=== PATIENT | male | born 1955 | race Caucasian/White ===

== ENCOUNTER 2017-07-31 10:56 | Inpatient (IN) | payer MEDICAID, OTHER ==
[2017-07-31 11:38] LABS: Amphetamine Screen,Urine Not Detected (NotDetected); Barbiturate Screen,Urine Not Detected (NotDetected); Benzodiazepines Screen,Urine Not Detected (NotDetected); Cocaine Screen,Urine Not Detected (NotDetected); Methadone Screen, Urine Not Detected (NotDetected); Opiate Screen,Urine Not Detected (NotDetected); Oxycodone Screen, Urine Not Detected (NotDetected); Phencyclidine Screen,Urine Not Detected (NotDetected); Tricyclic Antidepressant,Urine Not Detected (NotDetected); Urn Cannabinoid Scrn Not Detected (NotDetected)
--- NOTE | 2017-07-31 12:41 | ED ---
Psych HPI - General Chief Complaint: Psychiatric Symptoms Stated Complaint: Petitioned Time Seen by Provider: 07/31/17 11:07 Source: patient, police, RN notes reviewed Mode of arrival: ambulatory Limitations: no limitations - History of Present Illness Initial Comments: This a 62-year-old male presents emergency Department chief complaint of depression, suicidal ideation. Patient is brought to emergency by police and petition. Patient sent a text to his daughter stating that the next time they see him They will find him he will be with his brains blown out. Patient states that he is lonely because his in October any states that his daughters will not talk to home. Patient was found [place] with shotgun in vehicle. Patient has been drinking alcohol today states that he normally drinks after work states it is actually scheduled to go to work later today. Patient denies any physical complaints. - Related Data Home Medications Medication Instructions Recorded Confirmed Cholecalciferol [Vitamin D3] 1,000 unit PO DAILY 07/31/17 07/31/17 Multivitamins, Thera [Multivitamin 1 tab PO DAILY 07/31/17 07/31/17 (formulary)] [place]-3 Fatty Acids/Fish Oil [Fish 1 cap PO DAILY 07/31/17 07/31/17 Oil 1,000 mg Softgel] Tadalafil [Cialis] 20 mg PO DAILY PRN 07/31/17 07/31/17 Turmeric Root Extract [Turmeric] 500 mg PO DAILY 07/31/17 07/31/17 Allergies Allergy/AdvReac Type Severity Reaction Status Date / Time No Known Allergies Allergy Verified 07/31/17 11:53 Review of Systems ROS Statement: Those systems with pertinent positive or pertinent negative responses have been documented in the HPI. ROS Other: All systems not noted in ROS Statement are negative. Past Medical History Past Medical History: No Reported History History of Any Multi-Drug Resistant Organisms: None Reported Additional Past Surgical History / Comment(s): retina surgery Past Psychological History: Anxiety Smoking Status: Current every day smoker Past Alcohol Use History: Daily Past Drug Use History: Marijuana General Exam Limitations: no limitations General appearance: alert, in no apparent distress Head exam: Present: atraumatic, normocephalic, normal inspection Eye exam: Present: normal appearance, PERRL, EOMI. Absent: scleral icterus, conjunctival injection, periorbital swelling ENT exam: Present: normal exam, mucous membranes moist Neck exam: Present: normal inspection. Absent: tenderness, meningismus, lymphadenopathy Respiratory exam: Present: normal lung sounds bilaterally. Absent: respiratory distress, wheezes, rales, rhonchi, stridor Cardiovascular Exam: Present: regular rate, normal rhythm, normal heart sounds. Absent: systolic murmur, diastolic murmur, rubs, gallop, clicks GI/Abdominal exam: Present: soft, normal bowel sounds. Absent: distended, tenderness, guarding, rebound, rigid Neurological exam: Present: alert, oriented X3, CN II-XII intact Skin exam: Present: warm, dry, intact, normal color. Absent: rash Course Vital Signs 07/31/17 11:02 Temperature 98.5 F Pulse Rate 79 Respiratory 18 Rate Blood Pressure 156/96 O2 Sat by Pulse 97 Oximetry Medical Decision Making - Lab Data Lab Results 07/31/17 Range/Units 11:20 Urine Opiates Screen Not Detected (NotDetected) Ur Oxycodone Screen Not Detected (NotDetected) Urine Methadone Screen Not Detected (NotDetected) Ur Propoxyphene Screen Not Detected (NotDetected) Ur Barbiturates Screen Not Detected (NotDetected) U Tricyclic Antidepress Not Detected (NotDetected) Ur Phencyclidine Scrn Not Detected (NotDetected) Ur Amphetamines Screen Not Detected (NotDetected) U Methamphetamines Scrn Not Detected (NotDetected) U Benzodiazepines Scrn Not Detected (NotDetected) Urine Cocaine Screen Not Detected (NotDetected) U Marijuana (THC) Screen Not Detected (NotDetected) Disposition Clinical Impression: Depression, Suicidal ideation, Alcohol intoxication Disposition: ADMITTED IP TO THIS [facility] Condition: Stable Referrals: Moiz Goldstein MD [Primary Care Provider] - 1-2 days
[2017-07-31] MEDS ORDERED: ACETAMINOPHEN TAB 325 MG TAB PO PRN (18:49)
[2017-07-31] MEDS ORDERED: MAGNESIUM HYDROXIDE 2,400 MG/10 ML CUP PO PRN (18:49)
[2017-07-31] MEDS ORDERED: MAG HYDROX/AL HYDROX/SIMETH 30 ML CUP PO PRN (18:49)
[2017-07-31] MEDS ORDERED: LORazepam 1 MG TAB PO PRN (18:49)
[2017-07-31 21:18] VITALS: BMI 21.4
[2017-08-01] MEDS: NICOTINE 21MG/24HR PATCH TRANSDERM SCH (08:06)
[2017-08-01 09:00] LABS: Basophils % (A) 1 %; Eosinophils # (A) 0.1 k/uL (0-0.7); Eosinophils % (A) 1 %; HCT 49.8 % (39.0-53.0); HGB 16.7 gm/dL (13.0-17.5); Lymphocytes # (A) 1.1 k/uL (1.0-4.8); Lymphocytes % (A) 16 %; MCH 33.5 pg (25.0-35.0); MCHC 33.5 g/dL (31.0-37.0); MCV 99.9 fL (80.0-100.0); Mean Platelet Volume 7.5; Monocytes # (A) 0.6 k/uL (0-1.0); Monocytes % (A) 9 %; Neutrophils # (A) 4.9 k/uL (1.3-7.7); Neutrophils % (A) 72 %; Platelet Count 289 k/uL (150-450); RBC 4.99 m/uL (4.30-5.90); RDW 12.5 % (11.5-15.5); WBC 6.8 k/uL (3.8-10.6)
[2017-08-01 09:19] LABS: ALT 34 U/L (21-72); AST 42 U/L (17-59); Albumin 4.4 g/dL (3.5-5.0); Alkaline Phosphatase 75 U/L (38-126); Anion Gap 12 mmol/L; Blood Urea Nitrogen 8 mg/dL (9-20); Calcium 9.8 mg/dL (8.4-10.2); Carbon Dioxide 29 mmol/L (22-30); Chloride 99 mmol/L (98-107); Glucose 123 mg/dL (74-99); Potassium 4.6 mmol/L (3.5-5.1); Sodium 140 mmol/L (137-145); Total Bilirubin 1.3 mg/dL (0.2-1.3); Total Protein 7.3 g/dL (6.3-8.2)
[2017-08-01] MEDS: LORazepam 1 MG TAB PO SCH ×2 (10:09→20:06)
[2017-08-01] MEDS: ESCITALOPRAM 10 MG TAB PO SCH (10:09)
--- NOTE | 2017-08-01 10:13 | P.HP ---
Psychiatric H&P - . History & Physical: Allergies Allergy/AdvReac Type Severity Reaction Status Date / Time No Known Allergies Allergy Verified 07/31/17 20:51 Vital Signs Temp 97.5 F L 08/01/17 06:32 Pulse 59 L 08/01/17 06:32 Resp 16 08/01/17 06:32 BP 130/88 08/01/17 06:32 Pulse Ox 94 L 07/31/17 19:22 Intake & Output 07/31/17 08/01/17 08/01/17 18:59 06:59 18:59 Weight 76.204 kg 71.7 kg Laboratory Last Values WBC 6.8 k/uL (3.8-10.6) 08/01/17 08:26 RBC 4.99 m/uL (4.30-5.90) 08/01/17 08:26 Hgb 16.7 gm/dL (13.0-17.5) 08/01/17 08:26 Hct 49.8 % (39.0-53.0) 08/01/17 08:26 MCV 99.9 fL (80.0-100.0) 08/01/17 08:26 MCH 33.5 pg (25.0-35.0) 08/01/17 08:26 MCHC 33.5 g/dL (31.0-37.0) 08/01/17 08:26 RDW 12.5 % (11.5-15.5) 08/01/17 08:26 Plt Count 289 k/uL (150-450) 08/01/17 08:26 Neutrophils % 72 % 08/01/17 08:26 Lymphocytes % 16 % 08/01/17 08:26 Monocytes % 9 % 08/01/17 08:26 Eosinophils % 1 % 08/01/17 08:26 Basophils % 1 % 08/01/17 08:26 Neutrophils # 4.9 k/uL (1.3-7.7) 08/01/17 08:26 Lymphocytes # 1.1 k/uL (1.0-4.8) 08/01/17 08:26 Monocytes # 0.6 k/uL (0-1.0) 08/01/17 08:26 Eosinophils # 0.1 k/uL (0-0.7) 08/01/17 08:26 Basophils # 0.0 k/uL (0-0.2) 08/01/17 08:26 Sodium 140 mmol/L (137-145) 08/01/17 08:26 Potassium 4.6 mmol/L (3.5-5.1) 08/01/17 08:26 Chloride 99 mmol/L (98-107) 08/01/17 08:26 Carbon Dioxide 29 mmol/L (22-30) 08/01/17 08:26 Anion Gap 12 mmol/L 08/01/17 08:26 BUN 8 mg/dL (9-20) L 08/01/17 08:26 Creatinine 0.64 mg/dL (0.66-1.25) L 08/01/17 08:26 Est GFR (CKD-EPI)AfAm >90 (>60 ml/min/1.73 sqM) 08/01/17 08:26 Est GFR (CKD-EPI)NonAf >90 (>60 ml/min/1.73 sqM) 08/01/17 08:26 Glucose 123 mg/dL (74-99) H 08/01/17 08:26 Calcium 9.8 mg/dL (8.4-10.2) 08/01/17 08:26 Total Bilirubin 1.3 mg/dL (0.2-1.3) 08/01/17 08:26 AST 42 U/L (17-59) 08/01/17 08:26 ALT 34 U/L (21-72) 08/01/17 08:26 Alkaline Phosphatase 75 U/L (38-126) 08/01/17 08:26 Total Protein 7.3 g/dL (6.3-8.2) 08/01/17 08:26 Albumin 4.4 g/dL (3.5-5.0) 08/01/17 08:26 TSH 1.290 mIU/L (0.465-4.680) 08/01/17 08:26 Urine Opiates Screen Not Detected (NotDetected) 07/31/17 11:20 Ur Oxycodone Screen Not Detected (NotDetected) 07/31/17 11:20 Urine Methadone Screen Not Detected (NotDetected) 07/31/17 11:20 Ur Propoxyphene Screen Not Detected (NotDetected) 07/31/17 11:20 Ur Barbiturates Screen Not Detected (NotDetected) 07/31/17 11:20 U Tricyclic Antidepress Not Detected (NotDetected) 07/31/17 11:20 Ur Phencyclidine Scrn Not Detected (NotDetected) 07/31/17 11:20 Ur Amphetamines Screen Not Detected (NotDetected) 07/31/17 11:20 U Methamphetamines Scrn Not Detected (NotDetected) 07/31/17 11:20 U Benzodiazepines Scrn Not Detected (NotDetected) 07/31/17 11:20 Urine Cocaine Screen Not Detected (NotDetected) 07/31/17 11:20 U Marijuana (THC) Screen Not Detected (NotDetected) 07/31/17 11:20 08/01/17 10:03 IDENTIFYING DATA: This patient is a 62-year-old who was admitted to the mental health unit through the emergency room for acute suicidal ideation. HPI: The patient was found [place] the [place] at his 's grave consuming alcohol and he had a firearm in his vehicle. He admits that he sent a text message to family members stating he was going to "blow my head off". The patient states he has been depressed ever since the sudden of his at the end of September last year. After 36 years of marriage she suddenly of a myocardial infarction. He reports feeling depressed he has been more tearful over the last 6-8 months. Appetite is been poor he has lost weight. Energy level is poor sleep is poor. He endorses feeling hopeless area he states he feels extremely lonely. He states he has gotten to this point as he has no family that visits him. He admits his alcohol use probably has driven away some family members. He has been drinking on a daily basis and states alcohol has always been part of his life. There are times when he more excessively drinks. He is reporting no homicidal ideation he is endorsing no auditory or visual hallucinations. He states he believes his 's ghost is in the house as he will hear different noises. He endorses no paranoid or persecutory thoughts. He endorses no history of hypomanic or manic episodes. He believes that the sustainable development policy analyst has taken his firearms from his home. PAST PSYCHIATRIC HISTORY: This is the patient's first inpatient psychiatric admission, no history of suicide attempts prior to this, he states he's never been prescribed psychotropic medication. PMH: He reports after his 's he had a retinal tear of his left eye and a cataract of his right eye. ALLERGIES: NO KNOWN DRUG ALLERGIES MEDICATIONS: None CHEMICAL DEPENDENCY HISTORY: The patient uses alcohol on a daily basis consuming 4-6 beers at least and this can go as high as 8-10 beers. He states in the recent past he was overusing vodka. He reports that he grabbed a fifth of liquor and was consuming that last night before going to the cemetery. He has never been placed in residential treatment for chemical dependency reasons. He reports using marijuana once a month. He endorses no other use of illicit drugs. FAMILY PSYCHIATRIC HISTORY: He states that his father paternal grandmother and paternal aunts were all known to have signs of dementia after the age of 75, no suicides in the family FAMILY CHEMICAL DEPENDENCY HISTORY: Reports a nephew was arrested for substance use SOCIAL HISTORY: The patient is 62 years old he is a as of last September. He was for 36 years and states the marriage was good. He has 2 daughters that both reside approximate 20 minutes from his home. He has 2 sisters both younger than him. He had been off of work after the of his and his eye injury and recently returned to work 2 weeks ago. 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 He has a high school education no history of service. He is originally from [facility] [place] [facility]. Legal history includes an arrest for driving under the influence 1.5 years ago, no history of abuse. MENTAL STATUS EXAM: The patient is a male appearing his stated age, he has a disheveled appearance he is dressed in his own clothing. He is balding and wears a mustache. Eye contact is intermittent. He endorses a depressed and hopeless mood. He reports no thoughts of harming anyone else. He endorses no active auditory or visual hallucinations he endorses no specific delusions. There is no observed evidence of psychosis. Speech is fluent spontaneous nonpressured. He can be mildly circumstantial at times. He demonstrates no tangential thinking loose associations or flight of ideas. He does not appear hypomanic or manic. He demonstrates no abnormal involuntary movements, he demonstrates no verbal or physical aggressiveness. He maintains a constricted affect. He is oriented to person place and date. He is unable to spell world backwards but he is able to name the days of the week backwards. STRENGTHS/WEAKNESSES: Strengths: Housing, recent employment weaknesses: Alcohol use, isolation from family INTELLECTUAL FUNCTIONING: Average IMPRESSIONS: [] 1. 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 Ongoing grief related to loss of and disconnect from family members PLAN: The patient has been admitted to the mental health unit he has signed in voluntarily. We reviewed his presenting symptoms and treatment options. We decided to initiate Lexapro 10 mg daily for depressive and anxiety symptoms. We discussed potential benefits and side effects of Lexapro and his questions were answered. We will continue to use Ativan to prevent alcohol withdrawal. Vital signs are being monitored regularly. He will be seen by internal medicine for routine history and physical exam. Social work has met with the patient to complete a psychosocial assessment. We will monitor him for safety and encourage his full participation in the milieu. We will facilitate a support meeting involving friends and/or family as the patient will allow. We will verify his removal weapons from his home. We discussed the option of him attending inpatient chemical dependency treatment.
[2017-08-01] MEDS: FOLIC ACID 1 MG TAB PO SCH (11:09)
[2017-08-01] MEDS: MULTIVITAMINS, THERA 1 EACH TAB PO SCH (11:09)
[2017-08-01] MEDS: CHOLECALCIFEROL 1,000 UNIT TAB PO SCH (11:09)
[2017-08-01] MEDS: THIAMINE 100 MG TAB PO SCH (11:09)
[2017-08-01] MEDS: traZODone HCL 50 MG TAB PO SCH (20:06)
--- NOTE | 2017-08-01 23:11 | CONS ---
CONSULTATION DATE OF SERVICE: 08/01/2017. REASON FOR CONSULTATION: Advice regarding anxiety and other multiple medical issues, requested by Dr. Hill. HISTORY OF PRESENT ILLNESS: This is a 62-year-old gentleman with a past medical history of anxiety, history of nicotine dependence, history of marijuana, being followed by Dr. Goldstein in the outpatient setting, is admitted for psychiatric evaluation. There is no history of any fevers or rigors. No history of headache, loss of consciousness or seizures. The patient apparently takes up to 4 beers. The patient is slightly anxious and jittery at this time. The patient also has a significant history of smoking also. PAST MEDICAL HISTORY: History of possible alcohol, history of restlessness and anxiety. HOME MEDICATIONS: 1. Turmeric extract 500 mg p.o. daily. 2. Cialis 20 mg daily p.r.n. 3. [place]-3 fatty acid daily. 4. Multivitamin D 3000 daily. ALLERGIES: None. FAMILY HISTORY: No history of heart disease or strokes in the family. SOCIAL HISTORY: History of marijuana, history of smoking, history of alcohol. REVIEW OF SYSTEMS: ENT: No diminished vision. CARDIOVASCULAR: No angina. RESPIRATORY: No cough. GI: No nausea. : No dysuria. NERVOUS SYSTEM: No numbness or weakness. ALLERGY: No asthma or hayfever. MUSCULOSKELETAL: As mentioned. HEMATOLOGY: Negative. ENDOCRINE: No history of diabetes or hypothyroidism. CONSTITUTIONAL: As mentioned. PSYCHIATRY: As mentioned. PHYSICAL EXAMINATION: Alert oriented x3. Pulse is 71, blood pressure 141/82, respiration 18, temperature 97.4, pulse ox 94% room air. HEENT: Conjunctivae normal. NECK: No JVD. CARDIOVASCULAR: S1 and S2 muffled. LUNGS: Breath sounds diminished at the bases. Few rhonchi. No crackles. ABDOMEN: Soft, nontender. No mass palpable. LEGS: No edema, no swelling. NERVOUS SYSTEM: Higher functions as mentioned earlier. Moves all 4 limbs. No focal deficits. Power and sensation grossly intact. No facial deviation. No signs of cerebellar dysfunction. Gait is normal. No sensory abnormalities. SKIN: No ulcer, rash or bleeding. LYMPHATICS: None. JOINTS: No deformity or arthropathy. LABS: CBC within normal limits. Sodium 140, potassium 4.6. ASSESSMENT: 1. Depression. 2. History of EtOH. 3. History of nicotine dependence. 4. History of THC. 5. History of retina surgery. 6. History of anxiety. RECOMMENDATIONS: This 62-year-old gentleman presented for psychiatric evaluation with multiple medical issues as mentioned earlier. I would recommend Habitrol patch, CIWA protocol, p.r.n. Ativan, supplement vitamins. We will follow the patient closely. The patient will be asked to follow up with primary physician closely. Thank you, Dr. Boyer, for letting us participate in this patient's care. CHARLENE / JONAHN: [id number] / MARIO
[2017-08-02] MEDS: NICOTINE 21MG/24HR PATCH TRANSDERM SCH (08:47)
[2017-08-02] MEDS: ESCITALOPRAM 10 MG TAB PO SCH (08:47)
[2017-08-02] MEDS: FOLIC ACID 1 MG TAB PO SCH (08:47)
[2017-08-02] MEDS: MULTIVITAMINS, THERA 1 EACH TAB PO SCH (08:48)
[2017-08-02] MEDS: CHOLECALCIFEROL 1,000 UNIT TAB PO SCH (08:48)
[2017-08-02] MEDS: THIAMINE 100 MG TAB PO SCH (08:48)
[2017-08-02] MEDS: LORazepam 1 MG TAB PO SCH ×2 (08:48→20:08)
--- NOTE | 2017-08-02 09:17 | P.PN ---
Progress Note - Text Interval history: The patient is found in group he follows me to an interview room. He reports his mood is improved. He states he was able to sleep last night with use of trazodone. Appetite stable. He was able to speak to his daughter via phone and he believes they are both going to visit this evening. He is looking forward to the opportunity to tell them how lonely he is been and he misses their company. He acknowledges that they are likely going to want him to stop drinking alcohol. We discussed treatment for his alcohol use disorder and he still does not wish to attend inpatient chemical dependency treatment. He states his plan is to attend AA after discharge. He has no questions regarding Lexapro. Mental status exam: The patient is alert he is a disheveled appearance he hasn' t shaved. Eye contact is appropriate speech is fluent spontaneous nonpressured. He reports feeling lonely but he feels safe here in the hospital. He is reporting no homicidal ideation intent or plan. He will be more hopeful if the meeting with his daughters goes well tonight. He is endorsing no auditory or visual hallucinations or any specific delusions. There is no observed evidence of psychosis. Thought process is mildly circumstantial he demonstrates no tangential thinking loose associations or flight of ideas. He does not appear hypomanic or manic. Insight and judgment improving. He remains oriented to person place and date. He demonstrates no verbal or physical aggressiveness. Plan: The patient will continue on the medication as prescribed. His vital signs are stable there is no observed evidence of alcohol withdrawal. We will start to taper off of the Ativan tomorrow. We will monitor him for safety and encourage his participation in the milieu. We will await the outcome of the visit with his daughters. If he demonstrates sufficient improvement he may be appropriate for discharge by end of the week.
[2017-08-02] MEDS: traZODone HCL 50 MG TAB PO SCH (20:08)
[2017-08-03] MEDS: ESCITALOPRAM 10 MG TAB PO SCH (09:33)
[2017-08-03] MEDS: NICOTINE 21MG/24HR PATCH TRANSDERM SCH (09:33)
[2017-08-03] MEDS: LORazepam 1 MG TAB PO SCH (09:35)
[2017-08-03] MEDS: MULTIVITAMINS, THERA 1 EACH TAB PO SCH (12:34)
[2017-08-03] MEDS: THIAMINE 100 MG TAB PO SCH (12:34)
[2017-08-03] MEDS: CHOLECALCIFEROL 1,000 UNIT TAB PO SCH (12:34)
[2017-08-03] MEDS: FOLIC ACID 1 MG TAB PO SCH (12:34)
--- NOTE | 2017-08-03 12:39 | P.PN ---
Progress Note - Text Progress Note Date: 08/03/17 Interval History: Patient is a 62-year-old male is being seen in coverage for Dr. Hill. Patient states that both of his daughters visited last night and that it went quite well. He states that his daughter who is getting this weekend in [place] has invited him to the wedding. Patient states that the woman that was living in his house will be moving out. He states that he is hopeful that the relationship with his daughters will continue to improve and go back to the way that it was in the past. Patient states that he is no longer having any suicidal thoughts and reported no signs of withdrawal stating that he is eating well. He states that he slept better last night than he has for quite some time. He states that he is continuing to grieve the loss of his 10 months ago but states that he is coping with this better. He states that he began a new job 2 weeks ago and will return to this job once he is discharged. Patient had no complaints of side effects from the medication. Mental Status: Appearance/Attitude: Patient is casually dressed, makes good eye contact and is cooperative. Behavior: Patient does not exhibit any psychomotor agitation or retardation and there is no tremulousness noted on exam. Speech/Language: Patient's speech is spontaneous of normal volume and rhythm and he is coherent. Thought Process: Patient is goal-directed there is no evidence of loose association or flight of ideas. Thought Content: Patient denies any auditory or visual hallucinations and no delusions or paranoid ideation is elicited. Patient states that he and his daughters visited last night and the visit went well. Patient states that he continues to grieve the loss of his . Patient is hopeful to be discharged so that he can attend his daughter's wedding on the weekend in [place]. Patient states that he slept well and is eating well. He reports no complaints of withdrawal. Suicidal/Homicidal Ideation: Patient denies any current suicidal or homicidal ideation. Sensorium/Cognition: Patient is alert and oriented to person, place, and time and his recent and remote memory are grossly intact. Mood/Affect: Patient's mood is pleasant and his affect is appropriate Insight/Judgment: Patient's insight and judgment are intact Assessment: Patient states that the visit with his daughters went well and that they have ironed out the difficulties amongst themselves. He states that he is here to be discharged so that he can attend his daughter's wedding in [place] this weekend. Patient states that he is not feeling tremulous and he is able to eat well. He reports that he is sleeping better than he has for some period of time. Patient reports no side effects from the medication. Patient has been attending groups and activities. Plan: Patient will continue on Lexapro 10 mg and trazodone 50 mg, will discontinue patient's scheduled Ativan and continue the Ativan as needed. Patient's vital signs are stable. Patient continues to require hospitalization to further stabilize his mood, anticipate discharge within the next day or 2.
[2017-08-03] MEDS: traZODone HCL 50 MG TAB PO SCH (21:47)
[2017-08-04 06:45] VITALS: BP 156/88; PULSE 60; RESP 18; TEMP 97.4
[2017-08-04] MEDS: THIAMINE 100 MG TAB PO SCH (08:48)
[2017-08-04] MEDS: MULTIVITAMINS, THERA 1 EACH TAB PO SCH (08:48)
[2017-08-04] MEDS: FOLIC ACID 1 MG TAB PO SCH (08:48)
[2017-08-04] MEDS: ESCITALOPRAM 10 MG TAB PO SCH (08:48)
[2017-08-04] MEDS: CHOLECALCIFEROL 1,000 UNIT TAB PO SCH (08:48)
[2017-08-04] MEDS: NICOTINE 21MG/24HR PATCH TRANSDERM SCH (08:48)
--- NOTE | 2017-08-04 09:07 | P.DS ---
Providers Date of admission: 07/31/17 18:39 Expected date of discharge: 08/04/17 Attending physician: [place] Consults: 08/01/17 12:50 Consult Physician Routine Consulting Provider: Donna Albarado Consult Reason/Comments: H & P & medical management Do you want consulting provider notified?: Already Contacted Primary care physician: Moiz Goldstein - Discharge Diagnosis(es) (1) Major depressive disorder, single episode, severe w psychotic behavior Current Visit: Yes Status: Acute Priority: High (2) Alcohol use disorder Current Visit: Yes Status: Acute Priority: High Hospital Course: Brief summary of admission note: This patient is a 62-year-old who was admitted to the mental health unit through the emergency room for acute suicidal ideation. [place] and he had a firearm in his vehicle. He was at his 's grave and had sent text messages to family stating he was going to shoot himself. His at the end of September last year after 36 years of marriage. He reported feeling depressed tearful and it had been getting worse. Sleep had been poor appetite decreased and he felt hopeless. He felt overwhelmed as well by his daughter's having little contact with him. For full details please refer to my psychiatric evaluation dictated 08/01/2017. Summary of hospital course: The patient was admitted to the mental health unit voluntarily. We reviewed his presenting symptoms and medication options. We decided to treat his symptoms of depression with Lexapro 10 mg daily. We initiated trazodone 50 mg at bedtime for sleep which she found effective. He reported no side effects from either medication. He was seen by internal medicine for routine history and physical exam. We did schedule him Ativan twice daily for several days and this was discontinued. He demonstrated no overt evidence of alcohol withdrawal. We discussed his excessive use of alcohol and recommended that he attend inpatient chemical dependency treatment but he declined that option. He states he will attend AA. He demonstrated no agitated behavior. He reports that a visit including his 2 daughters went quite well and he is much more hopeful that they will reconnect. Mental status exam: The patient is a male appearing his stated age. Eye contact is appropriate speech is fluent spontaneous nonpressured. He reports his mood is much better. He denies having any hopelessness thinking or any suicidal or homicidal ideation intent or plan. He states "I have too many goals". He is reporting no auditory or visual hallucinations or any specific delusions. There is no observed evidence of psychosis. Thought process is linear he demonstrates no tangential thinking loose associations or flight of ideas. He does not appear hypomanic or manic. He is oriented to person place and date. Affect is appropriately expressive. He demonstrates future oriented thinking. Impressions: 1. 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 Ongoing grief, strained relationship with daughters Plan: The patient is being discharged mental health unit today. He will continue on Lexapro 10 mg daily and trazodone 50 mg at bedtime. He will return to his own home. We believe he has no firearms at his home or in his vehicle. He does not wish to participate in inpatient chemical dependency treatment. He does not wish to have a medication prescribed for alcohol use disorder specifically. He plans on attending AA as an outpatient. He is agreeable to attend his outpatient mental health appointment which social work will arrange. We discussed that his safety risk is elevated with continued alcohol use. At this time there is no imminent safety risk he is appropriate for discharge to outpatient care. He is instructed to return to the hospital with any acute safety concerns. Patient Condition at Discharge: Stable Plan - Discharge Summary Discharge Rx Participant: Yes New Discharge Prescriptions: New Escitalopram [Lexapro] 10 mg PO DAILY #30 tab Nicotine 21Mg/24Hr Patch [Habitrol] 1 patch TRANSDERM DAILY #12 patch traZODone HCL [Desyrel] 50 mg PO HS #30 tab Continue Cholecalciferol [Vitamin D3] 1,000 unit PO DAILY Tadalafil [Cialis] 20 mg PO DAILY PRN PRN Reason: E.D. [place]-3 Fatty Acids/Fish Oil [Fish Oil 1,000 mg Softgel] 1 cap PO DAILY Multivitamins, Thera [Multivitamin (formulary)] 1 tab PO DAILY Discontinued Turmeric Root Extract [Turmeric] 500 mg PO DAILY Discharge Medication List Cholecalciferol [Vitamin D3] 1,000 unit PO DAILY 07/31/17 [History] Multivitamins, Thera [Multivitamin (formulary)] 1 tab PO DAILY 07/31/17 [History ] [place]-3 Fatty Acids/Fish Oil [Fish Oil 1,000 mg Softgel] 1 cap PO DAILY [History] Tadalafil [Cialis] 20 mg PO DAILY PRN 07/31/17 [History] Escitalopram [Lexapro] 10 mg PO DAILY #30 tab 08/04/17 [Rx] Nicotine 21Mg/24Hr Patch [Habitrol] 1 patch TRANSDERM DAILY #12 patch 08/04/17 [ Rx] traZODone HCL [Desyrel] 50 mg PO HS #30 tab 08/04/17 [Rx] Follow up Appointment(s)/Referral(s): Moiz Goldstein MD [Primary Care Provider] - 1-2 days
== END 2017-08-04 13:21 | disposition home or self-care (01) | DRG 885 ==
LOC: EC 10:56 → 3MHU 18:39
PROVIDERS: ADMIT Psychiatry & Neurology Psychiatry; ATTEND Psychiatry & Neurology Psychiatry
DX: F32.3 Major depressive disorder, single episode, severe with psychotic features (principal); R45.851 Suicidal ideations; F12.90 Cannabis use, unspecified, uncomplicated; F10.129 Alcohol abuse with intoxication, unspecified; F17.210 Nicotine dependence, cigarettes, uncomplicated; F41.9 Anxiety disorder, unspecified; H26.9 Unspecified cataract; F43.21 Adjustment disorder with depressed mood
CPT/HCPCS: 80053; 80306; 82075; 84443; 85025; 99285

== ENCOUNTER 2021-08-24 03:06 | Inpatient (IN) | payer MEDICARE ==
[2021-08-24] MEDS ORDERED: SODIUM CHLORIDE 0.9% 1,000 ML IV STA (03:09)
--- NOTE | 2021-08-24 03:10 | ED ---
Alcohol HPI - General Stated Complaint: ETOH Time Seen by Provider: 08/24/21 03:09 Source: RN notes reviewed, old records reviewed Mode of arrival: EMS Limitations: altered mental status - History of Present Illness Initial Comments: There is a 66 show male was a very poor historian secondary to alcohol intoxication apparently presented today for evaluation regarding multiple falls. Patient poor story history obtained by EMS and patient's prior charting. 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 ROS Other: All systems not noted in ROS Statement are negative. Past Medical History Past Medical History: No Reported History History of Any Multi-Drug Resistant Organisms: None Reported Additional Past Surgical History / Comment(s): retina surgery Past Psychological History: Anxiety Past Alcohol Use History: Daily Past Drug Use History: Marijuana - Past Family History Father Additional Family Medical History / Comment(s): alzheimers General Exam General appearance: alert, in no apparent distress Head exam: Present: atraumatic, normocephalic, normal inspection Eye exam: Present: normal appearance, PERRL, EOMI. Absent: scleral icterus, co njunctival injection, periorbital swelling ENT exam: Present: normal exam, mucous membranes moist Neck exam: Present: normal inspection. Absent: tenderness, meningismus, lymphadenopathy Respiratory exam: Present: normal lung sounds bilaterally. Absent: respiratory distress, wheezes, rales, rhonchi, stridor Cardiovascular Exam: Present: regular rate, normal rhythm, normal heart sounds. Absent: systolic murmur, diastolic murmur, rubs, gallop, clicks GI/Abdominal exam: Present: soft, normal bowel sounds. Absent: distended, tenderness, guarding, rebound, rigid Extremities exam: Present: normal inspection, full ROM, normal capillary refill. Absent: tenderness, pedal edema, joint swelling, calf tenderness Back exam: Present: normal inspection Neurological exam: Present: alert, oriented X3, CN II-XII intact Psychiatric exam: Present: normal affect, normal mood Skin exam: Present: warm, dry, intact, normal color. Absent: rash Course Vital Signs 08/24/21 08/24/21 03:07 05:44 Temperature 98.9 F 98.9 F Pulse Rate 77 78 Respiratory 18 18 Rate Blood Pressure 128/82 112/71 O2 Sat by Pulse 95 95 Oximetry - Reevaluation(s) Reevaluation #1: 08/24/21 Medical record is reviewed Reevaluation #2: 08/24/21 Patient informed of results and questions answered Reevaluation #3: 08/24/21 remained severely intoxicated here in the ER, no clinical improvement will be admitted for alcohol poisoning - Consultations Consultation #1: Spoke with admitting physicians who agree to admit this patient Medical Decision Making - Medical Decision Making 66 male significantly alcohol intoxicated. Patient be admitted for alcohol intoxication, patient also has suspected multiple electrolyte derangements - Lab Data Result diagrams: 08/25/21 06:33 08/25/21 06:33 Lab Results 08/24/21 08/24/21 08/24/21 Range/Units 03:20 03:49 03:49 WBC 4.6 (3.8-10.6) k/uL RBC 4.08 L (4.30-5.90) m/uL Hgb 13.9 (13.0-17.5) gm/dL Hct 41.3 (39.0-53.0) % MCV 101.1 H (80.0-100.0) fL MCH 34.1 (25.0-35.0) pg MCHC 33.8 (31.0-37.0) g/dL RDW 15.4 (11.5-15.5) % Plt Count 73 L (150-450) k/uL MPV 9.2 Neutrophils % 69 % Lymphocytes % 22 % Monocytes % 7 % Eosinophils % 0 % Basophils % 1 % Neutrophils # 3.1 (1.3-7.7) k/uL Lymphocytes # 1.0 (1.0-4.8) k/uL Monocytes # 0.3 (0-1.0) k/uL Eosinophils # 0.0 (0-0.7) k/uL Basophils # 0.0 (0-0.2) k/uL Manual Slide Review Performed Macrocytosis Slight Target Cells Present PT 10.2 (9.0-12.0) sec INR 0.9 (<1.2) Sodium 139 (137-145) mmol/L Potassium 5.6 H (3.5-5.1) mmol/L Chloride 104 (98-107) mmol/L Carbon Dioxide 24 (22-30) mmol/L Anion Gap 11 mmol/L BUN 9 (9-20) mg/dL Creatinine 0.57 L (0.66-1.25) mg/dL Est GFR (CKD-EPI)AfAm >90 (>60 ml/min/1.73 sqM) Est GFR (CKD-EPI)NonAf >90 (>60 ml/min/1.73 sqM) Glucose 85 (74-99) mg/dL Calcium 7.9 L (8.4-10.2) mg/dL Phosphorus 3.7 (2.5-4.5) mg/dL Magnesium 1.5 L (1.6-2.3) mg/dL Total Bilirubin 1.5 H (0.2-1.3) mg/dL AST 258 H (17-59) U/L ALT 80 H (4-49) U/L Alkaline Phosphatase 169 H (38-126) U/L Total Protein 7.7 (6.3-8.2) g/dL Albumin 4.2 (3.5-5.0) g/dL Lipase 114 (23-300) U/L Serum Alcohol 410 H* mg/dL Disposition Clinical Impression: Alcohol intoxication, Alcohol use disorder, Alcohol poisoning, Alcohol abuse, Alcohol withdrawal syndrome Disposition: ADMITTED IP TO THIS HOSP Condition: Fair Is patient prescribed a controlled substance at d/c from ED?: No Time of Disposition: 05:00
--- NOTE | 2021-08-24 03:41 | CT ---
EXAMINATION TYPE: CT brain patsyine wo con DATE OF EXAM: 08/24/2021 COMPARISON: None HISTORY: ETOH, with fall, no prior CT DLP: 1449.8 mGycm Automated exposure control for dose reduction was used. Images of the brain and cervical spine obtained with no contrast. There is cerebral cortical atrophy. There is no mass effect or midline shift. There is no sign of int racranial hemorrhage. The calvarium is intact. There is normal aeration of the mastoid sinuses. Skull base is intact. There is normal alignment of the cervical vertebra. There is degenerative disc space narrowing at C5- 6. Posterior elements are intact. No compression fracture. Facet joints are intact. IMPRESSION: Spondylotic changes at C5-6. Mild degenerative disc change also at C3-4. No fracture. Cerebral atrophy. No acute intracranial abnormality.
[2021-08-24 03:46] LABS: ALT 80 U/L (4-49); AST 258 U/L (17-59); African American GFR (CKD) >90 (>60 ml/min/1.73 sqM); Albumin 4.2 g/dL (3.5-5.0); Alkaline Phosphatase 169 U/L (38-126); Anion Gap 11 mmol/L; Blood Urea Nitrogen 9 mg/dL (9-20); Calcium 7.9 mg/dL (8.4-10.2); Carbon Dioxide 24 mmol/L (22-30); Chloride 104 mmol/L (98-107); Glucose 85 mg/dL (74-99); Lipase 114 U/L (23-300); Magnesium 1.5 mg/dL (1.6-2.3); Non-African American GFR(CKD) >90 (>60 ml/min/1.73 sqM); Phosphorus 3.7 mg/dL (2.5-4.5); Sodium 139 mmol/L (137-145); Total Bilirubin 1.5 mg/dL (0.2-1.3); Total Protein 7.7 g/dL (6.3-8.2)
[2021-08-24 03:59] LABS: Alcohol 410 mg/dL; Potassium 5.6 mmol/L (3.5-5.1)
[2021-08-24 04:11] LABS: INR 0.9 (<1.2); Prothrombin Time 10.2 sec (9.0-12.0)
[2021-08-24 04:20] LABS: Basophils % (A) 1 %; Eosinophils % (A) 0 %; HCT 41.3 % (39.0-53.0); HGB 13.9 gm/dL (13.0-17.5); Lymphocytes % (A) 22 %; MCH 34.1 pg (25.0-35.0); MCHC 33.8 g/dL (31.0-37.0); MCV 101.1 fL (80.0-100.0); Macrocytosis Slight; Mean Platelet Volume 9.2; Monocytes # (A) 0.3 k/uL (0-1.0); Monocytes % (A) 7 %; Neutrophils # (A) 3.1 k/uL (1.3-7.7); Neutrophils % (A) 69 %; RBC 4.08 m/uL (4.30-5.90); RDW 15.4 % (11.5-15.5); WBC 4.6 k/uL (3.8-10.6)
[2021-08-24 04:30] LABS: Platelet Count 73 k/uL (150-450); Target Cells Present
[2021-08-24] MEDS ORDERED: THIAMINE 100 MG/ML 2 ML VIAL IM STA (05:03)
[2021-08-24] MEDS ORDERED: MORPHINE SULFATE 4 MG/ML SYRINGE IV PRN (05:03)
[2021-08-24] MEDS ORDERED: LORazepam 2 MG/ML INJ IV PRN ×3 (05:03)
[2021-08-24] MEDS ORDERED: ONDANSETRON 4 MG/2 ML VIAL IVP PRN (05:03)
[2021-08-24] MEDS ORDERED: NALOXONE 0.4 MG/ML 1 ML VIAL IV PRN (05:03)
[2021-08-24] MEDS: DEXTROSE 5%-0.45% NACL 1,000 ML IV SCH ×3 (05:45→22:01)
[2021-08-24] MEDS: MAGNESIUM OXIDE 400 MG TAB PO SCH ×4 (10:32→22:00)
[2021-08-24] MEDS: diazePAM 5 MG TAB PO SCH ×3 (10:33→22:00)
[2021-08-24] MEDS: NICOTINE 21MG/24HR PATCH TRANSDERM SCH (10:33)
[2021-08-24] MEDS: METOPROLOL TARTRATE 12.5 MG TAB PO SCH ×2 (10:35→21:38)
[2021-08-24] MEDS: IPRATROPIUM-ALBUTEROL 3 ML NEB INHALATION SCH ×2 (12:20→19:26)
[2021-08-24] MEDS: LORazepam 2 MG/ML INJ IV PRN ×2 (15:46→18:10)
[2021-08-24] MEDS: THIAMINE 100 MG TAB PO SCH (16:44)
--- NOTE | 2021-08-24 18:25 | P.HPIM ---
History of Present Illness H&P Date: 08/24/21 Chief Complaint: Fall This is a pleasant 66-year-old patient who follows with Dr. Moiz Goldstein. Patient is been drinking alcohol for a very long time. What he described as nearly all his life. Currently drinking 1/5 of walk, daily. Patient had been cleared for urine half a started back again few months ago. Also been long- standing cigarette smoker. Patient is started to fall at home not getting weak in his arms and legs. Having tremors. Does not eat very well. Patient also has a condition where he keeps itching and scratching himself. Patient does want to stop. His last drink was yesterday. Finally decided to call EMS as he wanted to stop drinking. He is not hallucinating. He was started on CIWA scale. I did tolerate the some breakfast this morning. Review of systems: GEN.: Tired and weak decreased appetite EYES: None HEENT: None NECK: None RESPIRATORY: Some wheezing and cough CARDIOVASCULAR: None GASTROINTESTINAL: None GENITOURINARY: None MUSCULOSKELETAL: Muscle weakness LYMPHATICS: None HEMATOLOGICAL: None PSYCHIATRY: Anxious NEUROLOGICAL: Tremors Past medical history to include: Alcohol use disorder. Cigarette smoker Social history: Lives alone. 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 1/5 of vodka a day currently. Smokes 2 packs a day for close to 48 years Family history: Alzheimer's Physical examination: VITAL SIGNS: 98.2, 78, 18, 112/71, 95% room air, GENERAL: BMI 21.2, laying in bed, awake, tired appearing. EYES: Pupils equal. Conjunctiva normal. HEENT: External appearance of nose and ears normal, oral cavity grossly normal. Several areas of scratch angel with surrounding inflammation on the forehead NECK: JVD not raised; masses not palpable. HEART: First and second heart sounds are normal; no edema. LUNGS: Respiratory rate increased; diminished breath sounds. ABDOMEN: Soft, nontender, liver spleen not palpable, no masses palpable. PSYCH: Alert and oriented x3; mood and affect anxiousl. MUSCULOSKELETAL:No Clubbing/cyanosis;muscles-grossly intact. Loss of muscle mass. Loss of subcutaneous fat NEUROLOGICAL: Cranial nerves grossly intact; no facial asymmetry, power and sensation grossly intact. Tremors LYMPHATICS: No lymph nodes palpable in the axilla and neck INVESTIGATIONS, reviewed in the clinical context: White count 4.6 hemoglobin 13.9 platelets 73 sodium 139 potassium 5.6 creatinine 0.57 magnesium 1.5 AST 258 ALT 80 Serum alcohol 410 Chest x-ray film personally reviewed by me-some hyperinflation. Some chronic changes reported by radiologist. Assessment and plan: -Alcohol withdrawal syndrome Start Valium 5 mg every 8. Lopressor 12.5 mg twice a day to cut back and somebody drive. CIWA scale. -Alcohol use disorder Discussed with patient. Consult social service worker to help with placement to [place] -Hypomagnesemia from poor oral intake. 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 Fall precautions. Hydrate. -COPD in a current smoker DuoNeb -Chronic nicotine dependence, cigarette smoker Nicotine patch -Thrombocytopenia due to alcohol liver disease and alcoholism Follow DuoNeb. Valium. CIWA scale. Fall precautions. Lopressor. Given ultrasound. Repeat labs tomorrow. social work manager consult. Given the complexity and severity of patient's condition expect the patient to be in the hospital at least for 2 overnights Past Medical History Past Medical History: COPD History of Any Multi-Drug Resistant Organisms: None Reported Additional Past Surgical History / Comment(s): retina surgery Past Anesthesia/Blood Transfusion Reactions: No Reported Reaction Past Psychological History: Anxiety Smoking Status: Current every day smoker Past Alcohol Use History: Daily Additional Past Alcohol Use History / Comment(s): Fith of vodka a day. Past Drug Use History: Marijuana Additional Drug Use History / Comment(s): Occasional Mrijuanna use - Past Family History Father Additional Family Medical History / Comment(s): alzheimers Medications and Allergies Home Medications Medication Instructions Recorded Confirmed Type No Known Home Medications 08/24/21 08/24/21 History Allergies Allergy/AdvReac Type Severity Reaction Status Date / Time No Known Allergies Allergy Verified 08/24/21 03:13 Physical Exam Vitals: Vital Signs Temp Pulse Pulse Resp BP BP Pulse Ox 08/24/21 07:51 98.2 F 71 18 150/92 96 08/24/21 05:44 98.9 F 78 18 112/71 95 08/24/21 03:07 98.9 F 77 18 128/82 95 Intake and Output 08/23/21 08/24/21 08/24/21 22:59 06:59 14:59 Output Total 350 Balance -350 Output: Urine 350 Other: Weight 70.76 kg 70.76 kg Results CBC & Chem 7: 08/24/21 03:49 08/25/21 06:33 Labs: Abnormal Lab Results - Last 24 Hours (Table) 08/24/21 08/24/21 Range/Units 03:20 03:49 RBC 4.08 L (4.30-5.90) m/uL MCV 101.1 H (80.0-100.0) fL Plt Count 73 L (150-450) k/uL Potassium 5.6 H (3.5-5.1) mmol/L Creatinine 0.57 L (0.66-1.25) mg/dL Calcium 7.9 L (8.4-10.2) mg/dL Magnesium 1.5 L (1.6-2.3) mg/dL Total Bilirubin 1.5 H (0.2-1.3) mg/dL AST 258 H (17-59) U/L ALT 80 H (4-49) U/L Alkaline Phosphatase 169 H (38-126) U/L Serum Alcohol 410 H* mg/dL Thrombosis Risk Factor Assmnt - Choose All That Apply Any of the Below Risk Factors Present?: Yes Each Factor Represents 1 point: Abnormal pulmonary function (COPD) Other Risk Factors: Yes Each Risk Factor Represents 2 Points: Age 61-74 years Other congenital or acquired thrombophilia - If yes, enter type in comment: No Thrombosis Risk Factor Assessment Total Risk Factor Score: 3 Thrombosis Risk Factor Assessment Level: Moderate Risk
[2021-08-25] MEDS: DEXTROSE 5%-0.45% NACL 1,000 ML IV SCH ×3 (07:21→22:59)
[2021-08-25] MEDS: IPRATROPIUM-ALBUTEROL 3 ML NEB INHALATION SCH ×3 (08:19→22:08)
[2021-08-25] MEDS: THIAMINE 100 MG TAB PO SCH ×2 (08:33→16:53)
[2021-08-25] MEDS: diazePAM 5 MG TAB PO SCH ×3 (08:33→22:59)
[2021-08-25] MEDS: METOPROLOL TARTRATE 12.5 MG TAB PO SCH (08:33)
[2021-08-25] MEDS: NICOTINE 21MG/24HR PATCH TRANSDERM SCH (08:33)
[2021-08-25] MEDS: MAGNESIUM OXIDE 400 MG TAB PO SCH ×3 (08:33→22:59)
--- NOTE | 2021-08-25 08:38 | US ---
EXAMINATION TYPE: US abdomen limited DATE OF EXAM: 08/25/2021 COMPARISON: NONE CLINICAL HISTORY: Increased liver enzymes. Alcoholic. Increased liver enzymes. Alcoholic. EXAM MEASUREMENTS: Liver Length: 18.3 cm Gallbladder Wall: 0.21 cm CBD: 0.54 cm Right Kidney: 12.6 x 6.2 x 4.2 cm Exam is limited due to gas. Pancreas: Limited due to gas. Liver: Appears heterogeneous with increased echogenicity and attenuation. Measures enlarged. Gallbladder: Echogenic material is seen throughout. Appears distended measuring 10.7 cm in length. Evidence for sonographic Whatley's sign: No CBD: Portions seen appear wnl Right Kidney: No hydronephrosis or masses seen. Slightly enlarged versus upper limits. IMPRESSION: Correlate for possible hepatocellular disease, hepatic steatosis, suspect hepatomegaly. P ossible tumefactive sludge within the gallbladder. Limited exam.
[2021-08-25 09:16] LABS: African American GFR (CKD) 130.9 (60.0-200.0); Albumin 3.4 g/dL (3.8-4.9); Albumin/Globulin Ratio 1.26 (1.60-3.17); Anion Gap 10.7 mmol/L (10.00-18.00); BUN/Creat Ratio 9.4 Ratio (12.00-20.00); Blood Urea Nitrogen 4.7 mg/dL (9.0-27.0); Calcium 8.5 mg/dL (8.7-10.3); Carbon Dioxide 27.3 mmol/L (20.0-27.5); Globulin 2.7 g/dL (1.6-3.3); Magnesium 1.5 mg/dL (1.5-2.4); Non-African American GFR(CKD) 112.9 (60.0-200.0); Phosphorus 2.6 mg/dL (2.4-5.1); Potassium 3.7 mmol/L (3.5-5.5); Total Bilirubin 0.7 mg/dL (0.30-1.20); Total Protein 6.1 g/dL (6.2-8.2)
[2021-08-25 09:27] LABS: Hepatitis A Antibody IgM Nonreactive (Nonreactive); Hepatitis B Core IgM Nonreactive (Nonreactive); Hepatitis B Surface Antigen Nonreactive (Nonreactive); Hepatitis C IgG Antibody Nonreactive (Nonreactive)
--- NOTE | 2021-08-25 09:35 | XR ---
EXAMINATION TYPE: XR chest 2V DATE OF EXAM: 08/25/2021 COMPARISON: NONE HISTORY: History of smoking, elevated liver enzymes, alcoholism, trauma TECHNIQUE: Frontal and lateral views of the chest are obtained. FINDINGS: Abnormal increased attenuation is noted on the lateral exam at the inferior aspect of the chest posteriorly, possible pleural-based density. There is a distal right clavicle fracture with bay onet apposition which appears to be chronic, possibly fused. No evident pneumothorax or pleural effus ion. Cardiac mediastinal silhouette is within normal limits. Suspect old rib fractures of the posteri or right fifth, seventh and ninth ribs, probable healing changes IMPRESSION: Evidence of remote trauma suspected. Indeterminate density at the posterior right lung b ase, consider chest CT
[2021-08-25 10:18] LABS: Basophils # (A) 0.02 X 10*3/uL (0.00-0.10); Basophils % (A) 0.5 %; Eosinophils # (A) 0.02 X 10*3/uL (0.04-0.35); Eosinophils % (A) 0.5 %; HGB 12.1 g/dL (13.0-17.0); Immature Grans, Automated 0.7 %; Immature Platelet Fraction 10.9 % (1.1-6.1); Lymphocytes # (A) 0.92 X 10*3/uL (0.90-5.00); Lymphocytes % (A) 22.1 %; MCHC 33.6 g/dL (32.0-37.0); MCV 98.1 fL (80.0-97.0); Monocytes # (A) 0.45 X 10*3/uL (0.20-1.00); Monocytes % (A) 10.8 %; NRBC Per 100 WBC 0 /100 WBCS (0.0-0.0); Neutrophils # (A) 2.73 X 10*3/uL (1.80-7.70); Neutrophils % (A) 65.4 %; Platelet Count 65 X 10*3/uL (140-440); RBC 3.67 X 10*6/uL (4.40-5.60); RDW 15.3 % (11.5-14.5); WBC 4.17 X 10*3/uL (4.50-10.00)
[2021-08-25] MEDS ORDERED: METOPROLOL TARTRATE 12.5 MG TAB PO STA (10:57)
[2021-08-25 15:51] VITALS: BMI 21.1
[2021-08-25] MEDS: METOPROLOL TARTRATE 25 MG TAB PO SCH ×2 (16:53→23:00)
--- NOTE | 2021-08-25 19:10 | XR ---
EXAMINATION TYPE: XR shoulder complete RT DATE OF EXAM: 08/25/2021 5:34 PM INDICATION: Patient age:Male; 66 years old; Reason for study: Recent Fall; COMPARISON: None TECHNIQUE: The right shoulder was examined in AP, internally rotated and axillary projections. FINDINGS: Deformity of the right clavicle with some possible osseous bony remodeling. Additional deformities of the right ribs are also present. No evidence of acute fracture. Soft tissues are grossly unremarkabl e. IMPRESSION: 1. No evidence of acute fracture. 2. Removal appearing distal right clavicle fracture. 3. Remote rib fractures.
--- NOTE | 2021-08-25 23:14 | P.PN ---
Progress Note - Text Progress Note Date: 08/25/21 Chief Complaint: Fall This is a pleasant 66-year-old patient who follows with Dr. Moiz Goldstein. Patient is been drinking alcohol for a very long time. What he described as nearly all his life. Currently drinking 1/5 of walk, daily. Patient had been cleared for urine half a started back again few months ago. Also been long- standing cigarette smoker. Patient is started to fall at home not getting weak in his arms and legs. Having tremors. Does not eat very well. Patient also has a condition where he keeps itching and scratching himself. Patient does want to stop. His last drink was yesterday. Finally decided to call EMS as he wanted to stop drinking. He is not hallucinating. He was started on CIWA scale. I did tolerate the some breakfast this morning. Admitted with alcohol withdrawal syndrome, alcoholic hepatitis, alcoholic myopathy, electrolyte abnormalities. Started on Valium. Lopressor. Other lites being replaced. August 25: Having significantly increased tremors. Trouble walking to the bathroom. Oral intake good. No hallucinations. Lopressor being increased to 25 mg 3 times a day. Continue with current dose of Valium. Care was discussed with the patient. Past medical history to include: Alcohol use disorder. Cigarette smoker Social history: Lives alone. 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 1/5 of vodka a day currently. Smokes 2 packs a day for close to 48 years Family history: Alzheimer's Physical examination: VITAL SIGNS: 97, 65, 18, 181/89, 95% room air GENERAL: Sitting up in a recliner EYES: Pupils equal. Conjunctiva normal. HEENT: External appearance of nose and ears normal, oral cavity grossly normal. Several areas of scratch angel with surrounding inflammation on the forehead NECK: JVD not raised; masses not palpable. HEART: First and second heart sounds are normal; no edema. LUNGS: Respiratory rate increased; diminished breath sounds. ABDOMEN: Soft, nontender, liver spleen not palpable, no masses palpable. PSYCH: Alert and oriented x3; mood and affect anxiousl. MUSCULOSKELETAL:No Clubbing/cyanosis;muscles-grossly intact. Loss of muscle mass. Loss of subcutaneous fat NEUROLOGICAL: Cranial nerves grossly intact; no facial asymmetry, power and sensation grossly intact. Increased Tremors INVESTIGATIONS, reviewed in the clinical context: ABDOMEN: LIVER HETEROGENEOUS WITH INCREASED ECHOGENICITY AND CONTINUATION. ENLARGED. August 25: White count 15.6 hemoglobin 14.3 potassium 4.3 bicarb 21 creatinine 0.89 White count 4.6 hemoglobin 13.9 platelets 73 sodium 139 potassium 5.6 creatinine 0.57 magnesium 1.5 AST 258 ALT 80 Serum alcohol 410 Chest x-ray film personally reviewed by me-some hyperinflation. Some chronic changes reported by radiologist. Assessment and plan: -Alcohol withdrawal syndrome: unControlled Valium 5 mg every 8. Increase Lopressor 25 mg 3 times a day for sympathetic drive. CIWA scale. -Alcohol use disorder Discussed with patient. Consult social worker school to help with placement to [place] -Hypomagnesemia from poor oral intake. Supplement with magnesium -Alcoholic hepatitis, with hepatomegaly Follow-up in GI outpatient. 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 Fall precautions. Hydrate. 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 Dietitian Continue DuoNeb. Valium. CIWA scale. Fall precautions. Increase Lopressor to 25 mg 3 times a day. Repeat magnesia. PTOT. Patient not ready for discharge.
[2021-08-26] MEDS: IPRATROPIUM-ALBUTEROL 3 ML NEB INHALATION SCH ×2 (07:37→10:58)
[2021-08-26] MEDS: METOPROLOL TARTRATE 25 MG TAB PO SCH ×2 (09:00→15:12)
[2021-08-26] MEDS: MAGNESIUM OXIDE 400 MG TAB PO SCH ×2 (09:01→15:12)
[2021-08-26] MEDS: diazePAM 5 MG TAB PO SCH (09:01)
[2021-08-26] MEDS: NICOTINE 21MG/24HR PATCH TRANSDERM SCH (09:01)
[2021-08-26] MEDS: THIAMINE 100 MG TAB PO SCH ×2 (09:01→17:22)
[2021-08-26 12:10] VITALS: BP 113/69; PULSE 74; RESP 16; TEMP 98.4
[2021-08-26] MEDS ORDERED: diazePAM 2 MG TAB PO SCH (16:00)
--- NOTE | 2021-08-26 19:00 | P.DS ---
Providers Date of admission: 08/24/21 05:03 Expected date of discharge: 08/26/21 Attending physician: Robbin Contreras Primary care physician: Moiz Goldstein [facility] Course: Chief Complaint: Fall This is a pleasant 66-year-old patient who follows with Dr. Moiz Goldstein. Patient is been drinking alcohol for a very long time. What he described as nearly all his life. Currently drinking 1/5 of walk, daily. Patient had been cleared for urine half a started back again few months ago. Also been long- standing cigarette smoker. Patient is started to fall at home not getting weak in his arms and legs. Having tremors. Does not eat very well. Patient also has a condition where he keeps itching and scratching himself. Patient does want to stop. His last drink was yesterday. Finally decided to call EMS as he wanted to stop drinking. He is not hallucinating. He was started on CIWA scale. I did tolerate the some breakfast this morning. Admitted with alcohol withdrawal syndrome, alcoholic hepatitis, alcoholic myopathy, electrolyte abnormalities. Started on Valium. Lopressor. Other lites being replaced. August 25: Having significantly increased tremors. Trouble walking to the bathroom. Oral intake good. No hallucinations. Lopressor being increased to 25 mg 3 times a day. Continue with current dose of Valium. Care was discussed with the patient. August 26: Patient was seen this morning.. Tremors are better. Valium cutback to 2 mg daily. Continue with Lopressor. Late in the evening nurse called me that patient left AMA. Past medical history to include: Alcohol use disorder. Cigarette smoker Social history: Lives alone. 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 1/5 of vodka a day currently. Smokes 2 packs a day for close to 48 years Family history: Alzheimer's Physical examination: VITAL SIGNS: 98.4, 74, 16, 11 3 x 69, 99% room air GENERAL: Sitting up in a recliner EYES: Pupils equal. Conjunctiva normal. HEENT: External appearance of nose and ears normal, oral cavity grossly normal. Several areas of scratch angel with surrounding inflammation on the forehead NECK: JVD not raised; masses not palpable. HEART: First and second heart sounds are normal; no edema. LUNGS: Respiratory rate increased; diminished breath sounds. ABDOMEN: Soft, nontender, liver spleen not palpable, no masses palpable. PSYCH: Alert and oriented x3; mood and affect anxiousl. MUSCULOSKELETAL:No Clubbing/cyanosis;muscles-grossly intact. Loss of muscle mass. Loss of subcutaneous fat NEUROLOGICAL: Cranial nerves grossly intact; no facial asymmetry, power and sensation grossly intact. Increased Tremors INVESTIGATIONS, reviewed in the clinical context: Hepatitis screen: Nonreactive ABDOMEN: LIVER HETEROGENEOUS WITH INCREASED ECHOGENICITY AND CONTINUATION. ENLARGED. August 25: White count 15.6 hemoglobin 14.3 potassium 4.3 bicarb 21 creatinine 0.89 White count 4.6 hemoglobin 13.9 platelets 73 sodium 139 potassium 5.6 creatinine 0.57 magnesium 1.5 AST 258 ALT 80 Serum alcohol 410 Chest x-ray film personally reviewed by me-some hyperinflation. Some chronic changes reported by radiologist. Assessment and plan: -Alcohol withdrawal syndrome: unControlled Valium 5 mg every 8. Increase Lopressor 25 mg 3 times a day for sympathetic drive. CIWA scale. -Alcohol use disorder Discussed with patient. Consult child protective services social worker to help with placement to [place] -Hypomagnesemia from poor oral intake. Supplement with magnesium -Alcoholic hepatitis, with hepatomegaly Follow-up in GI outpatient. 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 Fall precautions. Hydrate. 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 Dietitian Disposition: Patient left AMA Plan - Discharge Summary Discharge Rx Participant: Yes New Discharge Prescriptions: No Action No Known Home Medications Discharge Medication List No Known Home Medications 08/24/21 [History] Follow up Appointment(s)/Referral(s): [facility], [NON-STAFF] - As Needed (Dr. Goldstein stating patient needs follow up appointment after D/C prior to [facility] being able to accept patient. ) Viridiana Christie MD [STAFF PHYSICIAN] - 2 Weeks Moiz Goldstein MD [Primary Care Provider] - 1-2 days Discharge/Stand Alone Forms: AA Meetings [place], [facility], Outpatient Counseling Discharge Disposition: Left Against Medical Advice
== END 2021-08-26 18:50 | disposition left against medical advice (07) | DRG 894 ==
LOC: EC 03:06 → 5NMEDONC 05:03
PROVIDERS: ADMIT Hospitalist; ATTEND Hospitalist
PROC: HZ2ZZZZ Detoxification Services for Substance Abuse Treatment (ICD-10-PCS; principal; 2021-08-24)
DX: F10.229 Alcohol dependence with intoxication, unspecified (principal); G72.1 Alcoholic myopathy; E44.1 Mild protein-calorie malnutrition; F10.239 Alcohol dependence with withdrawal, unspecified; T51.0X1A Toxic effect of ethanol, accidental (unintentional), initial encounter; Z53.29 Procedure and treatment not carried out because of patient's decision for other reasons; E83.42 Hypomagnesemia; Z68.21 Body mass index [BMI] 21.0-21.9, adult; J44.9 Chronic obstructive pulmonary disease, unspecified; F17.210 Nicotine dependence, cigarettes, uncomplicated; D69.59 Other secondary thrombocytopenia; K70.10 Alcoholic hepatitis without ascites; F32.A Depression, unspecified; F41.9 Anxiety disorder, unspecified; W19.XXXA Unspecified fall, initial encounter; Y92.009 Unspecified place in unspecified non-institutional (private) residence as the place of occurrence of the external cause; Z82.0 Family history of epilepsy and other diseases of the nervous system; Y90.8 Blood alcohol level of 240 mg/100 ml or more
CPT/HCPCS: 36415; 70450; 71046; 72125; 76705; 80053; 80074; 80320; 83690; 83735; 84100; 85025; 85610; 93005; 94640; 96372; 99285

== ENCOUNTER 2021-08-27 06:36 | Emergency (ER) | payer MEDICARE ==
[2021-08-27 06:46] VITALS: TEMP 97.7
[2021-08-27] MEDS ORDERED: SODIUM CHLORIDE 0.9% 1,000 ML IV STA (07:04)
--- NOTE | 2021-08-27 07:23 | ED ---
Alcohol HPI - General Chief Complaint: Alcohol Stated Complaint: Alcohol withdrawal Time Seen by Provider: 08/27/21 07:00 Source: patient, RN notes reviewed Mode of arrival: ambulatory Limitations: no limitations - History of Present Illness Initial Comments: This a 66-year-old male presents emergency Department with chief complaint of alcohol issues. Patient was recently admitted patient states that he became angry at the staff from the way he is being treated he states that he left AGAINST MEDICAL ADVICE. Patient states he went home and his family was upset at him for leaving AGAINST MEDICAL ADVICE when he is receiving treatment for his alcohol issue. Patient states he did end up going and drinking a pint of vodka. Patient states he still feels like he is having withdrawal symptoms even no he was receiving treatment. Patient had issues with his platelets and magnesium is in the hospital. Patient denies any suicidal or homicidal denies any abdominal pain. - Related Data Previous Rx's Medication Instructions Recorded Metoprolol Tartrate [Lopressor] 25 mg PO BID #14 tablet 08/27/21 Allergies Allergy/AdvReac Type Severity Reaction Status Date / Time No Known Allergies Allergy Verified 08/27/21 06:46 Review of Systems ROS Statement: Those systems with pertinent positive or pertinent negative responses have been documented in the HPI. ROS Other: All systems not noted in ROS Statement are negative. Past Medical History Past Medical History: COPD History of Any Multi-Drug Resistant Organisms: None Reported Additional Past Surgical History / Comment(s): retina surgery Past Anesthesia/Blood Transfusion Reactions: No Reported Reaction Past Psychological History: Anxiety Smoking Status: Current every day smoker Past Alcohol Use History: Daily Past Drug Use History: Marijuana - Past Family History Father Additional Family Medical History / Comment(s): alzheimers General Exam Limitations: no limitations General appearance: alert, in no apparent distress Head exam: Present: atraumatic, normocephalic, normal inspection Eye exam: Present: normal appearance, PERRL, EOMI. Absent: scleral icterus, conjunctival injection, periorbital swelling ENT exam: Present: normal exam, normal oropharynx, mucous membranes moist Neck exam: Present: normal inspection, full ROM. Absent: tenderness, meningismus, lymphadenopathy Respiratory exam: Present: normal lung sounds bilaterally. Absent: respiratory distress, wheezes, rales, rhonchi, stridor Cardiovascular Exam: Present: regular rate, normal rhythm, normal heart sounds. Absent: systolic murmur, diastolic murmur, rubs, gallop, clicks GI/Abdominal exam: Present: soft, normal bowel sounds. Absent: distended, tende rness, guarding, rebound, rigid Course Vital Signs 08/27/21 06:41 Temperature 97.7 F Pulse Rate 97 Respiratory 20 Rate Blood Pressure 143/98 O2 Sat by Pulse 100 Oximetry Medical Decision Making - Medical Decision Making I did discuss case with Dr. Contreras. Patient was scheduled to be discharged today to [place]. Patient is advised to go to [facility] for alcohol rehab. Patient may be discharged with metoprolol 25 mg for his tremors. Patient was to be discontinued from his Valium. - Lab Data Result diagrams: 08/27/21 07:15 08/27/21 07:15 Lab Results 08/27/21 08/27/21 08/27/21 Range/Units 07:15 07:15 07:15 WBC 4.8 (3.8-10.6) k/uL RBC 4.17 L (4.30-5.90) m/uL Hgb 14.3 (13.0-17.5) gm/dL Hct 43.1 (39.0-53.0) % MCV 103.4 H (80.0-100.0) fL MCH 34.3 (25.0-35.0) pg MCHC 33.1 (31.0-37.0) g/dL RDW 15.4 (11.5-15.5) % Plt Count 113 L D (150-450) k/uL MPV 10.2 Neutrophils % 70 % Lymphocytes % 17 % Monocytes % 8 % Eosinophils % 2 % Basophils % 1 % Neutrophils # 3.3 (1.3-7.7) k/uL Lymphocytes # 0.8 L (1.0-4.8) k/uL Monocytes # 0.4 (0-1.0) k/uL Eosinophils # 0.1 (0-0.7) k/uL Basophils # 0.1 (0-0.2) k/uL Macrocytosis Slight Sodium 142 (137-145) mmol/L Potassium 3.7 (3.5-5.1) mmol/L Chloride 104 (98-107) mmol/L Carbon Dioxide 28 (22-30) mmol/L Anion Gap 10 mmol/L BUN 7 L (9-20) mg/dL Creatinine 0.62 L (0.66-1.25) mg/dL Est GFR (CKD-EPI)AfAm >90 (>60 ml/min/1.73 sqM) Est GFR (CKD-EPI)NonAf >90 (>60 ml/min/1.73 sqM) Glucose 78 (74-99) mg/dL Calcium 9.4 (8.4-10.2) mg/dL Magnesium 1.7 (1.6-2.3) mg/dL Total Bilirubin 0.6 (0.2-1.3) mg/dL AST 137 H (17-59) U/L ALT 68 H (4-49) U/L Alkaline Phosphatase 154 H (38-126) U/L Total Protein 7.9 (6.3-8.2) g/dL Albumin 4.3 (3.5-5.0) g/dL Amylase 76 (30-110) U/L Lipase 106 (23-300) U/L Urine Color Light Yellow Urine Appearance Clear (Clear) Urine pH 7.5 (5.0-8.0) Ur Specific [place] 1.003 (1.001-1.035) Urine Protein Negative (Negative) Urine Glucose (UA) Negative (Negative) Urine Ketones Negative (Negative) Urine Blood Negative (Negative) Urine Nitrite Negative (Negative) Urine Bilirubin Negative (Negative) Urine Urobilinogen <2.0 (<2.0) mg/dL Ur Leukocyte Esterase Negative (Negative) Serum Alcohol 101 mg/dL Disposition Clinical Impression: Alcohol abuse Disposition: HOME SELF-CARE Condition: Stable Instructions (If sedation given, give patient instructions): Abuse of Alcohol (ED) Additional Instructions: Please go to [facility] rehab facility.Please return to the Emergency Department if symptoms worsen or any other concerns. Prescriptions: Metoprolol Tartrate [Lopressor] 25 mg PO BID #14 tablet Is patient prescribed a controlled substance at d/c from ED?: No Referrals: Moiz Goldstein MD [Primary Care Provider] - 1-2 days Time of Disposition: 08:39
[2021-08-27 07:34] LABS: Basophils # (A) 0.1 k/uL (0-0.2); Basophils % (A) 1 %; Eosinophils # (A) 0.1 k/uL (0-0.7); Eosinophils % (A) 2 %; HCT 43.1 % (39.0-53.0); HGB 14.3 gm/dL (13.0-17.5); Lymphocytes # (A) 0.8 k/uL (1.0-4.8); Lymphocytes % (A) 17 %; MCH 34.3 pg (25.0-35.0); MCHC 33.1 g/dL (31.0-37.0); MCV 103.4 fL (80.0-100.0); Macrocytosis Slight; Mean Platelet Volume 10.2; Monocytes # (A) 0.4 k/uL (0-1.0); Monocytes % (A) 8 %; Neutrophils # (A) 3.3 k/uL (1.3-7.7); Neutrophils % (A) 70 %; Platelet Count 113 k/uL (150-450); RBC 4.17 m/uL (4.30-5.90); RDW 15.4 % (11.5-15.5); WBC 4.8 k/uL (3.8-10.6)
[2021-08-27 07:38] LABS: Appearance,Urine Clear (Clear); Bilirubin,Urine Negative (Negative); Blood,Urine Negative (Negative); Color,Urine Light Yellow; Glucose,Urine (UA) Negative (Negative); Ketones,Urine Negative (Negative); Leukocyte Esterase,Urine Negative (Negative); Nitrite,Urine Negative (Negative); PH, Urine 7.5 (5.0-8.0); Protein,Urine Negative (Negative); Specific Gravity,Urine 1.003 (1.001-1.035); Urobilinogen,Urine <2.0 mg/dL (<2.0)
[2021-08-27 07:43] LABS: ALT 68 U/L (4-49); AST 137 U/L (17-59); African American GFR (CKD) >90 (>60 ml/min/1.73 sqM); Albumin 4.3 g/dL (3.5-5.0); Alkaline Phosphatase 154 U/L (38-126); Amylase 76 U/L (30-110); Anion Gap 10 mmol/L; Blood Urea Nitrogen 7 mg/dL (9-20); Calcium 9.4 mg/dL (8.4-10.2); Carbon Dioxide 28 mmol/L (22-30); Chloride 104 mmol/L (98-107); Glucose 78 mg/dL (74-99); Lipase 106 U/L (23-300); Magnesium 1.7 mg/dL (1.6-2.3); Non-African American GFR(CKD) >90 (>60 ml/min/1.73 sqM); Potassium 3.7 mmol/L (3.5-5.1); Sodium 142 mmol/L (137-145); Total Bilirubin 0.6 mg/dL (0.2-1.3); Total Protein 7.9 g/dL (6.3-8.2)
[2021-08-27 07:47] LABS: Alcohol 101 mg/dL
[2021-08-27] MEDS ORDERED: diazePAM 5 MG TAB PO STA (08:24)
[2021-08-27] MEDS ORDERED: diazePAM 2 MG TAB PO STA (08:24)
[2021-08-27 09:25] VITALS: BP 138/82; PULSE 88; RESP 18
== END 2021-08-27 09:24 | disposition home or self-care (01) ==
LOC: EC 06:36
DX: F10.10 Alcohol abuse, uncomplicated (principal); J44.9 Chronic obstructive pulmonary disease, unspecified; F17.200 Nicotine dependence, unspecified, uncomplicated
CPT/HCPCS: 36415; 80053; 82150; 83690; 83735; 85025; 81003; 96360; 99284; G0480; 80320

== ENCOUNTER 2023-03-06 17:03 | Inpatient (IN) | payer MEDICARE ==
[2023-03-06] MEDS ORDERED: LORazepam 2 MG/ML INJ IV PRN ×2 (17:27)
[2023-03-06] MEDS ORDERED: SODIUM CHLORIDE 0.9% 500 ML 500 ML IV STA (17:27)
[2023-03-06] MEDS ORDERED: SODIUM CHLORIDE 0.9% 1,000 ML IV STA ×2 (17:27)
[2023-03-06] MEDS ORDERED: THIAMINE 100 MG/ML 2 ML VIAL IM STA (17:27)
--- NOTE | 2023-03-06 17:27 | ED ---
Alcohol HPI - General Chief Complaint: Recheck/Abnormal Lab/Rx Stated Complaint: Alcohol Time Seen by Provider: 03/06/23 17:09 Source: patient, EMS, RN notes reviewed, old records reviewed Mode of arrival: EMS Limitations: no limitations - History of Present Illness Initial Comments: This is a 67-year-old male to the ER today for evaluation of altered mental status Patient presents to the emergency department today for evaluation. Patient is alcoholic with last drink 3 days ago shaky, unwell and family states suicidal today. MD Complaint: alcohol intoxication, alcohol withdrawal, medical clearance for detox facility Last Drink: just DROP TESTER -: hour(s) Previous Visits for Alcohol Intoxication?: No Recent Trauma: No Associated Symptoms: denies other symptoms Treatments Prior to Arrival: none Chronic Alcohol Use: Yes - Related Data Home Medications Medication Instructions Recorded Confirmed EPINEPHrine [Primatene Mist] 1 puff INHALATION RT-QID PRN 03/06/23 03/09/23 Previous Rx's Medication Instructions Recorded Thiamine [Vitamin B-1] 100 mg PO DAILY tab 03/09/23 Acetaminophen Tab [Tylenol] 650 mg PO Q6HR PRN tab 03/15/23 Ibuprofen [Motrin] 600 mg PO BID PRN 30 Days #30 tab 03/15/23 Melatonin 5 mg PO HS 30 Days #30 tab 03/15/23 Naltrexone HCl [Revia] 50 mg PO DAILY 30 Days #30 tab 03/15/23 Nicotine 14Mg/24Hr Patch [Habitrol] 1 patch TRANSDERM DAILY 14 Days 03/15/23 #14 patch Nicotine Gum (Polacrilex) 2 mg BUCCAL Q2HR PRN pieceofgum 03/15/23 [Nicorette] Pregabalin [Lyrica] 50 mg PO BID 14 Days #28 cap 03/15/23 Sertraline [Zoloft] 100 mg PO HS 30 Days #30 tab 03/15/23 busPIRone HCl [Buspar] 10 mg PO TID 30 Days #90 tab 03/15/23 traZODone HCL [Desyrel] 25 mg PO HS PRN 30 Days #15 tab 03/15/23 Allergies Allergy/AdvReac Type Severity Reaction Status Date / Time No Known Allergies Allergy Verified 03/06/23 18:48 Review of Systems ROS Statement: Those systems with pertinent positive or pertinent negative responses have been documented in the HPI. ROS Other: All systems not noted in ROS Statement are negative. Past Medical History Past Medical History: COPD History of Any Multi-Drug Resistant Organisms: None Reported Additional Past Surgical History / Comment(s): retina surgery Past Anesthesia/Blood Transfusion Reactions: No Reported Reaction Past Psychological History: Anxiety Smoking Status: Current every day smoker Past Alcohol Use History: Daily Past Drug Use History: Marijuana - Past Family History Father Additional Family Medical History / Comment(s): alzheimers General Exam Limitations: altered mental status General appearance: alert, in no apparent distress, anxious, in distress Head exam: Present: atraumatic, normocephalic, normal inspection Eye exam: Present: normal appearance, PERRL, EOMI. Absent: scleral icterus, c onjunctival injection, periorbital swelling ENT exam: Present: normal exam, mucous membranes moist Neck exam: Present: normal inspection. Absent: tenderness, meningismus, lymphadenopathy Respiratory exam: Present: normal lung sounds bilaterally. Absent: respiratory distress, wheezes, rales, rhonchi, stridor Cardiovascular Exam: Present: regular rate, normal rhythm, normal heart sounds. Absent: systolic murmur, diastolic murmur, rubs, gallop, clicks GI/Abdominal exam: Present: soft, normal bowel sounds. Absent: distended, tenderness, guarding, rebound, rigid Extremities exam: Present: normal inspection, full ROM, normal capillary refill. Absent: tenderness, pedal edema, joint swelling, calf tenderness Back exam: Present: normal inspection Neurological exam: Present: alert, oriented X3, CN II-XII intact Psychiatric exam: Present: normal affect, normal mood Skin exam: Present: warm, dry, intact, normal color. Absent: rash Course Vital Signs 03/06/23 03/06/23 03/06/23 17:06 18:42 18:44 Temperature 97.7 F Pulse Rate 96 98 Respiratory 20 22 18 Rate Blood Pressure 169/88 146/85 O2 Sat by Pulse 98 97 Oximetry 03/06/23 03/06/23 03/06/23 19:00 20:00 21:00 Temperature Pulse Rate 98 86 79 Respiratory 19 23 22 Rate Blood Pressure 146/85 146/90 142/87 O2 Sat by Pulse 96 97 Oximetry 03/06/23 03/06/23 03/06/23 21:26 22:00 23:00 Temperature Pulse Rate 89 78 Respiratory 17 20 19 Rate Blood Pressure 147/83 147/83 133/84 O2 Sat by Pulse Oximetry 03/06/23 03/07/23 03/07/23 23:58 00:00 01:00 Temperature Pulse Rate 77 78 71 Respiratory 19 13 16 Rate Blood Pressure 153/93 153/93 154/84 O2 Sat by Pulse 98 98 Oximetry 03/07/23 03/07/23 03/07/23 01:06 02:00 02:36 Temperature Pulse Rate 71 79 68 Respiratory 17 18 18 Rate Blood Pressure 151/90 151/90 146/87 O2 Sat by Pulse Oximetry 03/07/23 03/07/23 03/07/23 03:00 04:00 04:54 Temperature Pulse Rate 65 86 68 Respiratory 17 22 17 Rate Blood Pressure 146/87 140/87 143/84 O2 Sat by Pulse Oximetry 03/07/23 03/07/23 03/07/23 05:00 06:00 06:17 Temperature 98.0 F Pulse Rate 68 64 65 Respiratory 16 12 17 Rate Blood Pressure 143/84 125/83 131/82 O2 Sat by Pulse 97 Oximetry 03/07/23 03/07/23 03/07/23 07:00 08:00 09:00 Temperature Pulse Rate 80 86 66 Respiratory 20 21 19 Rate Blood Pressure 131/82 137/78 110/73 O2 Sat by Pulse 93 L 96 Oximetry 03/07/23 03/07/23 03/07/23 10:00 11:00 12:00 Temperature Pulse Rate 62 81 58 L Respiratory 16 14 12 Rate Blood Pressure 121/83 121/83 122/61 O2 Sat by Pulse 96 Oximetry 03/07/23 03/07/23 03/07/23 13:00 14:00 15:00 Temperature Pulse Rate 62 56 L Respiratory 14 14 16 Rate Blood Pressure 120/64 116/63 O2 Sat by Pulse Oximetry 03/07/23 03/07/23 03/07/23 16:00 17:00 18:00 Temperature Pulse Rate 58 L Respiratory 15 11 L 15 Rate Blood Pressure 122/51 O2 Sat by Pulse Oximetry - Reevaluation(s) Reevaluation #1: 03/06/23 20:53 Medical record is reviewed Reevaluation #2: 03/06/23 20:54 Patient has no real improvement in symptoms here in the ER Reevaluation #3: 03/06/23 20:54 Patient informed results questions answered Reevaluation #4: 03/06/23 20:53 Was pt. sent in by a medical professional or institution (ARIANA Murcia, WEB PRESS OPERATOR ASSISTANT, urgent care, hospital, or penitentiary...) When possible be specific @ -no Did you speak to anyone other than the patient for history (EMS, parent, family, police, friend...)? What history was obtained from this source @ -no Did you review nursing and triage notes (agree or disagree)? Why? @ -agree Are old charts reviewed (outside hosp., previous admission, EMS record, old EKG, old radiological studies, urgent care reports/EKG's, penitentiary records)? Report findings @ -yes Differential Diagnosis (chest pain, altered mental status, abdominal pain women, abdominal pain men, vaginal bleeding, weakness, fever, dyspnea, syncope, headache, dizziness, GI bleed, back pain, seizure, CVA, palpatations, mental health, musculoskeletal)? @ -prior EKG interpreted by me (3pts min.). @ -yes X-rays interpreted by me (1pt min.). @ -no CT interpreted by me (1pt min.). @ -no U/S interpreted by me (1pt. min.). @ -no What testing was considered but not performed or refused? (CT, X-rays, U/S, labs )? Why? @ -none What meds were considered but not given or refused? Why? @ -none Did you discuss the management of the patient with other professionals (professionals i.e. ARIANA Murcia, WEB PRESS OPERATOR ASSISTANT, lab, RT, psych nurse, medical social consultant, cleaning custodian, teacher, vessel traffic officer, high risk case manager)? Give summary @ -no Was smoking cessation discussed for >3mins.? @ -no Was critical care preformed (if so, how long)? @ -yes31 Were there social determinants of health that impacted care today? How? (Homelessness, low income, unemployed, alcoholism, drug addiction, transportation, low edu. Level, literacy, decrease access to med. care, longterm, rehab)? @ -none Was there de-escalation of care discussed even if they declined (Discuss DNR or withdrawal of care, Hospice)? DNR status @ -no What co-morbidities impacted this encounter? (DM, HTN, Smoking, COPD, CAD, Cancer, CVA, ARF, Chemo, Hep., AIDS, mental health diagnosis, sleep apnea, morbid obesity)? @ -none Was patient admitted / discharged? Hospital course, mention meds given and route, prescriptions, significant lab abnormalities, going to OR and other pertinent info. @ - 67 male to the emergency department for evaluation today. To the emergency room today for evaluation of alcohol withdrawal, DTs, alcohol ketoacidosis and significant dehydration, patient is also suicidal and will admit for psychiatric evaluation Admitted Undiagnosed new problem with uncertain prognosis? @ -no Drug Therapy requiring intensive monitoring for toxicity (Heparin, Nitro, Ins ulin, Cardizem)? @ -no Were any procedures done? @ -no Diagnosis/symptom? @ -Alcohol ketoacidosis, alcohol intoxication dehydration Acute, or Chronic, or Acute on Chronic? @ -Acute Uncomplicated (without systemic symptoms) or Complicated (systemic symptoms)? @ -Complicated Side effects of treatment? @ -no Exacerbation, Progression, or Severe Exacerbation? @ -exacerbation Poses a threat to life or bodily function? How? (Chest pain, USA, SD, pneumonia, PE, COPD, DKA, ARF, appy, cholecystitis, CVA, Diverticulitis, Homicidal, Suicidal, threat to staff... and all critical care pts) @ -yes infection intoxication Reevaluation #5: 03/06/23 20:54 Differential Altered Mental Status: Hypoglycemia, DKA, hypercapnia, ETOH, overdose, CO poisoning, trauma, myxedema coma, HTN encephalopathy, infection, encephalitis, psychosis, intercranial hemorrhage, hepatic encephalopathy, meningitis, CVA, this is not meant to be an all-inclusive list - Consultations Consultation #1: Spoke with ESPERANZA gould to admit this patient Medical Decision Making - Medical Decision Making 67 male to the emergency department for evaluation today. To the emergency room today for evaluation of alcohol withdrawal, DTs, alcohol ketoacidosis and significant dehydration, patient is also suicidal and will admit for psychiatric evaluation - Lab Data Result diagrams: 03/08/23 06:23 03/08/23 06:23 Lab Results 03/06/23 03/06/23 03/06/23 Range/Units 17:39 17:39 17:39 WBC 10.3 (3.8-10.6) k/uL RBC 4.54 (4.30-5.90) m/uL Hgb 15.0 (13.0-17.5) gm/dL Hct 45.4 (39.0-53.0) % MCV 99.9 (80.0-100.0) fL MCH 33.0 (25.0-35.0) pg MCHC 33.0 (31.0-37.0) g/dL RDW 13.0 (11.5-15.5) % Plt Count 109 L (150-450) k/uL MPV 8.9 Neutrophils % 90 % Lymphocytes % 3 % Monocytes % 6 % Eosinophils % 0 % Basophils % 0 % Neutrophils # 9.4 H (1.3-7.7) k/uL Lymphocytes # 0.3 L (1.0-4.8) k/uL Monocytes # 0.6 (0-1.0) k/uL Eosinophils # 0.0 (0-0.7) k/uL Basophils # 0.0 (0-0.2) k/uL PT 10.6 (10.0-12.5) sec INR 1.0 (<1.2) APTT 22.0 (22.0-30.0) sec Sodium (137-145) mmol/L Potassium (3.5-5.1) mmol/L Chloride (98-107) mmol/L Carbon Dioxide (22-30) mmol/L Anion Gap mmol/L BUN (9-20) mg/dL Creatinine (0.66-1.25) mg/dL Est GFR (CKD-EPI)AfAm (>60 ml/min/1.73 sqM) Est GFR (CKD-EPI)NonAf (>60 ml/min/1.73 sqM) Glucose (74-99) mg/dL Lactic Ac Sepsis Rflx Plasma Lactic Acid Tee (0.7-2.0) mmol/L Calcium (8.4-10.2) mg/dL Phosphorus (2.5-4.5) mg/dL Magnesium (1.6-2.3) mg/dL Total Bilirubin (0.2-1.3) mg/dL AST (17-59) U/L ALT (4-49) U/L Alkaline Phosphatase (38-126) U/L Troponin I (0.000-0.034) ng/mL NT-Pro-B Natriuret Pep pg/mL Total Protein (6.3-8.2) g/dL Albumin (3.5-5.0) g/dL Lipase (23-300) U/L Urine Color Yellow Urine Appearance Clear (Clear) Urine pH 6.0 (5.0-8.0) Ur Specific [place] 1.030 (1.001-1.035) Urine Protein 2+ H (Negative) Urine Glucose (UA) Negative (Negative) Urine Ketones 2+ H (Negative) Urine Blood Moderate H (Negative) Urine Nitrite Negative (Negative) Urine Bilirubin Negative (Negative) Urine Urobilinogen 0.2 (<2.0) mg/dL Ur Leukocyte Esterase Negative (Negative) Urine RBC 1 (0-5) /hpf Urine WBC <1 (0-5) /hpf Hyaline Casts 12 H (0-2) /lpf Urine Mucus Occasional H (None) /hpf Serum Alcohol mg/dL 03/06/23 03/06/23 03/06/23 Range/Units 17:39 17:39 17:39 WBC (3.8-10.6) k/uL RBC (4.30-5.90) m/uL Hgb (13.0-17.5) gm/dL Hct (39.0-53.0) % MCV (80.0-100.0) fL MCH (25.0-35.0) pg MCHC (31.0-37.0) g/dL RDW (11.5-15.5) % Plt Count (150-450) k/uL MPV Neutrophils % % Lymphocytes % % Monocytes % % Eosinophils % % Basophils % % Neutrophils # (1.3-7.7) k/uL Lymphocytes # (1.0-4.8) k/uL Monocytes # (0-1.0) k/uL Eosinophils # (0-0.7) k/uL Basophils # (0-0.2) k/uL PT (10.0-12.5) sec INR (<1.2) APTT (22.0-30.0) sec Sodium 139 (137-145) mmol/L Potassium 4.2 (3.5-5.1) mmol/L Chloride 99 (98-107) mmol/L Carbon Dioxide 13 L (22-30) mmol/L Anion Gap 27 mmol/L BUN 17 (9-20) mg/dL Creatinine 0.67 (0.66-1.25) mg/dL Est GFR (CKD-EPI)AfAm >90 (>60 ml/min/1.73 sqM) Est GFR (CKD-EPI)NonAf >90 (>60 ml/min/1.73 sqM) Glucose 145 H (74-99) mg/dL Lactic Ac Sepsis Rflx Plasma Lactic Acid Tee 10.8 H* (0.7-2.0) mmol/L Calcium 9.0 (8.4-10.2) mg/dL Phosphorus 4.4 (2.5-4.5) mg/dL Magnesium 1.5 L (1.6-2.3) mg/dL Total Bilirubin 1.3 (0.2-1.3) mg/dL AST 105 H (17-59) U/L ALT 71 H (4-49) U/L Alkaline Phosphatase 80 (38-126) U/L Troponin I 0.012 (0.000-0.034) ng/mL NT-Pro-B Natriuret Pep 144 pg/mL Total Protein 7.6 (6.3-8.2) g/dL Albumin 4.8 (3.5-5.0) g/dL Lipase 50 (23-300) U/L Urine Color Urine Appearance (Clear) Urine pH (5.0-8.0) Ur Specific [place] (1.001-1.035) Urine Protein (Negative) Urine Glucose (UA) (Negative) Urine Ketones (Negative) Urine Blood (Negative) Urine Nitrite (Negative) Urine Bilirubin (Negative) Urine Urobilinogen (<2.0) mg/dL Ur Leukocyte Esterase (Negative) Urine RBC (0-5) /hpf Urine WBC (0-5) /hpf Hyaline Casts (0-2) /lpf Urine Mucus (None) /hpf Serum Alcohol <10 mg/dL 03/06/23 Range/Units 18:00 WBC (3.8-10.6) k/uL RBC (4.30-5.90) m/uL Hgb (13.0-17.5) gm/dL Hct (39.0-53.0) % MCV (80.0-100.0) fL MCH (25.0-35.0) pg MCHC (31.0-37.0) g/dL RDW (11.5-15.5) % Plt Count (150-450) k/uL MPV Neutrophils % % Lymphocytes % % Monocytes % % Eosinophils % % Basophils % % Neutrophils # (1.3-7.7) k/uL Lymphocytes # (1.0-4.8) k/uL Monocytes # (0-1.0) k/uL Eosinophils # (0-0.7) k/uL Basophils # (0-0.2) k/uL PT (10.0-12.5) sec INR (<1.2) APTT (22.0-30.0) sec Sodium (137-145) mmol/L Potassium (3.5-5.1) mmol/L Chloride (98-107) mmol/L Carbon Dioxide (22-30) mmol/L Anion Gap mmol/L BUN (9-20) mg/dL Creatinine (0.66-1.25) mg/dL Est GFR (CKD-EPI)AfAm (>60 ml/min/1.73 sqM) Est GFR (CKD-EPI)NonAf (>60 ml/min/1.73 sqM) Glucose (74-99) mg/dL Lactic Ac Sepsis Rflx Y Plasma Lactic Acid Tee (0.7-2.0) mmol/L Calcium (8.4-10.2) mg/dL Phosphorus (2.5-4.5) mg/dL Magnesium (1.6-2.3) mg/dL Total Bilirubin (0.2-1.3) mg/dL AST (17-59) U/L ALT (4-49) U/L Alkaline Phosphatase (38-126) U/L Troponin I (0.000-0.034) ng/mL NT-Pro-B Natriuret Pep pg/mL Total Protein (6.3-8.2) g/dL Albumin (3.5-5.0) g/dL Lipase (23-300) U/L Urine Color Urine Appearance (Clear) Urine pH (5.0-8.0) Ur Specific [place] (1.001-1.035) Urine Protein (Negative) Urine Glucose (UA) (Negative) Urine Ketones (Negative) Urine Blood (Negative) Urine Nitrite (Negative) Urine Bilirubin (Negative) Urine Urobilinogen (<2.0) mg/dL Ur Leukocyte Esterase (Negative) Urine RBC (0-5) /hpf Urine WBC (0-5) /hpf Hyaline Casts (0-2) /lpf Urine Mucus (None) /hpf Serum Alcohol mg/dL - EKG Data -: EKG Interpreted by Me (EKG is sinus 94 MO 130 QRS 102 QTC 409) Critical Care Time Critical Care Time: Yes Total Critical Care Time: 31 Disposition Clinical Impression: Depression, Suicidal ideation, Alcohol withdrawal syndrome, Alcoholic ketoacidosis, Lactic acidosis, Delirium tremens Disposition: ADMITTED IP TO THIS HOSP Condition: Fair Is patient prescribed a controlled substance at d/c from ED?: No Time of Disposition: 19:45
[2023-03-06 17:47] LABS: Basophils % (A) 0 %; Eosinophils % (A) 0 %; HCT 45.4 % (39.0-53.0); Lymphocytes # (A) 0.3 k/uL (1.0-4.8); Lymphocytes % (A) 3 %; MCV 99.9 fL (80.0-100.0); Mean Platelet Volume 8.9; Monocytes # (A) 0.6 k/uL (0-1.0); Monocytes % (A) 6 %; Neutrophils # (A) 9.4 k/uL (1.3-7.7); Neutrophils % (A) 90 %; Platelet Count 109 k/uL (150-450); RBC 4.54 m/uL (4.30-5.90); WBC 10.3 k/uL (3.8-10.6)
[2023-03-06] MEDS: LORazepam 2 MG/ML INJ IV PRN (17:57)
[2023-03-06 17:58] LABS: Prothrombin Time 10.6 sec (10.0-12.5)
[2023-03-06 17:59] LABS: ALT 71 U/L (4-49); AST 105 U/L (17-59); African American GFR (CKD) >90 (>60 ml/min/1.73 sqM); Albumin 4.8 g/dL (3.5-5.0); Alcohol <10 mg/dL; Alkaline Phosphatase 80 U/L (38-126); Anion Gap 27 mmol/L; Blood Urea Nitrogen 17 mg/dL (9-20); Carbon Dioxide 13 mmol/L (22-30); Chloride 99 mmol/L (98-107); Glucose 145 mg/dL (74-99); Lipase 50 U/L (23-300); Magnesium 1.5 mg/dL (1.6-2.3); Non-African American GFR(CKD) >90 (>60 ml/min/1.73 sqM); Phosphorus 4.4 mg/dL (2.5-4.5); Potassium 4.2 mmol/L (3.5-5.1); Sodium 139 mmol/L (137-145); Total Bilirubin 1.3 mg/dL (0.2-1.3); Total Protein 7.6 g/dL (6.3-8.2)
[2023-03-06 18:07] LABS: NT-Pro-B-Type Natriuretic Pept 144 pg/mL
[2023-03-06 18:56] LABS: Color,Urine Yellow; Hyaline Casts,Urine 12 /lpf (0-2); Mucus,Urine Occasional /hpf; RBC,Urine 1 /hpf (0-5); WBC,Urine <1 /hpf (0-5)
[2023-03-06 18:57] LABS: Appearance,Urine Clear (Clear); Bilirubin,Urine Negative (Negative); Blood,Urine Moderate (Negative); Glucose,Urine (UA) Negative (Negative); Ketones,Urine 2+ (Negative); Nitrite,Urine Negative (Negative); Protein,Urine 2+ (Negative); Urobilinogen,Urine 0.2 mg/dL (<2.0)
[2023-03-06 18:58] LABS: Leukocyte Esterase,Urine Negative (Negative)
[2023-03-06] MEDS ORDERED: ONDANSETRON 4 MG/2 ML VIAL IVP PRN (19:37)
[2023-03-06] MEDS ORDERED: NALOXONE 0.4 MG/ML 1 ML VIAL IV PRN (19:37)
[2023-03-06] MEDS: MORPHINE SULFATE 4 MG/ML SYRINGE IV PRN (23:59)
[2023-03-07 08:49] LABS: ALT 65 U/L (4-49); AST 122 U/L (17-59); African American GFR (CKD) >90 (>60 ml/min/1.73 sqM); Albumin 3.8 g/dL (3.5-5.0); Alkaline Phosphatase 66 U/L (38-126); Anion Gap 11 mmol/L; Blood Urea Nitrogen 13 mg/dL (9-20); Calcium 8.7 mg/dL (8.4-10.2); Carbon Dioxide 28 mmol/L (22-30); Chloride 99 mmol/L (98-107); Glucose 76 mg/dL (74-99); Magnesium 1.6 mg/dL (1.6-2.3); Non-African American GFR(CKD) >90 (>60 ml/min/1.73 sqM); Phosphorus 2.8 mg/dL (2.5-4.5); Potassium 4.3 mmol/L (3.5-5.1); Sodium 138 mmol/L (137-145); Total Bilirubin 1.5 mg/dL (0.2-1.3); Total Protein 6.4 g/dL (6.3-8.2)
[2023-03-07 08:55] LABS: HCT 39.7 % (39.0-53.0); HGB 13.2 gm/dL (13.0-17.5); MCH 33.6 pg (25.0-35.0); MCHC 33.4 g/dL (31.0-37.0); MCV 100.7 fL (80.0-100.0); Mean Platelet Volume 8.9; RBC 3.94 m/uL (4.30-5.90); RDW 12.9 % (11.5-15.5); WBC 7.3 k/uL (3.8-10.6)
[2023-03-07] MEDS ORDERED: THIAMINE 100 MG TAB PO SCH (09:00)
[2023-03-07] MEDS ORDERED: NALOXONE 0.4 MG/ML 1 ML VIAL IV PRN (09:44)
[2023-03-07] MEDS ORDERED: ACETAMINOPHEN TAB 325 MG TAB PO PRN (09:44)
[2023-03-07] MEDS ORDERED: MAG HYDROX/AL HYDROX/SIMETH 30 ML CUP PO PRN (09:44)
[2023-03-07] MEDS ORDERED: MELATONIN 3 MG TABLET PO PRN (09:44)
[2023-03-07] MEDS: FLUoxetine HCL 10 MG CAP PO SCH (10:21)
[2023-03-07] MEDS: busPIRone HCl 10 MG TAB PO SCH ×2 (10:21→21:55)
[2023-03-07 10:34] LABS: Platelet Count 98 k/uL (150-450)
[2023-03-07 10:42] LABS: Band Neutrophils % 1 %; Lymphocytes # (M) 0.95 k/uL (1.0-4.8); Monocytes # (M) 0.29 k/uL (0-1.0); Neutrophils % (M) 82 %; Nucleated Red Blood Cells 0 /100 WBC (0-0); Total Cells Counted 100
--- NOTE | 2023-03-07 11:58 | P.HPIM ---
History of Present Illness H&P Date: 03/07/23 History of present illness; patient is a 67-year-old gentleman with past medica l history significant for alcohol abuse, COPD, tobacco addiction presented to the hospital for alcohol detox. Patient has been admitted in the hospital in the past with similar presentation and has undergone alcohol detox. Patient states that ever since his he has been taking a lot. Patient admits to drinking one fifth a day. Patient lives alone. Patient had mentioned to his cousin that he is very lonely and he wants to end his life. patient is very shaky and irritable. Patient last drink was 5 days ago. Patient is very unsteady. Denies any homicidal thoughts. Denies any auditory or visual hallucinations. Because of the symptoms, patient was brought to the ER . Initial lab work done in the ER showed WBC 10.3, hemoglobin 15, platelet count 109, sodium 139, potassium 4.2, BUNs 70 noted in 0.67, lactate 10.8, AST 105, AST 71, EKG done in the ER showed normal sinus rhythm, no acute ST segment elevation or T-wave inversions patient admitted to medicine service REVIEW OF SYSTEMS: CONSTITUTIONAL: No fever, no malaise, no fatigue. HEENT: No recent visual problems or hearing problems. Denied any sore throat. CARDIOVASCULAR: No chest pain, orthopnea, PND, no palpitations, no syncope. PULMONARY: No shortness of breath, no cough, no hemoptysis. GASTROINTESTINAL: No diarrhea, no nausea, no vomiting, no abdominal pain. NEUROLOGICAL: No headaches, no weakness, no numbness. HEMATOLOGICAL: Denies any bleeding or petechiae. GENITOURINARY: Denies any burning micturition, frequency, or urgency. MUSCULOSKELETAL/RHEUMATOLOGICAL: Denies any joint pain, swelling, or any muscle pain. ENDOCRINE: Denies any polyuria or polydipsia. The rest of the 14-point review of systems is negative. PHYSICAL EXAMINATION: GENERAL: The patient is alert and oriented x3, not in any acute distress. Shaky HEENT: Pupils are round and equally reacting to light. EOMI. No scleral icterus. No conjunctival pallor. Normocephalic, atraumatic. No pharyngeal erythema. No thyromegaly. CARDIOVASCULAR: S1 and S2 present. No murmurs, rubs, or gallops. PULMONARY: Chest is clear to auscultation, no wheezing or crackles. ABDOMEN: Soft, nontender, nondistended, normoactive bowel sounds. No palpable organomegaly. MUSCULOSKELETAL: No joint swelling or deformity. EXTREMITIES: No cyanosis, clubbing, or pedal edema. NEUROLOGICAL: Gross neurological examination did not reveal any focal deficits. SKIN: No rashes. Assessment and plan Acute metabolic encephalopathy Alcohol abuse Alcohol detox Lactic acidosis Acute transaminitis Suicidal ideations COPD Chronic nicotine dependence, Thrombocytopenia Monitor vital signs Monitor CBC Monitor CMP Continue telemetry monitoring Continue CIWA protocol Continue high dose thiamine folic Continue IV fluids and given antiemetics Elopement precautions Suicide precautions Psychiatry consulted Labs and medication were reviewed.. Continue same treatment. Continue with symptomatic treatment. Resume home medication. Monitor labs and vitals. DVT and GI prophylaxis. Further recommendations as per clinical course of the patient Dictation was produced using [employer] dictation software. please excuse any grammatical, word or spelling errors. Past Medical History Past Medical History: COPD History of Any Multi-Drug Resistant Organisms: None Reported Additional Past Surgical History / Comment(s): retina surgery Past Anesthesia/Blood Transfusion Reactions: No Reported Reaction Past Psychological History: Anxiety Smoking Status: Current every day smoker Past Alcohol Use History: Daily Past Drug Use History: Marijuana - Past Family History Father Additional Family Medical History / Comment(s): alzheimers Medications and Allergies Home Medications Medication Instructions Recorded Confirmed Type EPINEPHrine [Primatene Mist] 1 puff INHALATION RT-QID PRN 03/06/23 03/06/23 History FLUoxetine HCL [PROzac] 10 mg PO DAILY 03/06/23 03/06/23 History Ibuprofen [Motrin] 600 mg PO DAILY 03/06/23 03/06/23 History busPIRone HCl [Buspar] 10 mg PO BID 03/06/23 03/06/23 History Allergies Allergy/AdvReac Type Severity Reaction Status Date / Time No Known Allergies Allergy Verified 03/06/23 18:48 Physical Exam Vitals: Vital Signs Temp Pulse Resp BP Pulse Ox 03/07/23 08:00 82 18 110/73 96 03/07/23 06:17 98.0 F 65 17 131/82 97 03/07/23 04:54 68 17 143/84 03/07/23 02:36 68 18 146/87 03/07/23 01:06 71 17 151/90 03/06/23 23:58 77 19 153/93 98 03/06/23 21:26 89 17 147/83 03/06/23 18:44 98 18 146/85 97 03/06/23 17:06 97.7 F 96 20 169/88 98 Intake and Output 03/06/23 03/07/23 03/07/23 22:59 06:59 14:59 Other: Weight 68.492 kg Results CBC & Chem 7: 03/07/23 08:00 03/07/23 08:00 Labs: Abnormal Lab Results - Last 24 Hours (Table) 03/06/23 03/06/23 03/06/23 Range/Units 17:39 17:39 17:39 RBC (4.30-5.90) m/uL MCV (80.0-100.0) fL Plt Count 109 L (150-450) k/uL Neutrophils # 9.4 H (1.3-7.7) k/uL Lymphocytes # 0.3 L (1.0-4.8) k/uL Carbon Dioxide 13 L (22-30) mmol/L Creatinine (0.66-1.25) mg/dL Glucose 145 H (74-99) mg/dL Plasma Lactic Acid Tee (0.7-2.0) mmol/L Magnesium 1.5 L (1.6-2.3) mg/dL Total Bilirubin (0.2-1.3) mg/dL AST 105 H (17-59) U/L ALT 71 H (4-49) U/L Urine Protein 2+ H (Negative) Urine Ketones 2+ H (Negative) Urine Blood Moderate H (Negative) Hyaline Casts 12 H (0-2) /lpf Urine Mucus Occasional H (None) /hpf 03/06/23 03/07/23 03/07/23 Range/Units 17:39 08:00 08:00 RBC 3.94 L (4.30-5.90) m/uL MCV 100.7 H (80.0-100.0) fL Plt Count 98 L (150-450) k/uL Neutrophils # (1.3-7.7) k/uL Lymphocytes # (1.0-4.8) k/uL Carbon Dioxide (22-30) mmol/L Creatinine 0.64 L (0.66-1.25) mg/dL Glucose (74-99) mg/dL Plasma Lactic Acid Tee 10.8 H* (0.7-2.0) mmol/L Magnesium (1.6-2.3) mg/dL Total Bilirubin 1.5 H (0.2-1.3) mg/dL AST 122 H (17-59) U/L ALT 65 H (4-49) U/L Urine Protein (Negative) Urine Ketones (Negative) Urine Blood (Negative) Hyaline Casts (0-2) /lpf Urine Mucus (None) /hpf
[2023-03-07] MEDS: MORPHINE SULFATE 4 MG/ML SYRINGE IV PRN (13:43)
[2023-03-07] MEDS: THIAMINE 100 MG TAB PO SCH ×2 (15:34→21:53)
[2023-03-08] MEDS: MORPHINE SULFATE 4 MG/ML SYRINGE IV PRN (05:59)
[2023-03-08] MEDS: ENOXAPARIN 40 MG/0.4 ML SYRINGE SQ SCH (08:29)
[2023-03-08] MEDS: THIAMINE 100 MG TAB PO SCH ×3 (08:29→20:48)
[2023-03-08] MEDS: busPIRone HCl 10 MG TAB PO SCH ×3 (08:29→20:48)
[2023-03-08] MEDS: FLUoxetine HCL 10 MG CAP PO SCH (08:30)
[2023-03-08 11:18] LABS: ALT 77 U/L (10-49); AST 139 U/L (14-35); Albumin 3.7 g/dL (3.8-4.9); Albumin/Globulin Ratio 1.76 Ratio (1.60-3.17); Alkaline Phosphatase 66 U/L (41-126); Blood Urea Nitrogen 8.3 mg/dL (9.0-27.0); Calcium 8.9 mg/dL (8.7-10.3); Carbon Dioxide 25.3 mmol/L (21.6-31.8); Chloride 96 mmol/L (96-109); Globulin 2.1 g/dL (1.6-3.3); Glucose 107 mg/dL (70-110); Potassium 3.6 mmol/L (3.5-5.5); Sodium 134 mmol/L (135-145); Total Bilirubin 0.7 mg/dL (0.3-1.2); Total Protein 5.8 g/dL (6.2-8.2)
[2023-03-08 12:10] LABS: Basophils # (A) 0.02 X 10*3/uL (0.00-0.10); Basophils % (A) 0.3 %; Eosinophils # (A) 0.03 X 10*3/uL (0.04-0.35); Eosinophils % (A) 0.5 %; HCT 37.6 % (39.6-50.0); Immature Platelet Fraction 12.2 % (1.1-6.1); Lymphocytes # (A) 0.94 X 10*3/uL (0.90-5.00); Lymphocytes % (A) 15.9 %; MCH 33.1 pg (27.0-32.0); MCHC 34.6 g/dL (32.0-37.0); MCV 95.7 FL (80.0-97.0); Mean Platelet Volume 11.4 FL (9.5-12.2); Monocytes # (A) 0.66 X 10*3/uL (0.20-1.00); Monocytes % (A) 11.2 %; NRBC Per 100 WBC 0 X 10*3/uL (0.00-0.01); Neutrophils # (A) 4.24 X 10*3/uL (1.80-7.70); Neutrophils % (A) 71.8 %; Platelet Count 79 X 10*3/uL (140-440); RBC 3.93 X 10*6/uL (4.40-5.60); RBC Morphology Normal (Normal); RDW 12.9 % (11.5-14.5); WBC 5.91 X 10*3/uL (4.50-10.00)
[2023-03-08 12:22] VITALS: BMI 19.1
--- NOTE | 2023-03-08 13:14 | P.PN ---
Subjective Progress Note Date: 03/08/23 patient is a 67-year-old gentleman with past medical history significant for alcohol abuse, COPD, tobacco addiction presented to the hospital for alcohol detox. Patient has been admitted in the hospital in the past with similar presentation and has undergone alcohol detox. Patient states that ever since his he has been taking a lot. Patient admits to drinking one fifth a day. Patient lives alone. Patient had mentioned to his cousin that he is very lonely and he wants to end his life. patient is very shaky and irritable. Patient last drink was 5 days ago. Patient is very unsteady. Denies any homicidal thoughts. Denies any auditory or visual hallucinations. Because of the symptoms, patient was brought to the ER . Initial lab work done in the ER showed WBC 10.3, hemoglobin 15, platelet count 109, sodium 139, potassium 4.2, BUNs 70 noted in 0.67, lactate 10.8, AST 105, AST 71, EKG done in the ER showed normal sinus rhythm, no acute ST segment elevation or T-wave inversions patient admitted to medicine service 02/26. Patient seen and examined. Complaining of left foot pain. Denies any numbness. Denies any slurred speech. Denies any homicidal or suicidal thoughts today. REVIEW OF SYSTEMS: CONSTITUTIONAL: No fever, no malaise,. CARDIOVASCULAR: No chest pain, no palpitations, no syncope. PULMONARY: No shortness of breath, no cough, GASTROINTESTINAL: No diarrhea, no nausea, no vomiting, no abdominal pain. NEUROLOGICAL: No headaches, no weakness, PHYSICAL EXAMINATION: GENERAL: The patient is alert and oriented x3, not in any acute distress. Chronically ill-looking. HEENT: Pupils are round and equally reacting to light. EOMI. No scleral icterus. No conjunctival pallor. Normocephalic, atraumatic. No pharyngeal erythema. No thyromegaly. CARDIOVASCULAR: S1 and S2 present. No murmurs, rubs, or gallops. PULMONARY: Chest is clear to auscultation, no wheezing or crackles. ABDOMEN: Soft, nontender, nondistended, normoactive bowel sounds. No palpable organomegaly. MUSCULOSKELETAL: No joint swelling or deformity. EXTREMITIES: No cyanosis, clubbing, or pedal edema. NEUROLOGICAL: Gross neurological examination did not reveal any focal deficits. SKIN: No rashes. Assessment and plan Acute metabolic encephalopathy Alcohol abuse Alcohol detox Lactic acidosis Acute transaminitis Suicidal ideations COPD Chronic nicotine dependence, Thrombocytopenia Monitor vital signs Monitor CBC Monitor CMP Continue telemetry monitoring Continue CIWA protocol Continue high dose thiamine folic DC fluids Elopement precautions Suicide precautions X-ray of left foot ordered Psych consulted Labs and medication were reviewed.. Continue same treatment. Continue with symptomatic treatment. Resume home medication. Monitor labs and vitals. DVT and GI prophylaxis. Further recommendations as per clinical course of the patient Dictation was produced using [employer] dictation software. please excuse any grammatical, word or spelling errors. Objective - Vital Signs Vital signs: Vital Signs Temp 98.0 F 03/08/23 07:26 Pulse 61 03/08/23 07:26 Resp 19 03/08/23 07:26 BP 159/88 03/08/23 07:26 Pulse Ox 95 03/08/23 07:26 FiO2 Intake & Output 03/07/23 03/08/23 03/08/23 18:59 06:59 18:59 Weight 64 kg 64 kg Other: # Voids 2 - Labs CBC & Chem 7: 03/08/23 06:23 03/08/23 06:23 Labs: Abnormal Lab Results - Last 24 Hours (Table) 03/08/23 03/08/23 Range/Units 06:23 06:23 RBC 3.93 L (4.40-5.60) X 10*6/uL Hct 37.6 L (39.6-50.0) % MCH 33.1 H (27.0-32.0) pg Plt Count 79 L (140-440) X 10*3/uL Eosinophils # 0.03 L (0.04-0.35) X 10*3/uL Immature Plt Fraction 12.2 H (1.1-6.1) % Sodium 134 L (135-145) mmol/L Anion Gap 12.70 H (4.00-12.00) mmol/L BUN 8.3 L (9.0-27.0) mg/dL Creatinine 0.5 L (0.6-1.5) mg/dL AST 139 H (14-35) U/L ALT 77 H (10-49) U/L Total Protein 5.8 L (6.2-8.2) g/dL Albumin 3.7 L (3.8-4.9) g/dL
--- NOTE | 2023-03-08 13:50 | XR ---
EXAMINATION TYPE: XR foot complete LT DATE OF EXAM: 03/08/2023 COMPARISON: None HISTORY: Pain TECHNIQUE: Three views are submitted. FINDINGS: Diffuse osteopenia with hallux valgus deformity first digit and mild first MTP joint hypertrophic art hropathy. Deformities and postsurgical change suggestive of remote trauma involving the second and fi fth metatarsals. Hammertoe deformities are seen there is mild DIP joint arthropathy of the second thr ough fifth digits. No erosive changes. IMPRESSION: 1. Diffuse osteopenia with a small plantar calcaneal spur. 2. Left first MTP and second through fifth digit DIP mild arthropathy. No erosive changes. 3. Postsurgical changes.
--- NOTE | 2023-03-08 15:23 | CDI ---
Documentation Clarification Form Date: 03/08/2023 02:58:08 PM From: Chelo Mata RN CCDS Phone: [phone] Admit Date: 03/06/2023 07:38:00 PM Patient Name: Noe López Visit Number: [id number] Discharge Date: ATTENTION: The Clinical Documentation Specialists (CDI) and [facility] Coding Staff appreciate your assistance in clarifying documentation. Please respond to the clarification below the line at the bottom and electronically sign. The CDI & [facility] Coding staff will review the response and follow-up if needed. Please note: Queries are made part of the Legal Health Record. If you have any questions, please contact the author of this message via ITS. Dr. Carlo Bermudez Patient has a documented BMI of 19.1kg, Nutritional consult. Additional clarification is requested. History/Risk Factors: 67-year-old male presents to the ED after mentioning to family suicidal thoughts as well as unwell and shaky. The patients last alcoholic drink was 3 days ago.Medical history: Alcohol abuse, prior detox, COPD, chronic nicotine dependence, his and patient states he drinks a 5th a day. 03/08, ED note. Clinical Indicators: Patients weight is: 64kg Patients height is: 6ft Calculated BMI is: 19.1kg Physical appearance: Underweight, no wounds skin lesions Estimated Nutritional needs: Energy needs in Kcal 1600- 1920 Protein needs 51-64 grams /day Suboptimal energy intake related to ETOH abuse, evidenced by ETOH detox Treatments: General healthful diet, Ensure compact BID Nutritional Education Dietary Consult above Please clarify, is there is an additional diagnosis that is clinically appropriate for this patient? [ ] Mild Malnutrition, [ x] Moderate Malnutrition [ ] Severe Malnutrition [ ] Other, please specify [ ] Unable to determine In responding to this query, please exercise your independent professional judgment. The [facility] Coding Staff and Clinical Documentation Specialists appreciate your assistance in clarifying documentation, maintaining compliance with coding guidelines, accurately documenting patients condition and capturing severity of illness. The fact that a question is asked does not imply that any particular answer is desired or expected. Communication forms are a method of clarifying documentation and are made part of the Legal Health Record. Thank you in advance for your clarification. Last Reviewed September 2022 Reference: Using the ASPEN Guidelines, Undernutrition (Malnutrition) is characterized by at least two of the following six findings. The severity can be determined based on the criteria listed below. Malnutrition Characteristics for Moderate and Severe Malnutrition Type of Malnutrition Acute Illness or Injury Chronic Illness Degree of Malnutrition Non-severe (moderate) Malnutrition Severe Malnutrition Non-severe (moderate) Malnutrition Severe Malnutrition Energy Intake <75% for >7 days = 50% for = 5 days <75% for = 1 month =75% for = 1 month Weight Loss 1-2% in one week, 5% in 1 month, 7.5% in 3 months 2% in one week, >5% in 1 month, >7.5% in 3 months 5% in one month, 7.5% in 3 months, 10% in 6 months, 20% in 1 year >5% in one month, >7.5% in 3 months, >10% in 6 months, >20% in 1 year Body Fat Wasting Mild Moderate Mild Severe Muscle Wasting Mild Moderate Mild Severe Presence of Edema Mild Moderate to Severe Mild Severe Enforcement Officer Strength Not applicable Measurably Reduced Not applicable Measurably Reduced Source: Uma GrimmV, Sonia P, Bautista G, et al. Consensus statement: Academy of Nutrition and Dietetics and [place] Society for Parenteral and Enteral Nutrition: characteristics recommended for the identification and documentation of adult malnutrition (undernutrition).JPEN J Parenter Enteral Nutr. 2012;36(3):275-283. (Template Last Revised: April 2020) MTDD
--- NOTE | 2023-03-08 15:53 | P.CN ---
Psychiatric Consult - . Consult date: 03/08/23 Consult:: 03/08/23 14:02 IDENTIFYING DATA: This patient is a 67-year-old male he currently lives alone in a house, he is , he is 2 kids. REASON FOR REFERRAL: Psychiatry was consulted for depression and suicidal ideations HISTORY OF PRESENT ILLNESS: The patient presented to the hospital on 03/06 for altered mental status, alcohol use was about 3 days prior to coming into the hospital. Patient apparently was endorsing suicidal ideations at that time in the ER. LFTs were mildly elevated. Blood alcohol level was negative. Patient apparently was endorsing some depression, going through alcohol withdrawals. Patient's nurse claims that patient is doing better today, fairly cooperative, denies ever having any suicidal thoughts. Patient's ciwa scores were 0. Patient claims that he stopped drinking immediately and went into detox. He claims that he is having bad neuropathy in his feet and believed that he was having a stroke therefore came to the hospital. Claims that he was shaky. States that he is doing better now with regard to his withdrawals. He states that his girlfriend left him about 3 months ago which was hard for him to deal with. States that he is currently dating someone else now. States that he just started taking antidepressant medications and anxiety meds from his family doctor. States that he his neighbor called the ambulance for him due to with her withdrawals, states that his mood is better now, states that he recently relapsed back on vodka a few weeks ago. States that he's been drinking about a gallon a day of vodka. He is denying any hallucinations at this time. He claims that he is future oriented. Claims that he does have guns at home and claims that they are locked in a safe. Claims that his sleep has been on and off, appetite has been fair. At this time patient denies any suicidal or homical ideations, intent or plan. Patient denies any auditory, visual hallucinations and denies any paranoia or delusions. Patients admits to using alcohol as noted above, states that his been in rehab twice in the past. Last drink was about 4 days ago. Claims that he does smoke cigarettes. Pigment Pusher spoke with patients daughter Miguel Ángel over the phone at [phone] who states that patient has a long hx of etoh abuse and depression. apparently patient sent her a photo of him with a gun to his head. She states that her father's cousin took away one of the guns from the home however she believes that there might be more guns in the home in a safe. We spoke about patient's high risk and the need for police to be involved to have the rest of the guns removed from the house and she is agreeable to this and will call the police and report this today and continue to update machine sign writer on the situation. PAST PSYCHIATRIC HISTORY: Patient has a a history of depression, alcohol abuse. Patient is currently on Prozac and BuSpar as well. Patient denies any previous psychiatric hospitalizations. Patient denies any psychiatric outpatient follow- up. Patient denies any history of suicide attempts in the past. Past Medical History: COPD History of Any Multi-Drug Resistant Organisms: None Reported Additional Past Surgical History / Comment(s): retina surgery Past Anesthesia/Blood Transfusion Reactions: No Reported Reaction Past Psychological History: Anxiety Smoking Status: Current every day smoker Past Alcohol Use History: Daily Past Drug Use History: Marijuana ALLERGIES: as per EMR. CHEMICAL DEPENDENCY HISTORY: as per HPI. FAMILY PSYCHIATRIC/SUBSTANCE USE HISTORY: denies SOCIAL HISTORY: Patient was born and raised in [place] and now currently lives in [facility]. He states that he completed some college after high school. States that he has 2 daughters. He is currently . He lives alone in a house. He apparently was arrested and served time for a DUI about 6 years ago. MENTAL STATUS EXAM: General Appearance: Patient appears to be thin, balding, stated age is alert, pleasant, and cooperative. Patient appears to have fair hygiene and grooming wearing hospital gown with poor eye contact. Behavior: Patient is calmly lying in bed without any agitated behavior. Superficial at times Speech: Patient's speech is fluent and nonpressured. Talkative Mood/Affect: Patient reports their mood is "better now", affect is congruent Suicidality/Homicidality: Patient denies having any suicidal or homicidal ideation intent or plan. Perceptions: Patient denies any visual hallucinations and denies any auditory hallucinations Though content/process: There is no evidence of any delusional thought content and thought process is linear and goal-directed. More future oriented Memory and concentration: AOX3, grossly intact for the purposes of this session. Can spell "WORLD" backwards Judgment and insight: poor IMPRESSIONS: Depressive disorder unspecified Alcohol use disorder severe dependence Nicotine dependence PLAN: -At this time patient DOES NOT meet criteria for inpatient psychiatric admission, however due to patient being fairly high risk for potential self-harm due to his drinking, age and also marital status and psychiatric symptomology, we'll continue to follow along and possibly admit patient to mental health unit if patient does meet criteria at a later time. -Pigment Pusher spoke with patient and daughter Miguel Ángel over the phone as noted above, plan will be for her to contact police to have rest of the guns removed from the house -Would recommend the following medication changes/additions: BuSpar increased to 20 mg 3 times a day for anxiety, Zoloft 50 mg daily for mood/anxiety, trazodone 50 mg daily at bedtime for mood/insomnia. Continue with tapering diazepam for withdrawal symptoms. At this time patient is declining any anti-craving medications for alcohol use. -CIWA protocol with PRN Ativan for alcohol withdrawal. Continue to monitor vital signs. -Can discontinue 1:1 sitter at this time as patient is not currently an imminent threat to themselves -Cannot leave AMA at this time. Patient will need a petition and certification if attempting to leave AMA. -Pigment Pusher spoke with patient about substance abuse and the harmful effects on medical and mental health, patient verbally understood and agreed. -woodworker helper to provide patient substance use treatment resources including AA/NA meetings in the community. -woodworker helper to provide patient with access line number to call for inpatient substance rehab -Communicated plan to patient's nurse -Will continue to follow along -Please contact with any questions. 03/08/23 14:03 03/08/23 15:34
[2023-03-08] MEDS: SERTRALINE 50 MG TAB PO SCH (16:22)
[2023-03-08] MEDS: traZODone HCL 50 MG TAB PO SCH (20:48)
[2023-03-09] MEDS: LORazepam 2 MG/ML INJ IV PRN (05:45)
[2023-03-09 07:55] VITALS: RESP 16
[2023-03-09] MEDS: busPIRone HCl 10 MG TAB PO SCH ×3 (09:31→21:52)
[2023-03-09] MEDS: ENOXAPARIN 40 MG/0.4 ML SYRINGE SQ SCH (09:31)
[2023-03-09] MEDS: SERTRALINE 50 MG TAB PO SCH (09:31)
[2023-03-09] MEDS: THIAMINE 100 MG TAB PO SCH ×3 (09:31→21:52)
--- NOTE | 2023-03-09 14:39 | P.DS ---
Providers Date of admission: 03/06/23 19:38 Expected date of discharge: 03/09/23 Attending physician: Donna Albarado Consults: 03/06/23 19:37 Consult Physician Routine Consulting Provider: Zhao Borges Consult Reason/Comments: depressionSI Do you want consulting provider notified?: Already Contacted [facility] care [facility] Course: Discharge diagnoses; Acute metabolic encephalopathy Alcohol abuse Alcohol detox Lactic acidosis Acute transaminitis Suicidal ideations COPD Chronic nicotine dependence, Thrombocytopenia Hospital course; patient is a 67-year-old gentleman with past medical history significant for alcohol abuse, COPD, tobacco addiction presented to the hospital for alcohol detox. Patient has been admitted in the hospital in the past with similar presentation and has undergone alcohol detox. Patient states that ever since his he has been taking a lot. Patient admits to drinking one fifth a day. Patient lives alone. Patient had mentioned to his cousin that he is very lonely and he wants to end his life. patient is very shaky and irritable. Patient last drink was 5 days ago. Patient is very unsteady. Denies any homicidal thoughts. Denies any auditory or visual hallucinations. Because of the symptoms, patient was brought to the ER . Initial lab work done in the ER showed WBC 10.3, hemoglobin 15, platelet count 109, sodium 139, potassium 4.2, BUNs 70 noted in 0.67, lactate 10.8, AST 105, AST 71, EKG done in the ER showed normal sinus rhythm, no acute ST segment elevation or T-wave inversions patient admitted to medicine service 02/26. Patient seen and examined. Complaining of left foot pain. Denies any numbness. Denies any slurred speech. Denies any homicidal or suicidal thoughts today. 03/09. Patient seen and examined. Psych eval the patient recommended following medication changes ;BuSpar increased to 20 mg 3 times a day for anxiety, Zoloft 50 mg daily for mood/anxiety, trazodone 50 mg daily at bedtime for mood/insomnia. Psychiatric recommended inpatient psych admission once medically cleared. Patient medically stable for discharge to inpatient psych. PHYSICAL EXAMINATION: GENERAL: The patient is alert and oriented x3, not in any acute distress. Well developed, well nourished. HEENT: Pupils are round and equally reacting to light. EOMI. No scleral icterus. No conjunctival pallor. Normocephalic, atraumatic. No pharyngeal erythema. No thyromegaly. CARDIOVASCULAR: S1 and S2 present. No murmurs, rubs, or gallops. PULMONARY: Chest is clear to auscultation, no wheezing or crackles. ABDOMEN: Soft, nontender, nondistended, normoactive bowel sounds. No palpable organomegaly. MUSCULOSKELETAL: No joint swelling or deformity. EXTREMITIES: No cyanosis, clubbing, or pedal edema. NEUROLOGICAL: Gross neurological examination did not reveal any focal deficits. SKIN: No rashes. Dictation was produced using [employer] dictation software. please excuse any grammatical, word or spelling errors. Patient Condition at Discharge: Fair Plan - Discharge Summary Discharge Rx Participant: Yes New Discharge Prescriptions: New busPIRone HCl [Buspar] 20 mg PO TID tab traZODone HCL [Desyrel] 50 mg PO HS tab Thiamine [Vitamin B-1] 100 mg PO DAILY tab Sertraline [Zoloft] 50 mg PO DAILY tab Continue EPINEPHrine [Primatene Mist] 1 puff INHALATION RT-QID PRN PRN Reason: Shortness Of Breath Ibuprofen [Motrin] 600 mg PO DAILY Discontinued busPIRone HCl [Buspar] 10 mg PO BID FLUoxetine HCL [PROzac] 10 mg PO DAILY Discharge Medication List EPINEPHrine [Primatene Mist] 1 puff INHALATION RT-QID PRN 03/06/23 [History] Ibuprofen [Motrin] 600 mg PO DAILY 03/06/23 [History] Sertraline [Zoloft] 50 mg PO DAILY tab 03/09/23 [Rx] Thiamine [Vitamin B-1] 100 mg PO DAILY tab 03/09/23 [Rx] busPIRone HCl [Buspar] 20 mg PO TID tab 03/09/23 [Rx] traZODone HCL [Desyrel] 50 mg PO HS tab 03/09/23 [Rx] Follow up Appointment(s)/Referral(s): Moiz Goldstein MD [Primary Care Provider] - 1-2 days Discharge/Stand Alone Forms: AA Meetings [place], Outpatient Counseling, In Substance Abuse Facilities Discharge Disposition: TRANSFER TO PSYCH HOSP/UNIT
[2023-03-09 15:35] VITALS: BP 164/96; PULSE 97; TEMP 98.2
--- NOTE | 2023-03-09 15:49 | P.PN ---
Progress Note - Text Progress Note Date: 03/09/23 Interval History: Patient was seen on the medical floor and was directable and agreeable to speak with script writer in patients room. Was seen today for follow up. Patient was petitioned by his daughter on 03/08. The petition "he threatened to shoot himself and sent a picture of the gun to his head saying that would be the last picture of him" . Patient minimizes need for treatment and states that he needs to get back home to fill out paperwork and to see his dogs. 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 Cosmetic Consultant communicated the need for treatment to patient stating he could be a fatal mistake if he was to be discharged from the hospital without receiving proper treatment. Cosmetic Consultant also explained to the patient that he would be admitted to the mental health unit at some point. He was fairly superficial, manipulative. At this time patient denies any suicidal or homical ideations, intent or plan. Patient denies any auditory, visual hallucinations and denies any paranoia or delusions. Patient denies any side effects from the medications and has been compliant with meds. Mental Status Exam: General Appearance: Patient appears to be thin, balding, stated age is alert, pleasant, and cooperative. Patient appears to have fair hygiene and grooming wearing hospital gown with poor eye contact. Behavior: Patient is calmly lying in bed without any agitated behavior. Superficial at times Speech: Patient's speech is fluent and nonpressured. Talkative Mood/Affect: Patient reports their mood is "marvelous", affect is congruent Suicidality/Homicidality: Patient denies having any suicidal or homicidal ideation intent or plan. Perceptions: Patient denies any visual hallucinations and denies any auditory hallucinations Though content/process: There is no evidence of any delusional thought content and thought process is linear and goal-directed. More future oriented, manipulative Memory and concentration: AOX3, grossly intact for the purposes of this session. Judgment and insight: poor/impulsive IMPRESSIONS: Depressive disorder unspecified Alcohol use disorder severe dependence Nicotine dependence PLAN: -At this time patient DOES meet criteria for inpatient psychiatric admission, due to patient being fairly high risk for potential self-harm due to his drinking, age and also marital status and psychiatric symptomology -Cosmetic Consultant spoke with patient and daughter Miguel Ángel the daughter over the phone as noted above, plan will be for her to contact police to have rest of the guns removed from the house -Would recommend the following medication changes/additions: BuSpar 20 mg 3 times a day for anxiety, Zoloft 50 mg daily for mood/anxiety, trazodone 50 mg daily at bedtime for mood/insomnia. Continue with tapering diazepam for withdrawal symptoms. At this time patient is declining any anti-craving medications for alcohol use. -CIWA protocol with PRN Ativan for alcohol withdrawal. Continue to monitor vital signs. -Cannot leave AMA at this time. Patient will need a petition and certification if attempting to leave AMA. Patient's daughter petitioned the patient -Communicated plan to patient's nurse and hospitalist -at this time psychiatry will sign off. Patient is to remian on 1:1 sitter for safety until transferred to the MHU. -Please contact with any questions.
[2023-03-09] MEDS: traZODone HCL 50 MG TAB PO SCH (20:15)
[2023-03-10] MEDS ORDERED: THIAMINE 100 MG TAB PO SCH (09:00)
--- NOTE | 2023-03-21 06:35 | CDI ---
Documentation Clarification Form Date: 03/21/23 From: Kate Salvador Admit Date: 03/06/2023 07:38:00 PM Patient Name: Noe López Visit Number: [id number] Discharge Date: 03/09/2023 02:36:00 PM ATTENTION: The Clinical Documentation Specialists (CDI) and [facility] Coding Staff appreciate your assistance in clarifying documentation. Please respond to the clarification below the line at the bottom and electronically sign. The CDI & [facility] Coding staff will review the response and follow-up if needed. Please note: Queries are made part of the Legal Health Record. If you have any questions, please contact the author of this message via ITS. Dr. Carlo Bermudez, Acute metabolic encephalopathy is documented in the H&P with alcohol withdrawal delirium syndrome. Additional clarification regarding the cause of acute metabolic encephalopathy is requested. History/Risk Factors: Alcohol dependence, COPD, tobacco addiction, His and is lonely. Clinical Indicators: He told his cousin that he is very lonely and he wants end his life. Very shaky and irritable. Last drink was 5 days ago. Labs: CO2 13, lactic acid 10.8, magnesium 1.5, AST 105, ALT 71, serum alcohol <10 EEG: none CT/MRI Brain: none Treatment: Assess CIWA scale, Ativan IV, Sodium Chloride 0.9% IV, Thiamin 100 mg IM, Valium 5 mg IVP TID Consults: At this time patient DOES NOT meet criteria for inpatient psychiatric admission, however due to patient being fairly high risk for potential self-harm due to his drinking, age and also marital status and psychiatric symptomology, we'll continue to follow along and possibly admit patient to mental health unit if patient does meet criteria at a later time. Increase Buspar to 20 mg TID, Zoloft 50 mg, Trazodone 50 mg, taper Diazepam for withdrawal symptoms, declines ant-craving for alcohol use Please clarify the cause of encephalopathy, if known: [ x] Acute Alcohol Withdrawal Delirium Encephalopathy [ ] Acute Metabolic Encephalopathy, unknown cause [ ] Other, please specify [ ] Unable to determine MTDD
== END 2023-03-09 14:36 | DRG 897 ==
LOC: EC 17:03 → 3SCARD 19:38 → 4SSUR 03-07 11:08
PROVIDERS: ADMIT Hospitalist; ATTEND Hospitalist
DX: F10.231 Alcohol dependence with withdrawal delirium (principal); R45.851 Suicidal ideations; E87.29 Other acidosis; E44.0 Moderate protein-calorie malnutrition; Z68.1 Body mass index [BMI] 19.9 or less, adult; D69.6 Thrombocytopenia, unspecified; E86.0 Dehydration; J44.9 Chronic obstructive pulmonary disease, unspecified; G62.9 Polyneuropathy, unspecified; Y90.0 Blood alcohol level of less than 20 mg/100 ml; F32.A Depression, unspecified; G47.00 Insomnia, unspecified; R74.01 Elevation of levels of liver transaminase levels; F17.210 Nicotine dependence, cigarettes, uncomplicated; Z71.6 Tobacco abuse counseling; F41.9 Anxiety disorder, unspecified; Z79.1 Long term (current) use of non-steroidal anti-inflammatories (NSAID); Z79.899 Other long term (current) drug therapy; Z71.3 Dietary counseling and surveillance
CPT/HCPCS: 36415; 80053; 80320; 81001; 83605; 83690; 83735; 83880; 84100; 84484; 85025; 85610; 85730; 87635; 93005; 96361; 96372; 96374; 96375; 96376; 99291

== ENCOUNTER 2023-03-09 14:37 | Inpatient (IN) | payer MEDICARE ==
[2023-03-09] MEDS ORDERED: MAGNESIUM HYDROXIDE 2,400 MG/30 ML CUP PO PRN (19:31)
[2023-03-09] MEDS ORDERED: LORazepam 1 MG TAB PO PRN (19:31)
[2023-03-09] MEDS ORDERED: MAG HYDROX/AL HYDROX/SIMETH 30 ML CUP PO PRN (19:31)
[2023-03-09] MEDS ORDERED: OLANZapine 10 MG VIAL IM PRN (19:35)
[2023-03-09] MEDS ORDERED: EPINEPHRINE INHALATION PRN (19:42)
[2023-03-09] MEDS ORDERED: OLANZapine 5 MG TAB PO PRN (19:46)
[2023-03-09] MEDS: busPIRone HCl 10 MG TAB PO SCH (21:59)
[2023-03-09] MEDS: traZODone HCL 50 MG TAB PO SCH (21:59)
[2023-03-10] MEDS: NICOTINE 14MG/24HR PATCH TRANSDERM SCH (08:20)
[2023-03-10] MEDS: busPIRone HCl 10 MG TAB PO SCH ×3 (08:21→20:05)
[2023-03-10] MEDS: THIAMINE 100 MG TAB PO SCH (08:21)
[2023-03-10] MEDS ORDERED: SERTRALINE 50 MG TAB PO SCH (09:00)
[2023-03-10] MEDS ORDERED: THIAMINE 100 MG TAB PO SCH (09:00)
[2023-03-10] MEDS ORDERED: IBUPROFEN 600 MG TAB PO SCH (09:00)
[2023-03-10 09:15] LABS: LDL Cholesterol,Calculated 74.4 mg/dL (0.0-131.0); VLDL Calculation 11.06 mg/dL (5.00-40.00)
--- NOTE | 2023-03-10 12:06 | P.HP ---
Psychiatric H&P - . H&P Date: 03/10/23 History & Physical: Allergies Allergy/AdvReac Type Severity Reaction Status Date / Time No Known Allergies Allergy Verified 03/06/23 18:48 Vital Signs Temp 98.6 F 03/09/23 22:57 Pulse 124 H 03/09/23 22:57 Resp 18 03/09/23 22:57 BP 133/84 03/09/23 22:57 Pulse Ox 96 03/09/23 22:57 FiO2 Intake & Output 03/09/23 03/10/23 03/10/23 18:59 06:59 18:59 Weight 63.5 kg Laboratory Last Values Estimated Ave Glu mg/dL 103 mg/dL 03/10/23 06:23 Hemoglobin A1c 5.2 % (<=6.0) 03/10/23 06:23 03/10/23 09:01 IDENTIFYING DATA: This patient is a 67-year-old male he currently lives alone in a house, he is , he is 2 kids. HISTORY OF PRESENT ILLNESS: The patient presented to the hospital on 03/06 for altered mental status, alcohol use was about 3 days prior to coming into the hospital. Patient apparently was endorsing suicidal ideations at that time in the ER. LFTs were mildly elevated. Blood alcohol level was negative. Patient apparently was endorsing some depression, going through alcohol withdrawals. Patient's nurse claims that patient is doing better today, fairly cooperative, denies ever having any suicidal thoughts. Patient's ciwa scores were 0. Patient claims that he stopped drinking immediately and went into detox. He claims that he is having bad neuropathy in his feet and believed that he was having a stroke therefore came to the hospital. Claims that he was shaky. States that he is doing better now with regard to his withdrawals. He states that his girlfriend left him about 3 months ago which was hard for him to deal with. States that he is currently dating someone else now. States that he just started taking antidepressant medications and anxiety meds from his family doctor. States that he his neighbor called the ambulance for him due to with her withdrawals, states that his mood is better now, states that he recently relapsed back on vodka a few weeks ago. States that he's been drinking about a gallon a day of vodka. He is denying any hallucinations at this time. He claims that he is future oriented. Claims that he does have guns at home and claims that they are locked in a safe. Claims that his sleep has been on and off, appetite has been fair. At this time patient denies any suicidal or homical ideations, intent or plan. Patient denies any auditory, visual hallucinations and denies any paranoia or delusions. Patients admits to using alcohol as noted above, states that his been in rehab twice in the past. Last drink was about 4 days ago. Claims that he does smoke cigarettes. Records Tech spoke with patients daughter Miguel Ángel over the phone at [phone] who states that patient has a long hx of etoh abuse and depression. apparently patient sent her a photo of him with a gun to his head. She states that her father's cousin took away one of the guns from the home however she believes that there might be more guns in the home in a safe. We spoke about patient's high risk and the need for police to be involved to have the rest of the guns removed from the house and she is agreeable to this and will call the police and report this today and continue to update writer producer on the situation. Upon today's interview, patient claims to be doing a bit better. Spoke with patient about starting anti cravings medication, patient agreeable, as long as his liver enzymes will support this, will order blood work for 03/11. Also offered patient rehab upon discharge, patient refusing at this time. Patient not endorsing SI/HI, nor AH/VH at this time. Patient claims he slept pretty good. Continues to be focused o discharge, stating he has a lot of things to take care of at home. Reiterated to patient that he needs to have a safe environment to return home to. Patient agrees. Explained the court process for admission, patient signed in voluntary. States his appetite is well, and he's sleeping well. Very superficial at times. PAST PSYCHIATRIC HISTORY: Patient has a a history of depression, alcohol abuse. Patient is currently on Prozac and BuSpar as well. Patient denies any previous psychiatric hospitalizations. Patient denies any psychiatric outpatient follow- up. Patient denies any history of suicide attempts in the past. Past Medical History: COPD History of Any Multi-Drug Resistant Organisms: None Reported Additional Past Surgical History / Comment(s): retina surgery Past Anesthesia/Blood Transfusion Reactions: No Reported Reaction Past Psychological History: Anxiety Smoking Status: Current every day smoker Past Alcohol Use History: Daily Past Drug Use History: Marijuana ALLERGIES: as per EMR. CHEMICAL DEPENDENCY HISTORY: as per HPI. FAMILY PSYCHIATRIC/SUBSTANCE USE HISTORY: denies SOCIAL HISTORY: Patient was born and raised in [place] and now currently lives in [facility]. He states that he completed some college after high school. States that he has 2 daughters. He is currently . He lives alone in a house. He apparently was arrested and served time for a DUI about 6 years ago. MENTAL STATUS EXAM: General Appearance: Patient appears to be thin, balding, stated age is alert, pleasant, and cooperative. Patient appears to have fair hygiene and grooming wearing hospital gown with poor eye contact. Behavior: Patient is calmly seated without any agitated behavior. Superficial at times Speech: Patient's speech is fluent and nonpressured. Talkative Mood/Affect: Patient reports their mood is "same", affect is congruent Suicidality/Homicidality: Patient denies having any suicidal or homicidal ideation intent or plan. Perceptions: Patient denies any visual hallucinations and denies any auditory hallucinations Though content/process: There is no evidence of any delusional thought content and thought process is linear and goal-directed. More future oriented Memory and concentration: AOX3, grossly intact for the purposes of this session. Can spell "WORLD" backwards Judgment and insight: poor STRENGTHS/WEAKNESSES: strength is that patient is resilient. Weakness is that patient has poor judgment and is impulsive INTELLECT: average IMPRESSIONS: Depressive disorder unspecified borderline personality traits Alcohol use disorder severe dependence, currently in withdrawal Nicotine dependence PLAN: -Patient is admitted under voluntary status to MHU for stabilization of psychiatric symptoms and safety. Patient has signed adult voluntary form and medication consent and is placed in patient's chart. -Medications : Will start patient on BuSpar 20 mg 3 times a day for anxiety, increase Zoloft 75 mg daily for mood/anxiety, trazodone 50 mg daily at bedtime for mood/insomnia. Start librium 25mg tid for alcohol withdraw. Will recheck liver enzymes 03/11 to see if patient qualifies for naltrexone. -Ativan and Haldol PRN for agitation/aggression -Started thiamine, MVM for etoh use] -CIWA protocol with Ativan PRN for ETOH withdrawal -Patient was counselled on substance abuse and desired to cut back on use -Patient was informed of the risks, benefits and side effects of the medication and patient verbally consented to taking the medications. Patient signed med consent form and was placed in chart. -Internal Medicine consult to perform medical evaluation and physical. -NRT - nicotine patch -SW on board for discharge planning. Encourage patient to participate in groups to work on coping skills.
--- NOTE | 2023-03-10 12:27 | P.MDCNMH ---
History of Present Illness H&P Date: 03/10/23 History of present illness; patient is a 67-year-old gentleman with past medica l history significant for alcohol abuse, COPD, tobacco addiction who initially presented to the hospital for alcohol detox. Patient has been admitted in the hospital in the past with similar presentation and has undergone alcohol detox. Patient states that ever since his he has been taking a lot. Patient admits to drinking one fifth a day. Patient lives alone. Patient had mentioned to his cousin that he is very lonely and he wants to end his life. Patient was admitted to inpatient, psychiatry evaluation the patient, recommended at this time patient was high risk of harming himself, recommended inpatient psych admission. Patient was admitted to inpatient psych yesterday REVIEW OF SYSTEMS: CONSTITUTIONAL: No fever, no malaise, no fatigue. HEENT: No recent visual problems or hearing problems. Denied any sore throat. CARDIOVASCULAR: No chest pain, orthopnea, PND, no palpitations, no syncope. PULMONARY: No shortness of breath, no cough, no hemoptysis. GASTROINTESTINAL: No diarrhea, no nausea, no vomiting, no abdominal pain. NEUROLOGICAL: No headaches, no weakness, no numbness. HEMATOLOGICAL: Denies any bleeding or petechiae. GENITOURINARY: Denies any burning micturition, frequency, or urgency. MUSCULOSKELETAL/RHEUMATOLOGICAL: Denies any joint pain, swelling, or any muscle pain. ENDOCRINE: Denies any polyuria or polydipsia. The rest of the 14-point review of systems is negative. PHYSICAL EXAMINATION: GENERAL: The patient is alert and oriented x3, not in any acute distress. Well developed, well nourished. HEENT: Pupils are round and equally reacting to light. EOMI. No scleral icterus. No conjunctival pallor. Normocephalic, atraumatic. No pharyngeal erythema. No thyromegaly. CARDIOVASCULAR: S1 and S2 present. No murmurs, rubs, or gallops. PULMONARY: Chest is clear to auscultation, no wheezing or crackles. ABDOMEN: Soft, nontender, nondistended, normoactive bowel sounds. No palpable organomegaly. MUSCULOSKELETAL: No joint swelling or deformity. EXTREMITIES: No cyanosis, clubbing, or pedal edema. NEUROLOGICAL: Gross neurological examination did not reveal any focal deficits. SKIN: No rashes. Assessment and plan Alcohol abuse Alcohol detox Suicidal ideations COPD Chronic nicotine dependence, Thrombocytopenia Monitor vital signs Suicide precautions Elopement precautions Continue psych meds per psychiatry team Continue Home meds Labs and medication were reviewed.. Continue same treatment. Continue with symptomatic treatment. Resume home medication. Monitor labs and vitals. DVT and GI prophylaxis. Further recommendations as per clinical course of the patient Dictation was produced using DoseMe dictation software. please excuse any grammatical, word or spelling errors. Past Medical History Past Medical History: COPD History of Any Multi-Drug Resistant Organisms: None Reported Additional Past Surgical History / Comment(s): retina surgery Past Anesthesia/Blood Transfusion Reactions: No Reported Reaction Past Psychological History: Anxiety, Depression Smoking Status: Current every day smoker Past Alcohol Use History: Daily Additional Past Alcohol Use History / Comment(s): Fifth of vodka a day. Past Drug Use History: Marijuana Additional Drug Use History / Comment(s): Occasional Mrijuanna use- edibles - Past Family History Father Additional Family Medical History / Comment(s): alzheimers Medications and Allergies Home Medications Medication Instructions Recorded Confirmed Type EPINEPHrine [Primatene Mist] 1 puff INHALATION RT-QID PRN 03/06/23 03/09/23 History Ibuprofen [Motrin] 600 mg PO DAILY 03/06/23 03/09/23 History Sertraline [Zoloft] 50 mg PO DAILY tab 03/09/23 03/09/23 Rx Thiamine [Vitamin B-1] 100 mg PO DAILY tab 03/09/23 03/09/23 Rx busPIRone HCl [Buspar] 20 mg PO TID tab 03/09/23 03/09/23 Rx traZODone HCL [Desyrel] 50 mg PO HS tab 03/09/23 03/09/23 Rx Allergies Allergy/AdvReac Type Severity Reaction Status Date / Time No Known Allergies Allergy Verified 03/06/23 18:48 Physical Exam Vitals: Vital Signs Temp Pulse Resp BP Pulse Ox 03/09/23 22:57 98.6 F 124 H 18 133/84 96 Intake and Output 03/09/23 03/10/23 03/10/23 22:59 06:59 14:59 Other: Weight 63.5 kg Cranial Nerve Examination - Cranial Nerves Cranial Nerve II- Optic: Intact (Cranial nerves II-12 intact) Cranial Nerve III- Oculomotor: Intact Cranial Nerve IV- Trochlear: Intact Cranial Nerve V- Trigeminal: Intact Cranial Nerve - Abducens: Intact Cranial Nerve VII- Facial: Intact Cranial Nerve VIII- Auditory: Intact Cranial Nerve IX- Glossopharyngeal: Intact Cranial Nerve X- Vagus: Intact Cranial Nerve XI- Accessory: Intact Cranial Nerve XII- Hypoglossal: Intact Results Labs: Abnormal Lab Results - Last 24 Hours (Table) 03/10/23 Range/Units 06:23 HDL Cholesterol 77.50 H (40.00-60.00) mg/dL
[2023-03-10 13:09] VITALS: BMI 19.0
[2023-03-10] MEDS: chlordiazePOXIDE 25 MG CAP PO SCH ×2 (16:16→20:05)
[2023-03-10] MEDS: traZODone HCL 50 MG TAB PO SCH (20:05)
[2023-03-11] MEDS ORDERED: SERTRALINE 50 MG TAB PO SCH (09:00)
[2023-03-11] MEDS: NICOTINE 14MG/24HR PATCH TRANSDERM SCH (09:10)
[2023-03-11] MEDS: busPIRone HCl 10 MG TAB PO SCH ×3 (09:10→21:43)
[2023-03-11] MEDS: chlordiazePOXIDE 25 MG CAP PO SCH (09:10)
[2023-03-11] MEDS: THIAMINE 100 MG TAB PO SCH (09:12)
--- NOTE | 2023-03-11 11:20 | P.PN ---
Progress Note - Text Progress Note Date: 03/11/23 Interval history: Patient was seen in group earlier and then return to his room and was directable and agreeable to speak with commercial real estate underwriter. Patient claims that he is feeling a bit tired today. States that he feels like he needs a nap today. Anxiety is doing mildly better in terms of his mood and anxiety. Claims that the withdrawal symptoms have been getting better. States that he slept really well last night. Continues to and interact with others. He appears to be mildly more cheerful today and brighter during presentation. Claims that his appetite is fair. At this time patient denies any suicidal or homicidal ideations intent or plan. Denies any Auditory or visual hallucinations. Patient denies any side effects from the medications and has been compliant with meds. Mental status exam: General Appearance: [Patient appears to be thin, wearing glasses, stated age is alert, directable, and cooperative.] Behavior: [No agitated behavior. Patient is calm and directable] Speech: Patient's speech is fluent and nonpressured. Mood/Affect: Mood is improving mildly, affect is congruent and constricted. Suicidality/Homicidality: Patient denies having any suicidal or homicidal ideation intent or plan. Perceptions: Patient denies any auditory or visual hallucinations. Though content/process: [There is no evidence of any delusional thought content and thought process is linear and goal-directed.] Memory and concentration: AOX3, grossly intact for the purposes of this session Judgment and insight: improving mildly Assessment/Plan: -Patient is admitted under voluntary status to MHU for stabilization of psychiatric symptoms and safety. Patient has signed adult voluntary form and medication consent and is placed in patient's chart. -Medications : BuSpar 20 mg 3 times a day for anxiety, change Zoloft 75 mg qhs for mood/anxiety, trazodone 50 mg daily at bedtime for mood/insomnia. Decrease librium 20 mg tid for alcohol withdraw. Will recheck liver enzymes to see if patient qualifies for naltrexone. -Ativan and Haldol PRN for agitation/aggression -thiamine, MVM for etoh use] -CIWA protocol with Ativan PRN for ETOH withdrawal -NRT - nicotine patch -SW on board for discharge planning. Encourage patient to participate in groups to work on coping skills.
[2023-03-11] MEDS ORDERED: SERTRALINE 25 MG TAB PO SCH (21:00)
[2023-03-11] MEDS: traZODone HCL 50 MG TAB PO SCH (21:43)
[2023-03-12] MEDS: NICOTINE 14MG/24HR PATCH TRANSDERM SCH (09:02)
[2023-03-12] MEDS: busPIRone HCl 10 MG TAB PO SCH ×3 (09:04→20:55)
[2023-03-12] MEDS: THIAMINE 100 MG TAB PO SCH (09:04)
[2023-03-12 09:19] LABS: ALT 55 U/L (4-49); AST 86 U/L (17-59); African American GFR (CKD) >90 (>60 ml/min/1.73 sqM); Albumin 3.4 g/dL (3.5-5.0); Alkaline Phosphatase 66 U/L (38-126); Anion Gap 7 mmol/L; Blood Urea Nitrogen 11 mg/dL (9-20); Calcium 8.9 mg/dL (8.4-10.2); Carbon Dioxide 28 mmol/L (22-30); Chloride 98 mmol/L (98-107); Glucose 98 mg/dL (74-99); Non-African American GFR(CKD) >90 (>60 ml/min/1.73 sqM); Sodium 133 mmol/L (137-145); Total Bilirubin 0.9 mg/dL (0.2-1.3); Total Protein 6.2 g/dL (6.3-8.2)
--- NOTE | 2023-03-12 11:00 | P.PN ---
Progress Note - Text Progress Note Date: 03/12/23 Interval history: Patient was seen laying in bed today. He was sleeping. She was welcome by ramon vang. He apparently has been bilateral leg weakness and also urinary incontinence. CT x-ray and bladder scan were ordered. Patient claims that he is doing a bit better with regards to his mood and anxiety. States that he is tolerating medications fairly well however continues to be sleepy. Claims that the withdrawal symptoms have been getting better. States that he slept really well last night. Claims that his appetite is fair. At this time patient denies any suicidal or homicidal ideations intent or plan. Denies any Auditory or visual hallucinations. Patient denies any side effects from the medications and has been compliant with meds. Mental status exam: General Appearance: Patient appears to be thin, wearing glasses, stated age is alert, directable, and cooperative. Behavior: No agitated behavior. Patient is calm and directable Speech: Patient's speech is fluent and nonpressured. Mood/Affect: Mood is improving mildly, affect is congruent and constricted. Suicidality/Homicidality: Patient denies having any suicidal or homicidal ideation intent or plan. Perceptions: Patient denies any auditory or visual hallucinations. Though content/process: There is no evidence of any delusional thought content and thought process is linear and goal-directed. Memory and concentration: AOX3, grossly intact for the purposes of this session Judgment and insight: improving mildly Assessment/Plan: -Patient is admitted under voluntary status to MHU for stabilization of psychiatric symptoms and safety. Patient has signed adult voluntary form and medication consent and is placed in patient's chart. -Medications : decrease BuSpar 10 mg 3 times a day for anxiety, increase Zoloft 100 mg qhs for mood/anxiety, trazodone 50 mg daily at bedtime for mood/insomnia. Decrease librium 10 mg tid for alcohol withdraw. Will start naltrexone 50 mg daily for etoh cravings. -ordered CT brain, xray and UA/bladder scan as per medicine recommendations -Ativan and Haldol PRN for agitation/aggression -thiamine, MVM for etoh use] -CIWA protocol with Ativan PRN for ETOH withdrawal -NRT - nicotine patch -SW on board for discharge planning. Encourage patient to participate in groups to work on coping skills.
--- NOTE | 2023-03-12 12:25 | CT ---
EXAMINATION TYPE: CT brain wo con CT DLP: 1290.80 mGycm, Automated exposure control for dose reduction was used. DATE OF EXAM: 03/12/2023 12:18 PM COMPARISON: 08/24/2021.. CLINICAL INDICATION:Male, 67 years old with history of weakness of lower extremity, Weakness in lower extremities TECHNIQUE: Brain: Axial CT images of the brain were obtained with coronal and sagittal reformats created and rev iewed. Contrast used: None. Oral contrast used: None. FINDINGS: Brain: Extra-axial spaces: No abnormal extra-axial fluid collections. Ventricular system: Dilatation in proportion to cerebral atrophy. Cerebral parenchyma: Cerebral atrophy. No acute intraparenchymal hemorrhage or mass effect. The mcpherson -white junction is well differentiated. Scattered hypoattenuating areas are seen within the white mat ter. Cerebellum: Unremarkable. Mass effect: No evidence of midline shift. Intracranial vasculature: Atherosclerotic calcifications of the intracranial vessels. Soft tissues: Normal. Calvarium/osseous structures: No depressed skull fracture. Paranasal sinuses and mastoid air cells: Mild scattered paranasal sinus disease. Visualized orbits: Postsurgical changes left globe. Bilaterally aphakia. IMPRESSION: 1. No acute intracranial process. 2. Nonspecific white matter changes, likely secondary to chronic small vessel ischemic disease.
--- NOTE | 2023-03-12 12:43 | XR ---
EXAMINATION TYPE: XR lumbar spine 2 or 3V DATE OF EXAM: 03/12/2023 12:31 PM CLINICAL INDICATION:Male, 67 years old with history of lower extremity weakness; [facility] COMPARISON: None TECHNIQUE: XR lumbar spine 2 or 3V - Frontal, lateral and coned in L5-S1 lateral views of the spine. FINDINGS: No evidence of any acute osseous pathology. No evidence of loss of vertebral body height i s seen. There is normal alignment of the lumbar vertebral bodies. Mild scattered disc space narrowing . Multilevel marginal osteophyte formation throughout the visualized spine. There is facet joint arth ropathy throughout the spine. Scattered at least mild neural foraminal stenosis. This course of the a rterial vasculature. IMPRESSION: 1. No acute fracture. 2. Mild multilevel disc degeneration.
[2023-03-12] MEDS: NICOTINE GUM (POLACRILEX) 2 MG GUM BUCCAL PRN (13:14)
[2023-03-12 18:48] LABS: Appearance,Urine Clear (Clear); Bilirubin,Urine Negative (Negative); Blood,Urine Negative (Negative); Color,Urine Yellow; Glucose,Urine (UA) Negative (Negative); Ketones,Urine Negative (Negative); Leukocyte Esterase,Urine Negative (Negative); Nitrite,Urine Negative (Negative); Protein,Urine Trace (Negative); Specific Gravity,Urine 1.021 (1.001-1.035)
[2023-03-12] MEDS: SERTRALINE 100 MG TAB PO SCH (20:55)
[2023-03-12] MEDS: traZODone HCL 50 MG TAB PO SCH (20:55)
[2023-03-13 07:39] VITALS: RESP 16
[2023-03-13] MEDS: NICOTINE 14MG/24HR PATCH TRANSDERM SCH (09:23)
[2023-03-13] MEDS: busPIRone HCl 10 MG TAB PO SCH ×3 (09:23→21:59)
[2023-03-13] MEDS: NALTREXONE HCL 50 MG TAB PO SCH (09:23)
[2023-03-13] MEDS: THIAMINE 100 MG TAB PO SCH (09:23)
--- NOTE | 2023-03-13 10:19 | P.PN ---
Progress Note - Text Progress Note Date: 03/13/23 Interval history: Patient was seen laying in bed today. He was sleeping in his bed today. Nickie clifton claims that he is still feeling somewhat tired with the medications. Claims that his mood and anxiety are continuing to improve. Claims that the withdrawal symptoms have been getting better. Has mainly been isolating in his room. States that he slept really well last night, did not offer any overnight complaints. Claims that his appetite is fair. At this time patient denies any suicidal or homicidal ideations intent or plan. Denies any Auditory or visual hallucinations. Patient denies any side effects from the medications and has been compliant with meds. Mental status exam: General Appearance: Patient appears to be thin, wearing glasses, stated age is alert, directable, and cooperative. Behavior: No agitated behavior. Patient is calm and directable Speech: Patient's speech is fluent and nonpressured. Mood/Affect: Mood is improving mildly, affect is congruent Suicidality/Homicidality: Patient denies having any suicidal or homicidal ideation intent or plan. Perceptions: Patient denies any auditory or visual hallucinations. Though content/process: There is no evidence of any delusional thought content and thought process is linear and goal-directed. Memory and concentration: AOX3, grossly intact for the purposes of this session Judgment and insight: improving mildly Assessment/Plan: -Patient is admitted under voluntary status to MHU for stabilization of psy chiatric symptoms and safety. Patient has signed adult voluntary form and medication consent and is placed in patient's chart. -Medications : BuSpar 10 mg 3 times a day for anxiety, Zoloft 100 mg qhs for mood/anxiety, decrease trazodone 25 mg daily at bedtime for mood/insomnia. Decrease librium 10 mg bid for alcohol withdraw with last dose tomorrow morning. continue naltrexone 50 mg daily for etoh cravings -CT brain - did not show any acute changes, xray of lumbar spine - mild degen disc disease, and UA/bladder scan as per medicine recommendations -Ativan and Haldol PRN for agitation/aggression -thiamine, MVM for etoh use] -CIWA protocol with Ativan PRN for ETOH withdrawal -NRT - nicotine patch -SW on board for discharge planning. Encourage patient to participate in groups to work on coping skills. SW to work with daughter/family to secure guns/weapons in the house today and prepare for discharge likely monday.
[2023-03-13] MEDS ORDERED: traZODone HCL 50 MG TAB PO SCH (21:00)
[2023-03-13] MEDS: SERTRALINE 100 MG TAB PO SCH (21:59)
[2023-03-13] MEDS: NICOTINE GUM (POLACRILEX) 2 MG GUM BUCCAL PRN (23:25)
[2023-03-13] MEDS: IBUPROFEN 600 MG TAB PO PRN (23:25)
[2023-03-14] MEDS: NICOTINE 14MG/24HR PATCH TRANSDERM SCH (08:53)
[2023-03-14] MEDS: NALTREXONE HCL 50 MG TAB PO SCH (08:54)
[2023-03-14] MEDS: THIAMINE 100 MG TAB PO SCH (08:54)
[2023-03-14] MEDS: busPIRone HCl 10 MG TAB PO SCH ×3 (08:54→21:02)
[2023-03-14] MEDS ORDERED: traZODone HCL 50 MG TAB PO PRN (11:39)
--- NOTE | 2023-03-14 11:48 | P.PN ---
Progress Note - Text Progress Note Date: 03/14/23 Interval history: Patient was seen laying in bed today, and agreeable to speak to senior mortgage underwriter. Patient complains of weakness in bilateral legs however states that it is improving mildly. PT consulted and will see him today. Has mainly been isolating in his room. Encouraged patient to go to the lounge to interact with peers. Patient claims he feels more upbeat today. States that he slept really well last night, did not offer any other overnight complaints. Claims that his appetite is fair. States he's very sleepy, encouraged patient to get out of bed more often. At this time patient denies any suicidal or homicidal ideations intent or plan. Denies any Auditory or visual hallucinations. Patient denies any side effects from the medications and has been compliant with meds. Mental status exam: General Appearance: Patient appears to be thin, wearing glasses, stated age is alert, directable, and cooperative. Behavior: No agitated behavior. Patient is calm and directable Speech: Patient's speech is fluent and nonpressured. Mood/Affect: Mood is improving mildly, affect is congruent Suicidality/Homicidality: Patient denies having any suicidal or homicidal ideation intent or plan. Perceptions: Patient denies any auditory or visual hallucinations. Though content/process: There is no evidence of any delusional thought content and thought process is linear and goal-directed. more future oriented. Memory and concentration: AOX3, grossly intact for the purposes of this session Judgment and insight: improving Assessment/Plan: -Patient is admitted under voluntary status to MHU for stabilization of psychiatric symptoms and safety. Patient has signed adult voluntary form and medication consent and is placed in patient's chart. -Medications : BuSpar 10 mg 3 times a day for anxiety, Zoloft 100 mg qhs for mood/anxiety, change trazodone 25 mg prn at bedtime for mood/insomnia. d/c librium, naltrexone 50 mg daily for etoh cravings, add melatonin 5mg po qhs -Ativan and Haldol PRN for agitation/aggression -thiamine, MVM for etoh use -NRT - nicotine patch -SW on board for discharge planning. Encourage patient to participate in groups to work on coping skills. SW to work with daughter/family to secure guns/weapons in the house today and prepare for discharge likely Wednesday, awaiting PT recommendations. Likely d/c home tomorrow with home health services with PT/OT services at discharge
[2023-03-14] MEDS: IBUPROFEN 600 MG TAB PO PRN ×2 (14:05→23:34)
[2023-03-14] MEDS ORDERED: ACETAMINOPHEN TAB 325 MG TAB PO PRN (17:31)
[2023-03-14] MEDS: NICOTINE GUM (POLACRILEX) 2 MG GUM BUCCAL PRN (17:36)
[2023-03-14] MEDS: PREGABALIN 50 MG CAP PO SCH (17:36)
[2023-03-14] MEDS ORDERED: MELATONIN 5 MG TABLET PO SCH (21:00)
[2023-03-14] MEDS ORDERED: PREGABALIN 50 MG CAP PO SCH (21:00)
[2023-03-14] MEDS: SERTRALINE 100 MG TAB PO SCH (21:02)
[2023-03-15 07:33] VITALS: BP 107/62; PULSE 58; TEMP 97
[2023-03-15] MEDS: NICOTINE 14MG/24HR PATCH TRANSDERM SCH (08:56)
[2023-03-15] MEDS: NALTREXONE HCL 50 MG TAB PO SCH (08:56)
[2023-03-15] MEDS: PREGABALIN 50 MG CAP PO SCH (08:56)
[2023-03-15] MEDS: busPIRone HCl 10 MG TAB PO SCH ×2 (08:56→15:55)
[2023-03-15] MEDS: THIAMINE 100 MG TAB PO SCH (08:56)
[2023-03-15 11:12] LABS: African American GFR (CKD) >90 (>60 ml/min/1.73 sqM); Anion Gap 12 mmol/L; Blood Urea Nitrogen 13 mg/dL (9-20); Calcium 9.6 mg/dL (8.4-10.2); Carbon Dioxide 28 mmol/L (22-30); Chloride 95 mmol/L (98-107); Glucose 101 mg/dL (74-99); Non-African American GFR(CKD) >90 (>60 ml/min/1.73 sqM); Potassium 4.5 mmol/L (3.5-5.1); Sodium 135 mmol/L (137-145)
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
--- NOTE | 2023-03-15 13:12 | XR ---
EXAMINATION TYPE: XR foot complete LT DATE OF EXAM: 03/15/2023 COMPARISON: NONE HISTORY: Pain TECHNIQUE: Three views are submitted. FINDINGS: Postsurgical change involving the second and fifth metatarsals. Arthropathy of the first MTP joint. C alcaneal spur with diffuse osteopenia. Hallux valgus deformity first digit. No diagnostic evidence of fracture involving the first digit. IMPRESSION: 1. No diagnostic evidence of acute fracture involving the first digit. 2. Diffuse osteopenia with postsurgical changes involving the second fifth digits.
== END 2023-03-15 17:20 | disposition home health service (06) | DRG 881 ==
LOC: 3MHU 14:37 → UNDOADMIN 21:48 → 3MHU 21:48 → UNDODISIN 03-15 17:20
PROVIDERS: ADMIT Psychiatry & Neurology Psychiatry; ATTEND Psychiatry & Neurology Psychiatry
DX: F32.A Depression, unspecified (principal); F10.239 Alcohol dependence with withdrawal, unspecified; R45.851 Suicidal ideations; F60.89 Other specific personality disorders; J44.9 Chronic obstructive pulmonary disease, unspecified; Z11.52 Encounter for screening for COVID-19; F41.9 Anxiety disorder, unspecified; G47.00 Insomnia, unspecified; R32 Unspecified urinary incontinence; G62.9 Polyneuropathy, unspecified; F17.210 Nicotine dependence, cigarettes, uncomplicated; Z71.6 Tobacco abuse counseling; Z79.899 Other long term (current) drug therapy; Z79.1 Long term (current) use of non-steroidal anti-inflammatories (NSAID); Z86.73 Personal history of transient ischemic attack (TIA), and cerebral infarction without residual deficits; Z71.41 Alcohol abuse counseling and surveillance of alcoholic; Z71.51 Drug abuse counseling and surveillance of drug abuser
CPT/HCPCS: 70450; 72100; 80048; 80053; 80061; 81003; 82607; 82747; 83036; 87635

== ENCOUNTER 2024-06-27 18:59 | Inpatient (IN) | payer MEDICARE ==
--- NOTE | 2024-06-27 21:02 | ED ---
Psych HPI <Moiz Arrieta Geno - Last Filed: 06/28/24 03:18> - General Source: patient, EMS Mode of arrival: EMS <Stephie Marin - Last Filed: 06/29/24 13:48> - General Chief Complaint: Psychiatric Symptoms Stated Complaint: Petition Time Seen by Provider: 06/27/24 19:05 - History of Present Illness Initial Comments: 69-year-old male with past medical history of daily alcohol abuse who presents emergency department with a petition. Patient's guardian has petitioned the patient for suicidal statements. Petition does not provide much detail. According to police who picked the patient up at the house the patient was making statements that he might as well . Patient reports that he said this because his family does not visit very much. Patient admits to drinking twice a week. Drink a pint today. Denies any injuries. Denies any attempt at harming himself. No other alleviating, precipitating or modifying factors (Stephie Marin) - Related Data Home Medications Medication Instructions Recorded Confirmed No Known Home Medications 06/27/24 06/28/24 Allergies Allergy/AdvReac Type Severity Reaction Status Date / Time No Known Allergies Allergy Verified 06/27/24 20:40 Review of Systems ROS Other: All systems not noted in ROS Statement are negative. <Moiz Arrieta Geno - Last Filed: 06/28/24 03:18> ROS Other: All systems not noted in ROS Statement are negative. <Stephie Marin - Last Filed: 06/29/24 13:48> ROS Statement: Those systems with pertinent positive or pertinent negative responses have been documented in the HPI. Past Medical History Past Medical History: COPD, Deep Vein Thrombosis (DVT) History of Any Multi-Drug Resistant Organisms: None Reported Additional Past Surgical History / Comment(s): retina surgery, L leg below knee amputation Past Anesthesia/Blood Transfusion Reactions: No Reported Reaction Past Psychological History: Anxiety, Depression Smoking Status: Current every day smoker Past Alcohol Use History: Daily Past Drug Use History: None Reported - Past Family History Father Additional Family Medical History / Comment(s): alzheimers <Stephie Marin - Last Filed: 06/29/24 13:48> General Exam General appearance: alert, appears intoxicated Head exam: Present: atraumatic, normocephalic, normal inspection Eye exam: Present: normal appearance, PERRL, EOMI. Absent: scleral icterus, conjunctival injection, periorbital swelling ENT exam: Present: normal exam, mucous membranes moist Neck exam: Present: normal inspection. Absent: tenderness, meningismus, lymphadenopathy Respiratory exam: Present: normal lung sounds bilaterally. Absent: respiratory distress, wheezes, rales, rhonchi, stridor Cardiovascular Exam: Present: regular rate, normal rhythm, normal heart sounds. Absent: systolic murmur, diastolic murmur, rubs, gallop, clicks GI/Abdominal exam: Present: soft, normal bowel sounds. Absent: distended, tenderness, guarding, rebound, rigid Extremities exam: Present: normal inspection, full ROM, normal capillary refill. Absent: tenderness, pedal edema, joint swelling, calf tenderness Back exam: Present: normal inspection Neurological exam: Present: alert, oriented X3, CN II-XII intact Psychiatric exam: Present: normal affect, normal mood Skin exam: Present: warm, dry, intact, normal color. Absent: rash <Stephie Marin - Last Filed: 06/29/24 13:48> Course Vital Signs 06/27/24 06/27/24 19:01 21:38 Temperature 98.5 F Pulse Rate 68 90 Respiratory 20 20 Rate Blood Pressure 142/111 144/83 O2 Sat by Pulse 100 95 Oximetry Medical Decision Making <Moiz Arrieta - Last Filed: 06/28/24 03:18> - Lab Data Result diagrams: 06/29/24 07:24 06/29/24 07:24 <Stephie Marin - Last Filed: 06/29/24 13:48> - Medical Decision Making Patient was medically cleared when sober and evaluated by EPS, felt to require inpatient psychiatric care. Patient will be admitted to this institution. (Moiz Arrieta) Was pt. sent in by a medical professional or institution (Dr. PA, COMPUTER TECHNOLOGIST, urgent care, hospital, or long-term...) When possible be specific @ -No Did you speak to anyone other than the patient for history (EMS, parent, family, police, friend...)? What history was obtained from this source @ -Spoke with EMS for history Did you review nursing and triage notes (agree or disagree)? Why? @ -I reviewed and agree with nursing and triage notes Were old charts reviewed (outside hosp., previous admission, EMS record, old EKG, old radiological studies, urgent care reports/EKG's, long-term records)? Report findings @ -No old charts were reviewed Differential Diagnosis (chest pain, altered mental status, abdominal pain women, abdominal pain men, vaginal bleeding, weakness, fever, dyspnea, syncope, headache, dizziness, GI bleed, back pain, seizure, CVA, palpatations, mental health, musculoskeletal)? @ -Differential Mental Health Depression, anxiety, bipolar, psychosis, schizophrenia, borderline personality, situational depression, adjustment disorder, behavioral disorder, brain tumor, malingering, substance abuse, encephalopathy, medication reaction, dementia, hypothyroidism, degenerative neurologic disorder, lupus.... This is not meant to be all-inclusive list EKG interpreted by me (3pts min.). @ -Not done X-rays interpreted by me (1pt min.). @ -None done CT interpreted by me (1pt min.). @ -None done U/S interpreted by me (1pt. min.). @ -None done What testing was considered but not performed or refused? (CT, X-rays, U/S, labs)? Why? @ -None What meds were considered but not given or refused? Why? @ -None Did you discuss the management of the patient with other professionals (professionals i.e. , PA, COMPUTER TECHNOLOGIST, lab, RT, psych nurse, nursing home social worker, helicopter technician, teacher, upscale security officer, director of casework department)? Give summary @ -Spoke with Dr. Arrieta - patient must be medically cleared first Was smoking cessation discussed for >3mins.? @ -No Was critical care preformed (if so, how long)? @ -No Were there social determinants of health that impacted care today? How? (Homelessness, low income, unemployed, alcoholism, drug addiction, transportation, low edu. Level, literacy, decrease access to med. care, senior living, rehab)? @ -No Was there de-escalation of care discussed even if they declined (Discuss DNR or withdrawal of care, Hospice)? DNR status @ -No What co-morbidities impacted this encounter? (DM, HTN, Smoking, COPD, CAD, Cancer, CVA, ARF, Chemo, Hep., AIDS, mental health diagnosis, sleep apnea, morbid obesity)? @ -etoh abuse Was patient admitted / discharged? Hospital course, mention meds given and route, prescriptions, significant lab abnormalities, going to OR and other pertinent info. @ -Upon arrival patient seen and evaluated in bed 8. No history physical exam was performed. Patient is intoxicated. He will not be sober until 1 AM. Patient will be signed out to Dr. Arrieta awaiting sobriety and at that time will undergo his mental health evaluation Undiagnosed new problem with uncertain prognosis? @ -No Drug Therapy requiring intensive monitoring for toxicity (Heparin, Nitro, Insulin, Cardizem)? @ -No Were any procedures done? @ -No Diagnosis/symptom? @ -Acute alcohol intoxication, acute depression, possible suicidal statements Acute, or Chronic, or Acute on Chronic? @ -Acute Uncomplicated (without systemic symptoms) or Complicated (systemic symptoms)? @ -Complicated Side effects of treatment? @ -No Exacerbation, Progression, or Severe Exacerbation? @ -No Poses a threat to life or bodily function? How? (Chest pain, USA, AR, pneumonia, PE, COPD, DKA, ARF, appy, cholecystitis, CVA, Diverticulitis, Homicidal, Suicidal, threat to staff... and all critical care pts) @ -No (Stephie Marin) - Lab Data Lab Results 06/28/24 Range/Units 03:25 SARS-CoV-2 (PCR) Not Detected (Not Detectd) Disposition Is patient prescribed a controlled substance at d/c from ED?: No Time of Disposition: 03:19 <Moiz Arrieta - Last Filed: 06/28/24 03:18> <Stephie Marin - Last Filed: 06/29/24 13:48> Clinical Impression: Alcohol intoxication, Depression, Suicidal ideation Disposition: TRANSFER TO PSYCH HOSP/UNIT Condition: Stable
[2024-06-27] MEDS: IBUPROFEN 800 MG TAB PO STA (23:00)
[2024-06-28] MEDS: ONDANSETRON ODT 4 MG TAB PO STA (01:11)
[2024-06-28] MEDS: traZODone HCL 50 MG TAB PO ONE (03:35)
[2024-06-28] MEDS ORDERED: haloperidoL 5 MG TAB PO PRN (04:59)
[2024-06-28] MEDS ORDERED: HALOPERIDOL LACTATE 5 MG/ML 1 ML VIAL IM PRN (04:59)
[2024-06-28] MEDS ORDERED: MAGNESIUM HYDROXIDE 2,400 MG/30 ML CUP PO PRN (04:59)
[2024-06-28] MEDS ORDERED: traZODone HCL 50 MG TAB PO PRN (04:59)
[2024-06-28] MEDS ORDERED: LORazepam 2 MG/ML INJ IM PRN (04:59)
[2024-06-28] MEDS: LORazepam 1 MG TAB PO PRN (06:00)
[2024-06-28] MEDS: ONDANSETRON ODT 4 MG TAB PO PRN (06:00)
[2024-06-28] MEDS: NICOTINE 14MG/24HR PATCH TRANSDERM SCH (08:52)
[2024-06-28] MEDS ORDERED: FLUoxetine HCL 20 MG CAP PO SCH (10:15)
[2024-06-28] MEDS: FLUoxetine HCL 20 MG CAP PO ONE (11:54)
--- NOTE | 2024-06-28 12:21 | P.HP ---
Psychiatric H&P - . H&P Date: 06/28/24 History & Physical: Allergies Allergy/AdvReac Type Severity Reaction Status Date / Time No Known Allergies Allergy Verified 06/27/24 20:40 Vital Signs Temp 97.7 F 06/28/24 09:00 Pulse 53 L 06/28/24 09:00 Resp 16 06/28/24 09:00 BP 127/75 06/28/24 09:00 Pulse Ox 100 06/28/24 09:00 FiO2 Intake & Output 06/27/24 06/28/24 06/28/24 18:59 06:59 18:59 Weight 63.191 kg Laboratory Last Values SARS-CoV-2 (PCR) Not Detected (Not Detectd) 06/28/24 03:25 06/28/24 12:04 IDENTIFYING DATA: Patient is a 69-year-old male with a guardian, living independently, retired CHIEF COMPLAINT: SI HPI: Patient presented to the hospital with suicidal statements. Per EPS, "Pt was medically clear at 0200. Pt presents involuntary, petitioned via his guardian; "Elder is suicidal intoxicated and possibly on drugs, threatening to kill himself." Pt currently denies SI, HI, hallucinations and no delusional thoughts verbalized. Pt states "I just started getting neuropathy in my hands and my left foot. My cleaning lady was at my house yesterday and I said something stupid. I guess I need to watch what I say. I said 'I just want to with these hands. I can't stand this.' If I was really suicidal I wouldn't be here." Per police who brought pt in, he made suicidal statements that he may as well . Pt states he made these statements because his family doesn't visit him." Patient seen and evaluated on the unit and was agreeable with speaking to food writer in office. He states joking to his cleaning lady about wanting to given his medical comorbidities however she did not take this well. He mentions if he really meant that he would have acted on these thoughts by now and that he was more expressing himself. He did admit to drinking at the time, stated he has been drinking half of 1/5 of hard liquor per day for the last 2-3 weeks with reported 5-week sobriety prior to. He states his alcohol use fluctuates and that he will have a period of sobriety with a period of binging. He has gone to rehab twice before however he is not interested in rehab at this time. He denies any sleep or appetite changes, low energy or anhedonia. He says his anxiety comes and goes however it appears stable at this time. He does report nonadherence with his psychotropic medications however is agreeable with restarting them. Patient denies any suicidal or homicidal ideations intent or plan. At this time patient denies any auditory or visual hallucinations. Patient denies any flight of ideas racing thoughts and increased in goal directed behavior. Patient admits to using alcohol, drinking half of 1/5/day, smoking a pack per day of cigarettes, denying any cannabis or other substances. PAST PSYCHIATRIC HISTORY: Patient has a history of depression, alcohol use disorder. Patient denies being on any psychiatric medications. Patient has had 1 previous inpatient hospitalizations at this facility back in February 2023. Patient denies any psychiatric outpatient follow-up. Patient denies any history of suicide attempts in the past. PMH: as per ER note ALLERGIES: as per EMR SUBSTANCE USE HISTORY: As per HPI FAMILY PSYCHIATRIC/SUBSTANCE USE HISTORY: Patient states his mother had bipolar SOCIAL HISTORY: Patient has a guardian however is living independently. He has 2 daughters whom he is estranged from given his substance use. He completed some college however is retired. MENTAL STATUS EXAM: General Appearance: Patient appears to be stated age is alert, directable, and attempts to cooperate. Patient appears to have poor hygiene and grooming. He has a left leg BKA Behavior: Patient is seated without any agitated behavior. He ambulates via wheelchair Speech: Patient's speech is fluent and nonpressured. Mood/Affect: Patient reports their mood is "okay", affect is congruent and reactive Suicidality/Homicidality: Patient denies having any homicidal ideation intent or plan. Denies any suicidal ideations intent or plan Perceptions: Patient denies any visual hallucinations and denies any auditory hallucinations Though content/process: There is no evidence of any delusional thought content and thought process is linear and goal-directed. Memory and concentration: AOX3, grossly intact for the purposes of this session. Can spell "WORLD" backwards Judgment and insight: Poor STRENGTHS/WEAKNESSES: strength is that patient is resilient and has a public guardian. Weakness is that patient has poor judgment, lack of family support and is impulsive INTELLECT: Average IMPRESSIONS: Depression, unspecified Rule out substance-induced depressive disorder Alcohol use disorder, severe in withdrawal Nicotine dependence PLAN: -Patient is admitted under voluntary status to [facility] for stabilization of psychiatric symptoms and safety. Patient has signed adult voluntary form and and is placed in patient's chart. -Medications : Start Prozac 20 mg daily for depression (plan on increasing this medication to 40 mg daily tomorrow), start naltrexone 50 mg daily tomorrow for alcohol use, start trazodone tonight 50 mg at bedtime for insomnia -Ativan and Haldol PRN for agitation/aggression -Started thiamine, MVM for etoh use -CIWA protocol with Ativan PRN for ETOH withdrawal. -Patient was counselled on substance abuse and desired to cut back on use-Will offer patient subtance use rehab however he declined at this time -Patient was informed of the risks, benefits and side effects of the medication and patient verbally consented to taking the medications. Patient signed med consent form and was placed in chart. -Internal Medicine consult to perform medical evaluation and physical. -NRT -nicotine patch -SW on board for discharge planning. Encourage patient to participate in groups to work on coping skills. Anticipate discharge back home early next week
[2024-06-28] MEDS ORDERED: ALBUTEROL INHALER 60 PUFF/8 GM INHALER (MHU) INHALATION PRN (19:22)
[2024-06-28] MEDS: ACETAMINOPHEN TAB 325 MG TAB PO PRN (20:15)
[2024-06-28] MEDS: NICOTINE 21MG/24HR PATCH TRANSDERM SCH (20:16)
[2024-06-28] MEDS: traZODone HCL 50 MG TAB PO SCH (20:16)
[2024-06-29] MEDS: IBUPROFEN 600 MG TAB PO PRN (04:19)
[2024-06-29 08:03] LABS: Basophils % (A) 1 %; Eosinophils % (A) 0 %; HCT 48.6 % (39.0-53.0); HGB 15.3 gm/dL (13.0-17.5); Hypochromasia Slight; Lymphocytes # (A) 1.3 k/uL (1.0-4.8); Lymphocytes % (A) 22 %; MCH 31.7 pg (25.0-35.0); MCHC 31.6 g/dL (31.0-37.0); MCV 100.5 fL (80.0-100.0); Mean Platelet Volume 7.6; Monocytes # (A) 0.4 k/uL (0-1.0); Monocytes % (A) 7 %; Neutrophils # (A) 3.9 k/uL (1.3-7.7); Neutrophils % (A) 68 %; Platelet Count 213 k/uL (150-450); RBC 4.84 m/uL (4.30-5.90); RDW 13.2 % (11.5-15.5); WBC 5.7 k/uL (3.8-10.6)
[2024-06-29 08:19] LABS: ALT 21 U/L (4-49); AST 47 U/L (17-59); African American GFR (CKD) >90 (>60 ml/min/1.73 sqM); Albumin 4.4 g/dL (3.5-5.0); Alkaline Phosphatase 60 U/L (38-126); Anion Gap 7 mmol/L; Bilirubin, Delta 0.3 mg/dL (0.0-0.2); Bilirubin,Unconjugated 0.7 mg/dL (0.0-1.1); Blood Urea Nitrogen 12 mg/dL (9-20); Calcium 9.6 mg/dL (8.4-10.2); Carbon Dioxide 30 mmol/L (22-30); Chloride 100 mmol/L (98-107); Glucose 82 mg/dL (74-99); Non-African American GFR(CKD) >90 (>60 ml/min/1.73 sqM); Potassium 4.6 mmol/L (3.5-5.1); Sodium 137 mmol/L (137-145); Total Protein 7.7 g/dL (6.3-8.2)
[2024-06-29] MEDS: NALTREXONE HCL 50 MG TAB PO SCH (08:50)
[2024-06-29] MEDS: THIAMINE 100 MG TAB PO SCH (08:50)
[2024-06-29] MEDS: FLUoxetine HCL 20 MG CAP PO SCH (08:50)
[2024-06-29] MEDS: FOLIC ACID 1 MG TAB PO SCH (08:51)
[2024-06-29] MEDS: MULTIVITAMINS, THERA 1 EACH TAB PO SCH (08:51)
--- NOTE | 2024-06-29 10:58 | P.PN ---
Progress Note - Text Progress Note Date: 06/29/24 Interval history: Patient was seen sitting in the common room watching television and was direc table and agreeable to speak with administrative underwriter. Patient continues to be fairly up in the hospital. Claims that he believes his guardian informed the police to bring him in. He states that he has had a lot of stressors recently. Claims that his mood is mildly improving, denies any anxiety at this time. He apologized to administrative underwriter for being "upset" about his situation. He spoke a bit about his leg amputation last year. Has been taking his medications, claims that he did not sleep well last night, has a fair appetite. At this time patient denies any suicidal or homicidal ideations intent or plan. Denies any Auditory or visual hallucinations. Patient denies any side effects from the medications and has been compliant with meds. Mental status exam: General Appearance: Patient appears to be thin, balding, wearing glasses, stated age is alert, directable, and cooperative. Amputated left below the knee Behavior: No agitated behavior. Patient is calm and directable upset initially, attempts to cooperate Speech: Patient's speech is fluent and nonpressured. Mood/Affect: Mood is improving mildly, affect is congruent and constricted. Suicidality/Homicidality: Patient denies having any suicidal or homicidal ideation intent or plan. Perceptions: Patient denies any auditory or visual hallucinations. Though content/process: There is no evidence of any delusional thought content and thought process is linear and goal-directed. Rambling at times. Memory and concentration: AOX3, grossly intact for the purposes of this session Judgment and insight: Poor, improving mildly Assessment/Plan: Continue with current diagnosis. Patient continues to meet criteria for inpatient psychiatric admission for symptom stabilization and safety. Patient will be maintained on current psychotropic medication regimen, with exception of increasing trazodone to 100 mg nightly. Monitor for medication compliance and for any psychotropic medication side effects. Will continue to monitor ongoing response to treatment. Encouraged participation in milieu.
[2024-06-29 13:50] LABS: Chol/HDL Ratio 2.43 Ratio
[2024-06-29 15:14] LABS: Amorphous Sediment,Urine Occasional /hpf; Appearance,Urine Cloudy (Clear); Bacteria,Urine Few /hpf; Bilirubin,Urine Negative (Negative); Blood,Urine Negative (Negative); Color,Urine Yellow; Glucose,Urine (UA) Negative (Negative); Ketones,Urine Negative (Negative); Leukocyte Esterase,Urine Large (Negative); Mucus,Urine Many /hpf; Nitrite,Urine Positive (Negative); Protein,Urine 1+ (Negative); RBC,Urine 30 /hpf (0-5); Specific Gravity,Urine 1.026 (1.001-1.035); WBC,Urine >182 /hpf (0-5)
--- NOTE | 2024-06-29 17:59 | P.CONS ---
History of Present Illness - Reason for Consult Consult date: 06/28/24 Medical management Requesting physician: Martina Benavides - Chief Complaint Depression - History of Present Illness 69-year-old patient who follows with Dr. Moiz Goldstein. Patient is been drinking alcohol for a very long time. He goes for. Without drinking alcohol and goes back drinking again. This occasionally presented to the ER. Patient's guardian did make a potation for suicidal statements. According to the police who picked up the patient in the ER he did make statements that he manage well When asked the patient. He says no he is not depressed did not make suicidal statements. He said he had gone without drinking the last week again he went back drinking. Normally drinks vodka. Patient has been wheeling around in the three-way psychiatry unit. Has a left leg prosthesis. He does smoke a pack a day. Some shortness of breath. Appetite fair. Does use a walker also. Review of systems: GEN.: A bit tired EYES: None HEENT: None NECK: None RESPIRATORY: Occasional wheezing and cough CARDIOVASCULAR: None GASTROINTESTINAL: None GENITOURINARY: None MUSCULOSKELETAL: Muscle weakness LYMPHATICS: None HEMATOLOGICAL: None PSYCHIATRY: Anxious NEUROLOGICAL: Does use a walker. Social history: Lives alone. 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 1/5 of vodka intermittently. Smokes1- 2 packs a day for close to 48 years Physical examination: VITAL SIGNS: 98.4, 74, 16, 11 3 x 69, 99% room air GENERAL: Sitting up in a recliner EYES: Pupils equal. Conjunctiva normal. HEENT: External appearance of nose and ears normal, oral cavity grossly normal. Several areas of scratch angel with surrounding inflammation on the forehead NECK: JVD not raised; masses not palpable. HEART: First and second heart sounds are normal; no edema. LUNGS: Respiratory rate increased; diminished breath sounds. ABDOMEN: Soft, nontender, liver spleen not palpable, no masses palpable. PSYCH: Alert and oriented x3; mood and affect anxiousl. MUSCULOSKELETAL:No Clubbing/cyanosis;muscles-grossly intact. Decreased f muscle mass. Decreased subcutaneous fat. Left below-knee amputation with prosthesis NEUROLOGICAL: Cranial nerves grossly intact; no facial asymmetry, power and sensation grossly intact. Very minimal tremors LYMPHATICS: No lymph nodes palpable in the axilla and neck INVESTIGATIONS, reviewed in the clinical context: No labs Assessment and plan: -Alcohol use disorder Discussed with patient. -Minimal tremors from alcoholism - Chronic, alcoholic hepatitis, with hepatomegaly Patient to follow-up with Dr. Symone Christie/GI outpatient - Left below-knee amputation, with prosthesis -COPD in a current smoker Albuterol as needed -Chronic nicotine dependence, cigarette smoker Nicotine patch -Mild protein calorie malnutrition from decreased oral intake. Dietitian - Depression anxiety. Follow-up with psychiatry Past Medical History Past Medical History: COPD, Deep Vein Thrombosis (DVT) History of Any Multi-Drug Resistant Organisms: None Reported Additional Past Surgical History / Comment(s): retina surgery, L leg below knee amputation Past Anesthesia/Blood Transfusion Reactions: No Reported Reaction Past Psychological History: Anxiety, Depression Smoking Status: Current every day smoker Past Alcohol Use History: Daily, Heavy Additional Past Alcohol Use History / Comment(s): Fifth of vodka a day. Past Drug Use History: None Reported - Past Family History Father Additional Family Medical History / Comment(s): alzheimers Medications and Allergies Home Medications Medication Instructions Recorded Confirmed Type No Known Home Medications 06/27/24 06/28/24 History Allergies Allergy/AdvReac Type Severity Reaction Status Date / Time No Known Allergies Allergy Verified 06/27/24 20:40 Physical Exam Vitals: Vital Signs Temp Pulse Pulse Resp BP BP Pulse Ox 06/28/24 09:00 97.7 F 53 L 16 127/75 100 06/28/24 06:00 97.6 F 98 16 157/92 96 06/28/24 05:21 98.0 F 79 18 135/89 99 06/27/24 21:38 90 20 144/83 95 Intake and Output 06/28/24 06/28/24 06/28/24 06:59 14:59 22:59 Other: Weight 63.191 kg Results CBC & Chem 7: 06/29/24 07:24 06/29/24 07:24
--- NOTE | 2024-06-29 19:17 | P.PN ---
Progress Note - Text Progress Note Date: 06/29/24 - Chief Complaint Depression - History of Present Illness 69-year-old patient who follows with Dr. Moiz Goldstein. Patient is been drinking alcohol for a very long time. He goes for. Without drinking alcohol and goes back drinking again. This occasionally presented to the ER. Patient's guardian did make a potation for suicidal statements. According to the police who picked up the patient in the ER he did make statements that he manage well When asked the patient. He says no he is not depressed did not make suicidal statements. He said he had gone without drinking the last week again he went back drinking. Normally drinks vodka. Patient has been wheeling around in the three-way psychiatry unit. Has a left leg prosthesis. He does smoke a pack a day. Some shortness of breath. Appetite fair. Does use a walker also. June 29: Rather cheerful. Playing cards with the fellow patient. Eating well. Nurse asked evaluate the UA. Patient has no urinary symptoms. Oral intake good. Active Medications Acetaminophen (Acetaminophen Tab 325 Mg Tab) 650 mg PO Q4HR PRN PRN Reason: Mild Pain (Scale 1 to 3) Last Admin: 06/29/24 10:53 Dose: 650 mg Al Hydroxide/Mg Hydroxide (Mag Hydrox/Al Hydrox/Simeth 355 Ml Bottle) 30 ml PO Q4HR PRN PRN Reason: GI Upset Albuterol Sulfate (Albuterol Inhaler 60 Puff/8 Gm Inhaler (Mhu)) 2 puff INHALATION RT-TID PRN PRN Reason: Shortness Of Breath Or Wheezin Fluoxetine HCl (Fluoxetine Hcl 20 Mg Cap) 40 mg PO DAILY [facility] Last Admin: 06/29/24 08:50 Dose: 40 mg Folic Acid (Folic Acid 1 Mg Tab) 1 mg PO DAILY [facility] Last Admin: 06/29/24 08:51 Dose: 1 mg Haloperidol (Haloperidol 5 Mg Tab) 5 mg PO Q6HR PRN PRN Reason: Agitation Haloperidol Lactate (Haloperidol Lactate 5 Mg/Ml 1 Ml Vial) 5 mg IM Q6HR PRN PRN Reason: Severe Agitation Ibuprofen (Ibuprofen 600 Mg Tab) 600 mg PO Q6HR PRN PRN Reason: Moderate Pain (Scale 4 to 6) Last Admin: 06/29/24 04:19 Dose: 600 mg Lorazepam (Lorazepam 1 Mg Tab) 1 mg PO Q6HR PRN PRN Reason: Anxiety Last Admin: 06/29/24 13:43 Dose: 1 mg Lorazepam (Lorazepam 2 Mg/Ml Inj) 1 mg IM Q6HR PRN PRN Reason: Severe Agitation Magnesium Hydroxide (Magnesium Hydroxide 2,400 Mg/30 Ml Cup) 2,400 mg PO DAILY PRN PRN Reason: Constipation Multivitamins (Multivitamins, Thera 1 Each Tab) 1 each PO DAILY [facility] Last Admin: 06/29/24 08:51 Dose: 1 each Naltrexone HCl (Naltrexone Hcl 50 Mg Tab) 50 mg PO DAILY [facility] Last Admin: 06/29/24 08:50 Dose: 50 mg Nicotine (Nicotine 21mg/24hr Patch) 1 patch TRANSDERM DAILY [facility] Last Admin: 06/29/24 08:51 Dose: 1 patch Ondansetron HCl (Ondansetron Odt 4 Mg Tab) 4 mg PO Q6HR PRN PRN Reason: Nausea And Vomiting Last Admin: 06/29/24 13:43 Dose: 4 mg Thiamine HCl (Thiamine 100 Mg Tab) 100 mg PO DAILY [facility] Last Admin: 06/29/24 08:50 Dose: 100 mg Trazodone HCl (Trazodone Hcl 100 Mg Tab) 100 mg PO [facility] Social history: Lives alone. 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 1/5 of vodka intermittently. Smokes1- 2 packs a day for close to 48 years Physical examination: VITAL SIGNS: 97.2, 85, 16, 130 send 80, 95% room air GENERAL: Sitting up on a table, playing cards EYES: Pupils equal. Conjunctiva normal. HEENT: External appearance of nose and ears normal, oral cavity grossly normal. Several areas of scratch angel with surrounding inflammation on the forehead NECK: JVD not raised; masses not palpable. HEART: First and second heart sounds are normal; no edema. LUNGS: Respiratory rate increased; diminished breath sounds. ABDOMEN: Soft, nontender, liver spleen not palpable, no masses palpable. PSYCH: Alert and oriented x3; mood and affect anxiousl. MUSCULOSKELETAL:No Clubbing/cyanosis;muscles-grossly intact. Decreased f muscle mass. Decreased subcutaneous fat. Left below-knee amputation with prosthesis INVESTIGATIONS, reviewed in the clinical context: June 29: White count 5.7 hemoglobin 15.3 platelets 213 potassium 4.6 creatinine 0.82 AST 47 ALT 21 SARS-CoV-2: Negative UA positive for leukoesterase, WBC, amorphous sediment occasional Assessment and plan: -Alcohol use disorder Discussed with patient. -Minimal tremors from alcoholism - Chronic, alcoholic hepatomegaly Patient to follow-up with Dr. Symone Christie/GI outpatient - Left below-knee amputation, with prosthesis -COPD in a current smoker Albuterol as needed -Chronic nicotine dependence, cigarette smoker Nicotine patch -Mild protein calorie malnutrition from decreased oral intake. Ensure - Depression unspecified. Follow-up with psychiatry -Asymptomatic bacteriuria No antibiotics Past Medical History Past Medical History: COPD, Deep Vein Thrombosis (DVT) History of Any Multi-Drug Resistant Organisms: None Reported Additional Past Surgical History / Comment(s): retina surgery, L leg below knee amputation Past Anesthesia/Blood Transfusion Reactions: No Reported Reaction Past Psychological History: Anxiety, Depression Smoking Status: Current every day smoker Past Alcohol Use History: Daily, Heavy Additional Past Alcohol Use History / Comment(s): Fifth of vodka a day. Past Drug Use History: None Reported
[2024-06-29] MEDS: traZODone HCL 100 MG TAB PO SCH (20:46)
--- NOTE | 2024-06-30 11:48 | P.PN ---
Progress Note - Text Progress Note Date: 06/30/24 Interval history: Patient was seen sitting in the common room watching television and was direc table and agreeable to speak with automobile service writer. Patient brought his paperwork with him, read out some of the petition and believes that the guardian "made a lot of this up" and states that it was "a big liar". He claims that he is still feeling frustrated with being in the hospital, claims that he would like to meet with the assistant county attorney. States that his mood and anxiety been improving, he remains social on the unit. Claims that he slept a bit better last night however wanted an increase in his trazodone. He apologized to automobile service writer for being "upset" about his situation. He states that he has a fair appetite. At this time patient denies any suicidal or homicidal ideations intent or plan. Denies any Auditory or visual hallucinations. Patient denies any side effects from the medications and has been compliant with meds. Mental status exam: General Appearance: Patient appears to be thin, balding, wearing glasses, stated age is alert, directable, and cooperative. Amputated left below the knee Behavior: No agitated behavior. Patient is calm and directable, attempts to cooperate Speech: Patient's speech is fluent and nonpressured. Mood/Affect: Mood is improving mildly, affect is congruent and constricted. Improving mildly Suicidality/Homicidality: Patient denies having any suicidal or homicidal ideation intent or plan. Perceptions: Patient denies any auditory or visual hallucinations. Though content/process: There is no evidence of any delusional thought content and thought process is linear and goal-directed. Rambling at times. Memory and concentration: AOX3, grossly intact for the purposes of this session Judgment and insight: Poor, improving mildly Assessment/Plan: Continue with current diagnosis. Patient continues to meet criteria for inpatient psychiatric admission for symptom stabilization and safety. Patient will be maintained on current psychotropic medication regimen, increasing trazodone to 150 mg nightly. Monitor for medication compliance and for any psychotropic medication side effects. Will continue to monitor ongoing response to treatment. Encouraged participation in milieu.
[2024-06-30 12:12] LABS: Urine Alcohol Negative (Negative)
[2024-06-30 12:13] LABS: Urine Barbiturate Negative (Negative); Urine Cocaine Negative (Negative); Urine Methadone Negative (Negative); Urine Opiates Negative (Negative); Urine Phencyclidine Negative (Negative)
[2024-06-30] MEDS: MAG HYDROX/AL HYDROX/SIMETH 355 ML BOTTLE PO PRN (16:25)
[2024-06-30] MEDS: traZODone HCL 50 MG TAB PO SCH (21:13)
[2024-07-01 03:35] VITALS: RESP 16
[2024-07-01 11:39] VITALS: BP 110/70; PULSE 78; TEMP 98.3
--- NOTE | 2024-07-01 14:02 | P.DS ---
Providers Date of admission: 06/28/24 04:56 Expected date of discharge: 07/01/24 Attending physician: Martina Benavides MD Consults: 06/28/24 04:59 Consult Physician Routine Consulting Provider: Robbin Contreras Consult Reason/Comments: For H & P for Medical Follow Up Do you want consulting provider notified?: Yes, Notify in am Primary care physician: Moiz Goldstein - Discharge Diagnosis(es) (1) Depression Status: Acute Priority: High (2) Alcohol use disorder, severe, dependence Status: Acute Priority: High (3) Nicotine dependence Status: Acute Priority: Low Hospital Course: Admission HPI: Admission note was completed by real estate underwriter "Patient presented to the hospital with suicidal statements. Per EPS, "Pt was medically clear at 0200. Pt presents involuntary, petitioned via his guardian; "Elder is suicidal intoxicated and possibly on drugs, threatening to kill himself." Pt currently denies SI, HI, hallucinations and no delusional thoughts verbalized. Pt states "I just started getting neuropathy in my hands and my left foot. My cleaning lady was at my house yesterday and I said something stupid. I guess I need to watch what I say. I said 'I just want to with these hands. I can't stand this.' If I was really suicidal I wouldn't be here." Per police who brought pt in, he made suicidal statements that he may as well . Pt states he made these statements because his family doesn't visit him." Patient seen and evaluated on the unit and was agreeable with speaking to real estate underwriter in office. He states joking to his cleaning lady about wanting to given his medical comorbidities however she did not take this well. He mentions if he really meant that he would have acted on these thoughts by now and that he was more expressing himself. He did admit to drinking at the time, stated he has been drinking half of 1/5 of hard liquor per day for the last 2-3 weeks with reported 5-week sobriety prior to. He states his alcohol use fluctuates and that he will have a period of sobriety with a period of binging. He has gone to rehab twice before however he is not interested in rehab at this time. He denies any sleep or appetite changes, low energy or anhedonia. He says his anxiety comes and goes however it appears stable at this time. He does report nonadherence with his psychotropic medications however is agreeable with restarting them. Patient denies any suicidal or homicidal ideations intent or plan. At this time patient denies any auditory or visual hallucinations. Patient denies any flight of ideas racing thoughts and increased in goal directed behavior. Patient admits to using alcohol, drinking half of 1/5/day, smoking a pack per day of cigarettes, denying any cannabis or other substances." Hospital course: Upon admission to the unit patient was directable and agreeable to commence treatment and signed adult voluntary form.. Patient got along well with other patients on the unit and followed unit protocol. Patient was compliant with the medications and denied any side effects throughout hospital course. Patient was started on Prozac and this was increased to 40 mg daily for depression/anxiety, naltrexone 50 mg daily for alcohol cravings, trazodone 50 mg at bedtime for insomnia. Patient spoke of his stressors and engaged in therapy both group and individual. Patient was also seen by medical team for history and physical exam. Throughout the course of the hospitalization patient gradually improved with regards to mood, anxiety, sleep and became more future oriented with improved insight and judgment. On the day of discharge patient denied any suicidal or homicidal ideations intent or plan denied any auditory or visual hallucinations. The patient denied any access to guns or weapons. Patient luis ed any paranoia and did not endorse any delusions. Patient does have a significant history of substance abuse and was counseled on abstaining from all substances including alcohol and marijuana. Patient was offered however declined inpatient substance-abuse rehab. Patient was also counseled on the medications and need for regular compliance and was encouraged to follow-up with their outpatient appointment for mental health and also for primary care. Patient to be discharged back home alone and will follow-up with [facility] addiction social worker. Mental status exam: General Appearance: Patient appears to be stated age is alert, pleasant, and cooperative. Patient is in no acute distress and has improved hygiene and grooming Behavior: Patient is calmly seated without any agitated behavior. Speech: Patient's speech is fluent and nonpressured. Mood/Affect: Patient reports their mood is "good", affect is congruent and euthymic. Suicidality/Homicidality: Patient denies having any suicidal or homicidal ideation intent or plan. Perceptions: Patient denies any auditory or visual hallucinations. Though content/process: There is no evidence of any delusional thought content and thought process is linear and goal-directed. More future oriented Memory and concentration: AOX3, grossly intact for the purposes of this session. Can spell "WORLD" backwards correctly. Judgment and insight: Chronically poor, however has improved with guarded prognosis Impression: Depression, unspecified Rule out substance-induced depressive disorder Alcohol use disorder, severe Nicotine dependence Plan: -Continue with discharge today as patient has improved and stabilized psychiatrically and is not currently an imminent threat to themself and/or others. Patient will remain at chronically elevated risk for harm to self and/or others due to their impulsivity and substance abuse. -Continue medications: Prozac 40 mg daily, naltrexone 50 mg daily, trazodone 50 mg at bedtime -Patient was counseled on the need for medication compliance and appropriate follow-up at mental health and also primary care for medical issues. Patient verbalized understanding and agreed. -Social work to [help coordinate patients discharge today. also to ensure safe home environment that guns/weapons are either removed from the home or locked away. Social work also to arrange for patients follow up appointments with [facility] addiction social worker for psychiatric care along with follow up with primary care provider. -Patient counseled on abstaining from recreational drugs and marijuana and alcohol. Was informed/educated on the adverse effects on their physical and mental health. Patient verbally agreed and understood. Patient was offered substance abuse treatment however declined at this time. -Patient was instructed to return to the hospital or seek immediate medical care if their psychiatric or medical symptoms do worsen or reoccur. Abnormal Labs 06/29/24 06/29/24 06/29/24 07:24 07:24 14:45 MCV 100.5 H Delta Bilirubin 0.3 H Cholesterol 213.00 H HDL Cholesterol 87.50 H Urine Protein 1+ H Ur Leukocyte Esterase Large H Urine RBC 30 H Urine WBC >182 H Amorphous Sediment Occasional H Urine Bacteria Few H Urine Mucus Many H U Benzodiazepines Scrn U Cannabinoids Screen 06/29/24 14:45 MCV Delta Bilirubin Cholesterol HDL Cholesterol Urine Protein Ur Leukocyte Esterase Urine RBC Urine WBC Amorphous Sediment Urine Bacteria Urine Mucus U Benzodiazepines Scrn Positive A U Cannabinoids Screen Positive A Vital Signs Temp 98.3 F 07/01/24 09:00 Pulse 78 07/01/24 09:00 Resp 16 07/01/24 09:00 BP 110/70 07/01/24 09:00 Pulse Ox 96 07/01/24 09:00 FiO2 Intake & Output 06/30/24 07/01/24 07/01/24 18:59 06:59 18:59 Weight 60.4 kg Allergies Allergy/AdvReac Type Severity Reaction Status Date / Time No Known Allergies Allergy Verified 06/27/24 20:40 Patient Condition at Discharge: Stable Plan - Discharge Summary Discharge Rx Participant: Yes New Discharge Prescriptions: New traZODone HCL [Desyrel] 150 mg PO HS 30 Days #90 tab Multivitamins, Thera [Multivitamin (formulary)] 1 each PO DAILY 30 Days #30 tab FLUoxetine HCL [PROzac] 40 mg PO DAILY 30 Days #60 cap Thiamine [Vitamin B-1] 100 mg PO DAILY 30 Days #30 tab Folic Acid 1 mg PO DAILY 30 Days #30 tab Nicotine 21Mg/24Hr Patch [Habitrol] 1 patch TRANSDERM DAILY 30 Days #30 patch Naltrexone HCl [Revia] 50 mg PO DAILY 30 Days #30 tab Discharge Medication List FLUoxetine HCL [PROzac] 40 mg PO DAILY 30 Days #60 cap 07/01/24 [Rx] Folic Acid 1 mg PO DAILY 30 Days #30 tab 07/01/24 [Rx] Multivitamins, Thera [Multivitamin (formulary)] 1 each PO DAILY 30 Days #30 tab 07/01/24 [Rx] Naltrexone HCl [Revia] 50 mg PO DAILY 30 Days #30 tab 07/01/24 [Rx] Nicotine 21Mg/24Hr Patch [Habitrol] 1 patch TRANSDERM DAILY 30 Days #30 patch 07/01/24 [Rx] Thiamine [Vitamin B-1] 100 mg PO DAILY 30 Days #30 tab 07/01/24 [Rx] traZODone HCL [Desyrel] 150 mg PO HS 30 Days #90 tab 07/01/24 [Rx] Follow up Appointment(s)/Referral(s): [facility] [Outside] - 07/03/24 3:00 pm (Gunjan Wakefield ) Moiz Goldstein MD [Primary Care Provider] - 1-2 days Patient Instructions/Handouts: How to Stop Smoking (DC), Depression (DC), Abuse of Alcohol (DC) Activity/Diet/Wound Care/Special Instructions: [facility] Discharge Info Avoid the use of street drugs and alcohol. Take all medications as prescribed. When you are in need of refills on your medications, please contact your outpatient medical provider and/or outpatient psychiatrist. Please go to your scheduled outpatient appointments for aftercare treatment. If symptoms return or become worse, call the crisis line at or and/or visit the nearest emergency room for assistance. [place] Suicide and Crisis Lifeline - call or text [phone]. Discharge/Stand Alone Forms: AA Vincent Gao Discharge Disposition: HOME SELF-CARE
== END 2024-07-01 12:25 | disposition home or self-care (01) | DRG 881 ==
LOC: EC 18:59 → EEVIPCON 18:59 → 3MHU 06-28 04:56
PROVIDERS: ADMIT Psychiatry & Neurology Psychiatry; ATTEND Psychiatry & Neurology Psychiatry
DX: F32.A Depression, unspecified (principal); E44.1 Mild protein-calorie malnutrition; F10.229 Alcohol dependence with intoxication, unspecified; J44.9 Chronic obstructive pulmonary disease, unspecified; K70.10 Alcoholic hepatitis without ascites; F10.239 Alcohol dependence with withdrawal, unspecified; R45.851 Suicidal ideations; Z68.1 Body mass index [BMI] 19.9 or less, adult; F17.210 Nicotine dependence, cigarettes, uncomplicated; F41.9 Anxiety disorder, unspecified; G47.00 Insomnia, unspecified; R16.0 Hepatomegaly, not elsewhere classified; R82.71 Bacteriuria; Z79.899 Other long term (current) drug therapy; Z97.14 Presence of artificial left leg (complete) (partial); Z89.512 Acquired absence of left leg below knee
CPT/HCPCS: 80053; 80061; 80306; 81001; 82075; 82248; 83036; 84443; 85025; 87635; 99285